=== PATIENT | female | born 1935 | race Caucasian/White ===

== ENCOUNTER → 2018-03-25 06:58 | Outpatient (CLI) | payer MEDICARE, OTHER, SELFPAY ==
[2018-03-25 08:33] LABS: Hemoglobin A1C% w Est Avg Glu 5.7 % (4.0-6.0)
[2018-03-25 08:47] LABS: Alanine Aminotransferase 20 IU/L (9-52); Albumin Globulin Ratio 0.9 (1.0-2.8); Alkaline Phosphatase 68 U/L (38-126); Aspartate Aminotransferase 20 IU/L (14-36); BUN Creatinine Ratio 16.7 (6-22); Bilirubin Total 0.4 mg/dL (0.2-1.3); Blood Urea Nitrogen 15 mg/dL (7-17); Calcium 9.6 mg/dL (8.4-10.2); Carbon Dioxide 30 mmol/L (22-32); Chloride 104 mmol/L (98-107); Cholesterol 169 mg/dL (140-199); Estimated Glomerular Filt Rate 59.8 mL/min (>60); Globulin 4.4 g/dL (1.7-4.1); Glucose 98 mg/dL (80-110); HDL Cholesterol 69 mg/dL (40-60); HEMOLYSIS < 15 (0-50); LDL Cholesterol Calculated 87 mg/dL (<100); Potassium 3.8 mmol/L (3.4-5.1); Sodium 142 mmol/L (137-145); Total Protein 8.4 g/dL (6.3-8.2); Triglycerides 64 mg/dL (35-150)
[2018-03-25 09:02] LABS: Free T3, Triiodothyronine Free 3.16 pg/mL (2.77-5.27); Free T4, Direct Thyroxine 1.22 ng/dL (0.78-2.19)
[2018-03-25 09:16] LABS: Thyroid Stimulating Hormone 3.93 uIU/mL (0.47-4.68)
[2018-03-25 09:23] LABS: Ferritin 70.7 ng/mL (11.1-264)
== END ==
PROVIDERS: PCP Physician Assistant; Visit Provider Physician Assistant
DX: E03.9 Hypothyroidism, unspecified (principal); R79.89 Other specified abnormal findings of blood chemistry; D64.9 Anemia, unspecified
CPT/HCPCS: 36415; 80053; 80061; 82728; 83036; 84439; 84443; 84481

== ENCOUNTER → 2018-04-17 07:14 | Outpatient (CLI) | payer MEDICARE, OTHER, SELFPAY ==
[2018-04-17 08:02] LABS: Add Manual Diff / Slide Review NO; Basophils Percent Auto 0.7 % (0-2); Eosinophils Percent Auto 1.2 % (2-4); Hematocrit 36.2 % (36-46); Hemoglobin 12.2 g/dL (12.0-16.0); Mean Corpuscular HGB Conc 33.6 % (30-36); Mean Corpuscular Hemoglobin 32.8 PG (26-34); Mean Corpuscular Volume 97.6 fL (80-100); Monocytes Percent Auto 8.9 % (3-14); Neutrophils Absolute Auto 3000 /uL (3000-5900); Neutrophils Percent Auto 64.2 % (50-75); Platelet Count 257 X10^3/uL (150-400); Red Blood Cell Count 3.71 X10^6/uL (4.0-5.2); Red Cell Distribution Width 12.9 % (11.6-14.8); White Blood Cell Count 4.7 X10^3/uL (4.5-11.0)
[2018-04-17 08:43] LABS: Ferritin 69.3 ng/mL (11.1-264)
[2018-04-17 08:57] LABS: Vitamin B12 870 pg/mL (239-931)
[2018-04-17 09:20] LABS: HEMOLYSIS < 15 (0-50); Iron 66 ug/dL (37-170)
[2018-04-17 09:30] LABS: Percent Iron Saturation 25 % (15-50); Total Iron Binding Capacity 262 ug/dL (265-497); Transferrin 212 mg/dL (206-381)
== END ==
PROVIDERS: PCP Physician Assistant; Visit Provider Physician Assistant
DX: D64.9 Anemia, unspecified (principal)
CPT/HCPCS: 36415; 82607; 82728; 83540; 83550; 85025

== ENCOUNTER → 2018-05-20 12:34 | Outpatient (CLI) | payer MEDICARE, OTHER, SELFPAY | PROVIDERS: PCP Physician Assistant; Visit Provider Physician Assistant | DX: R19.7 Diarrhea, unspecified (principal) | CPT/HCPCS: 87015; 87045; 87427 ==

== ENCOUNTER → 2018-05-21 10:06 | Outpatient (CLI) | payer MEDICARE, OTHER, SELFPAY ==
[2018-05-21 11:10] LABS: Clostridium Difficile Tox PCR Negative for C. diff
== END ==
PROVIDERS: PCP Physician Assistant; Visit Provider Physician Assistant
DX: R19.7 Diarrhea, unspecified (principal)
CPT/HCPCS: 87493

== ENCOUNTER → 2018-06-18 13:16 | Outpatient (CLI) | payer MEDICARE, OTHER, SELFPAY ==
[2018-06-18 15:08] LABS: Thyroid Stimulating Hormone 1.88 uIU/mL (0.47-4.68)
== END ==
PROVIDERS: PCP Physician Assistant; Visit Provider Physician Assistant
DX: E03.9 Hypothyroidism, unspecified (principal); R63.4 Abnormal weight loss
CPT/HCPCS: 36415; 84443

== ENCOUNTER 2018-07-04 12:30 | Emergency (ER) | payer MEDICARE, OTHER, SELFPAY ==
[2018-07-04 12:36] VITALS: BP 138/63; PULSE 80; RESP 16; TEMP 36.9; O2SAT 99; BMI 16.7
--- NOTE | 2018-07-04 12:48 | ED.GIBLEED ---
HPI - GI Bleed General Chief complaint: GI Bleed Stated complaint: BLACK STOOL, LIQUID Time Seen by Provider: 07/04/18 12:46 Source: patient Mode of arrival: ambulatory Limitations: no limitations History of Present Illness HPI Narrative: 82-year-old female here for evaluation of 2 episodes of black stools. Patient states she has had diarrhea for the past 4 months. 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 She states that she has diarrhea every time she goes the bathroom. She states that can be 1 time a day are multiple times a day. She states that last evening she had 1 episode of abdominal pain and then afterwards had black colored stools. She had 1 episode of black up the stools this morning. She states that over the past month about half the time she has dark-colored stools. Denies use of blood thinners or anti-inflammatories. Has never had a blood transfusion in the past. Has not seen a GI provider. Related Data Home Medications Medication Instructions Recorded Confirmed Melatonin See Label Instructions .ROUTE 05/22/18 06/11/18 .COMPLEX thyroid (pork) [Nature-Throid] 07/04/18 Previous Rx's Medication Instructions Recorded pneumococcal 13-conrado conj 0.5 ml IM ONCE #0.5 ml 05/22/18 vaccine-dip crm (PF) 0.5 mL IM syringe varicella-zoster glycoE [id number] 0.5 ml IM ONCE #1 each 05/22/18 adj(PF) 50 mcg/0.5 mL IM susp, kit levothyroxine 50 mcg tablet 50 mcg PO DAILY #45 tab 06/18/18 Allergies Allergy/AdvReac Type Severity Reaction Status Date / Time Penicillins [PENICILLINS] Allergy Intermediate Rash all Verified 06/11/18 12:30 over body wheat Allergy Intermediate Red Verified 06/11/18 12:30 Blotchy spots, mainly on face diary Allergy Intermediate red Uncoded 06/11/18 12:30 blotchy skin, mainly on face Nuts Allergy Intermediate Red Uncoded 06/11/18 12:30 blotchy spots, mainly on face Review of Systems Constitutional Denies fever(s) Cardiovascular Denies chest pain and Denies dyspnea Respiratory Denies dyspnea Gastrointestinal Gastrointestinal: Reports abdominal pain, Denies change in stool character, Denies coffee ground emesis, Denies constipation, Reports diarrhea, Denies nausea and Denies vomiting Comments: Black-colored stools Genitourinary Denies dysuria and Denies vaginal discharge Musculoskeletal Denies myalgias and Denies arthralgias Integumentary/Breasts Denies lesions and Denies rash Hematologic/Lymphatic Denies easy bleeding and Denies easy bruising [facility] Medical History H/O: hysterectomy (Acute) Hypothyroidism (Chronic Unknown) Osteopenia (Chronic Unknown) Social History Smoking Status: Never smoker second hand exposure: Yes (My used to smoke for 10 years, but then he quit in 1963) alcohol intake: current (Glass of wine at night, occasionally) substance use type: does not use Exam Initial Vital Signs Initial Vital Signs: Vital Signs Temperature 98.4 F 07/04/18 12:36 Pulse Rate 80 07/04/18 12:36 Respiratory Rate 16 07/04/18 12:36 Blood Pressure 138/63 07/04/18 12:36 Pulse Oximetry 99 07/04/18 12:36 Const General: cooperative, comfortable, well groomed and No acute distress Orientation: alert, awake and oriented x3 Resp Effort & Inspection: normal respiratory effort Auscultation: clear to auscultation bilaterally Cardio Rate: regular rate Rhythm: regular rhythm GI Inspection: non-distended Palpation: soft, No firm and No tender Rectal Exam: heme negative stool and No hemorrhoids Skin Lesions: no lesions Rashes: no rashes Neuro General: alert, awake and oriented x3 Cognition: normal cognition Speech: speech normal Extrem General: normal to inspection and capillary refill normal Psych Appearance: grossly normal and well kempt Course Orders Ordered: ED Orders 07/04/18 13:25 Basic Metabolic Panel Stat Complete Blood Count AUTO DIFF Stat Partial Thromboplastin Time Stat Prothrombin Time INR Stat Type and Screen Stat Vital Signs - 8 hr 07/04/18 12:36 07/04/18 14:03 Temperature 98.4 F Pulse Rate 80 70 Respiratory Rate 16 15 Blood Pressure 138/63 Blood Pressure [Right Arm] 133/64 Pulse Oximetry 99 98 MDM - GI Bleed Lab Data Attestation: I reviewed the patient's lab results. Result diagrams: 07/04/18 13:25 07/04/18 13:25 Lab Results 07/04/18 07/04/18 07/04/18 Range/Units 13:25 13:25 13:25 WBC 5.2 (4.5-11.0) X10^3/uL RBC 3.46 L (4.0-5.2) X10^6/uL Hgb 10.9 L (12.0-16.0) g/dL Hct 32.9 L (36-46) % MCV 95.1 (80-100) fL MCH 31.4 (26-34) PG MCHC 33.0 (30-36) % RDW 12.7 (11.6-14.8) % Plt Count 238 (150-400) X10^3/uL Neut % (Auto) 70.7 (50-75) % Lymph % (Auto) 21.1 L (25-40) % [place] % (Auto) 7.2 (3-14) % Eos % (Auto) 0.3 L (2-4) % Baso % (Auto) 0.7 (0-2) % Neut # (Auto) 3600 (4642-8281) /uL PT 11.9 (10.1-12.7) SECONDS INR 1.1 (0.9-1.3) APTT 31 (26.4-36.2) SECONDS Sodium 141 (137-145) mmol/L Potassium 3.8 (3.4-5.1) mmol/L Chloride 104 (98-107) mmol/L Carbon Dioxide 25 (22-32) mmol/L BUN 19 H (7-17) mg/dL Creatinine 1.00 (0.52-1.04) mg/dL Estimated GFR 53.0 L (>60) mL/min BUN/Creatinine Ratio 19.0 (6-22) Glucose 138 H (80-110) mg/dL Calcium 9.4 (8.4-10.2) mg/dL [facility] Narrative Medical decision making narrative: Patient was Hemoccult negative here in the emergency department however her story is somewhat concerning for an upper GI bleed. She is not tachycardic. Not hypotensive. Does not anemic. Has had diarrhea for the past 4 months. I did discuss all this with her. I informed her that she needed to talk with her primary doctor regarding a referral to see GI. She has had a colonoscopy in the past but she does not know what time this was. No indication for emergent admission here to the hospital. She was given return precautions. She expressed understanding and agreement with plan. Discharge Plan Departure Patient Disposition: Home Clinical Impression: Diarrhea Instructions: Diarrhea (Alternative Therapy), Diarrhea Activity Restrictions/Additional Instructions: Highly recommend you contact your primary care doctor to discuss referral to see Gastroenterology. Continue to increase your fluid intake. Return to the emergency department for any new or worsening symptoms Prescriptions: No Action Melatonin See Patient Comments .ROUTE .COMPLEX RF: 0 pneumoc 13-conrado conj-dip cr(PF) [Prevnar 13 (PF)] 0.5 mL syringe 0.5 ml IM ONCE Qty: 0.5 RF: 0 varicella-zoster [id number]-AS01B (PF) [Shingrix (PF)] 50 mcg/0.5 mL suspension for reconstitution 0.5 ml IM ONCE Qty: 1 RF: 1 levothyroxine 50 mcg tablet 50 mcg PO DAILY Qty: 45 RF: 1 thyroid (pork) [Nature-Throid] 32.5 mg tablet RF: 0
[2018-07-04 13:39] LABS: Add Manual Diff / Slide Review NO; Basophils Percent Auto 0.7 % (0-2); Eosinophils Percent Auto 0.3 % (2-4); Hematocrit 32.9 % (36-46); Hemoglobin 10.9 g/dL (12.0-16.0); Lymphocytes Percent Auto 21.1 % (25-40); Mean Corpuscular Hemoglobin 31.4 PG (26-34); Mean Corpuscular Volume 95.1 fL (80-100); Monocytes Percent Auto 7.2 % (3-14); Neutrophils Absolute Auto 3600 /uL (3000-5900); Neutrophils Percent Auto 70.7 % (50-75); Platelet Count 238 X10^3/uL (150-400); Red Blood Cell Count 3.46 X10^6/uL (4.0-5.2); Red Cell Distribution Width 12.7 % (11.6-14.8); White Blood Cell Count 5.2 X10^3/uL (4.5-11.0)
[2018-07-04 13:45] LABS: INR 1.1 (0.9-1.3); Prothrombin Time 11.9 SECONDS (10.1-12.7)
[2018-07-04 13:48] LABS: PTT Partial Thromboplastin Tim 31 SECONDS (26.4-36.2)
[2018-07-04 13:50] LABS: Blood Urea Nitrogen 19 mg/dL (7-17); Calcium 9.4 mg/dL (8.4-10.2); Carbon Dioxide 25 mmol/L (22-32); Chloride 104 mmol/L (98-107); Glucose 138 mg/dL (80-110); HEMOLYSIS < 15 (0-50); Potassium 3.8 mmol/L (3.4-5.1); Sodium 141 mmol/L (137-145)
[2018-07-04 14:03] VITALS: BP 133/64; PULSE 70; RESP 15; O2SAT 98
[2018-07-04 14:19] VITALS: BP 133/64; PULSE 67; RESP 16; O2SAT 99
== END 2018-07-04 14:22 | disposition home or self-care (01) ==
PROVIDERS: Emergency Provider Emergency Medicine; PCP Physician Assistant
DX: R19.7 Diarrhea, unspecified (principal)
CPT/HCPCS: 36591; 80048; 85025; 85610; 85730; 86850; 86900; 86901; 99283

== ENCOUNTER → 2018-07-10 10:56 | Outpatient (CLI) | payer MEDICARE, OTHER, SELFPAY ==
[2018-07-10 12:49] LABS: HEMOLYSIS < 15 (0-50); Iron 56 ug/dL (37-170)
[2018-07-10 13:01] LABS: Percent Iron Saturation 21 % (15-50); Total Iron Binding Capacity 267 ug/dL (265-497); Transferrin 222 mg/dL (206-381)
[2018-07-10 13:21] LABS: Thyroid Stimulating Hormone 1.45 uIU/mL (0.47-4.68)
[2018-07-10 13:26] LABS: Ferritin 62.7 ng/mL (11.1-264)
== END ==
PROVIDERS: PCP Physician Assistant; Visit Provider Physician Assistant
DX: M81.0 Age-related osteoporosis without current pathological fracture (principal); Z78.0 Asymptomatic menopausal state; E03.9 Hypothyroidism, unspecified; Z51.81 Encounter for therapeutic drug level monitoring; K92.1 Melena; E28.39 Other primary ovarian failure
CPT/HCPCS: 36415; 77080; 82728; 83540; 83550; 84443; 87493

== ENCOUNTER 2018-09-22 14:25 | Emergency (ER) | payer MEDICARE, OTHER, SELFPAY ==
[2018-09-22 14:30] VITALS: BP 180/81; PULSE 70; RESP 14; TEMP 36.9; O2SAT 99
[2018-09-22 15:16] VITALS: BP 160/58; PULSE 62; RESP 15; O2SAT 98
--- NOTE | 2018-09-22 15:44 | ED_ITS ---
HPI - Weakness General Chief complaint: Weakness Stated complaint: Diarrhea, weakness Time Seen by Provider: 09/22/18 15:28 Source: patient Mode of arrival: ambulatory Limitations: no limitations History of Present Illness HPI Narrative: Patient is a 83-year-old female who presents with generalized weakness. She apparently fell diarrhea ongoing for the last 6 months. Says that it stopped last month when she began taking Pepto-Bismol. She has no vomiting. She occasionally gets shortness of breath according to nursing reports but denies any shortness of breath or chest pain to me. She has no abdominal pain. She does feel extremely weak with mild activity. Related Data Home Medications Medication Instructions Recorded Confirmed Pill To Relax 1 tab PO BID 09/22/18 09/22/18 Calcium 1 dose PO DAILY 09/22/18 09/22/18 Probiotic 1 cap PO DAILY 09/22/18 09/22/18 Vitamin D3 1 cap PO DAILY 09/22/18 09/22/18 multivitamin 1 tab PO DAILY 09/22/18 09/22/18 Previous Rx's Medication Instructions Recorded pneumococcal 13-conrado conj 0.5 ml IM ONCE #0.5 ml 05/22/18 vaccine-dip crm (PF) 0.5 mL IM syringe varicella-zoster glycoE [id number]-AS01B 0.5 ml IM ONCE #1 each 05/22/18 adj(PF) 50 mcg/0.5 mL IM susp, kit levothyroxine 50 mcg tablet 50 mcg PO DAILY #45 tab 09/07/18 donepezil 5 mg tablet 2.5 mg PO DAILY #15 tab 09/10/18 Allergies Allergy/AdvReac Type Severity Reaction Status Date / Time Penicillins [PENICILLINS] Allergy Intermediate Rash all Verified 09/22/18 14:34 over body wheat Allergy Intermediate Red Verified 09/22/18 14:34 Blotchy spots, mainly on face diary Allergy Intermediate red Uncoded 09/04/18 08:52 blotchy skin, mainly on face Nuts Allergy Intermediate Red Uncoded 09/04/18 08:52 blotchy spots, mainly on face Review of Systems Review of Systems All systems reviewed & are unremarkable except as noted in HPI and below Constitutional Denies chills, Denies fever(s), Denies frequent falls and Reports weakness Cardiovascular Denies chest pain, Denies irregular heart rhythm, Denies lightheadedness, Denies palpitations, Denies dyspnea, Denies dyspnea on exertion and Denies orthopnea Respiratory Denies cough, Denies dyspnea, Denies dyspnea on exertion and Denies wheezing Gastrointestinal Gastrointestinal: Denies abdominal pain, Denies change in bowel habits, Denies diarrhea, Denies nausea and Denies vomiting Genitourinary Denies hematuria, Denies flank pain, Denies urinary incontinence and Denies urinary urgency Musculoskeletal Denies back pain, Denies muscle weakness, Denies numbness and Denies tingling Integumentary/Breasts Denies pruritus, Denies erythema, Denies rash and Denies wounds Neurologic Denies frequent falls, Denies numbness, Denies tingling and Reports weakness Endocrine Denies palpitations Allergic/Immunologic Denies wheezing [facility] Medical History H/O: hysterectomy (Acute) Hypothyroidism (Chronic Unknown) Osteopenia (Chronic Unknown) Social History Smoking Status: Never smoker second hand exposure: Yes (My used to smoke for 10 years, but then he quit in 1963) alcohol intake: current (Glass of wine at night, occasionally) substance use type: does not use Exam Initial Vital Signs Initial Vital Signs: Vital Signs Temperature 98.5 F 09/22/18 14:30 Pulse Rate 70 09/22/18 14:30 Respiratory Rate 14 09/22/18 14:30 Blood Pressure 180/81 H 09/22/18 14:30 Pulse Oximetry 99 09/22/18 14:30 GENERAL: Alert frail elderly female no acute distress HEENT: Head atraumatic,EOMI, pupils reactive CARDIOVASCULAR: Regular rate and rhythm without murmurs, rubs or gallops. RESPIRATORY: Breath sounds equal bilaterally, no wheezes rales or rhonchi. ABDOMEN: Soft, nontender. Normoactive bowel sounds all 4 quadrants. No guarding or rebound. EXTREMITIES: Normal range of motion, no clubbing or edema. Neurovascularly intact NEUROLOGICAL: Alert and oriented x4.Normal gait and speech. Cranial nerves II through XII grossly intact. SKIN: Warm, dry, no laceration, no petechiae, no rashes or lesions. Course Orders Ordered: ED Orders 09/22/18 14:36 EKG-12 Lead Stat 09/22/18 15:35 Complete Blood Count AUTO DIFF Stat Comprehensive Metabolic Panel Stat Lipase Stat Partial Thromboplastin Time Stat Prothrombin Time INR Stat Troponin & CK Cardiac Panel Stat Discontinued Medications Sodium Chloride (Normal Saline 0.9%) 500 mls @ 1,000 mls/hr IV BOLUS PRN PRN Reason: Fluid replacement Last Infusion: 09/22/18 17:15 Dose: 0 mls/hr Admin: 09/22/18 16:45 Dose: 1,000 mls/hr Vital Signs - 8 hr 09/22/18 14:30 09/22/18 15:16 09/22/18 16:00 Temperature 98.5 F Pulse Rate 70 62 71 Respiratory Rate 14 15 13 Blood Pressure 180/81 H Blood Pressure [Right Arm] 160/58 H 172/60 H Pulse Oximetry 99 98 100 09/22/18 16:30 09/22/18 17:05 09/22/18 17:39 Temperature 97.4 F L Pulse Rate 68 70 80 Respiratory Rate 15 13 16 Blood Pressure 172/74 H Blood Pressure [Right Arm] 171/60 H 183/66 H Pulse Oximetry 100 100 100 MDM - Weakness Lab Data Attestation: I reviewed the patient's lab results. Result diagrams: 09/22/18 15:35 09/22/18 15:35 Lab Results 09/22/18 09/22/18 09/22/18 Range/Units 15:35 15:35 15:35 WBC 4.9 (4.5-11.0) X10^3/uL RBC 3.47 L (4.0-5.2) X10^6/uL Hgb 11.1 L (12.0-16.0) g/dL Hct 33.1 L (36-46) % MCV 95.4 (80-100) fL MCH 32.1 (26-34) PG MCHC 33.6 (30-36) % RDW 13.0 (11.6-14.8) % Plt Count 234 (150-400) X10^3/uL Neut % (Auto) 65.3 (50-75) % Lymph % (Auto) 25.7 (25-40) % [place] % (Auto) 7.9 (3-14) % Eos % (Auto) 0.3 L (2-4) % Baso % (Auto) 0.8 (0-2) % Neut # (Auto) 3200 (3672-8053) /uL PT 11.3 (10.1-12.7) SECONDS INR 1.0 (0.9-1.3) APTT 32 (26.4-36.2) SECONDS Sodium 138 (137-145) mmol/L Potassium 4.3 (3.4-5.1) mmol/L Chloride 101 (98-107) mmol/L Carbon Dioxide 28 (22-32) mmol/L BUN 17 (7-17) mg/dL Creatinine 1.00 (0.52-1.04) mg/dL Estimated GFR 52.8 L (>60) mL/min BUN/Creatinine Ratio 17.0 (6-22) Glucose 91 (80-110) mg/dL Calcium 9.4 (8.4-10.2) mg/dL Total Bilirubin 0.2 (0.2-1.3) mg/dL AST 21 (14-36) IU/L ALT 25 (9-52) IU/L Alkaline Phosphatase 62 (38-126) U/L Total Creatine Kinase 38 (30-135) U/L CK-MB (CK-2) TNP CK-MB (CK-2) Rel Index TNP Troponin I < 0.012 (0.01-0.034) ng/mL Total Protein 8.1 (6.3-8.2) g/dL Albumin 4.0 (3.5-5.0) g/dL Globulin 4.1 (1.7-4.1) g/dL Albumin/Globulin Ratio 1.0 (1.0-2.8) Lipase 54 (23-300) U/L Urine Dip Bedside Urine Glucose Negative Bedside Urine Bilirubin - Negative Bedside Urine Ketone - Negative Urine Specific [place] 1.015 Bedside Urine Occult Blood - Negative Bedside Urine pH 6.0 Bedside Urine Protein - Negative Bedside Urine Urobilinogen - Negative Bedside Urine Nitrite - Negative Bedside Urine Leukocytes - Negative Esterase ECG Data Attestation: I personally reviewed and interpreted this ECG as follows: Prior ECG tracings: not available for review Interpretation: Normal sinus rhythm rate [address] changes, IA interval 145 no priors to compare MDM Narrative Medical decision making narrative: Patient is nontoxic she is ambulatory to the restroom multiple times. No source of weakness at this time she is not anemic electrolytes within normal limits. She is given a small amount of fluid. Recommend follow up with her primary care provider. I discussed all findings with the patient and sister, Education has been performed regarding treatment plan, diagnosis, warning signs and symptoms and all concerns have been addressed. Verbally agree with and understood all of the above. Discharge Plan Departure Patient Disposition: Home Clinical Impression: Diarrhea Discharge Date/Time: 09/22/18 17:39 Interventions: ED Discharge Assessment Last Done: 09/22/18 17:39 Instructions: Diarrhea Activity Restrictions/Additional Instructions: *You have been diagnosed with chronic diarrhea, generalized weakness *What to do: At this time blood work is reassuring no sign of anemia or electrolyte abnormality or dehydration. May require further testing with her primary care provider *Continue to take medications as directed *Follow up with your primary care provider in 2-3 days *Return to ER if you should have increasing weakness, blood in stool, passing out or any new, worsening or concerning symptoms Prescriptions: No Action pneumoc 13-conrado conj-dip cr(PF) [Prevnar 13 (PF)] 0.5 mL syringe 0.5 ml IM ONCE Qty: 0.5 RF: 0 varicella-zoster [id number] (PF) [Shingrix (PF)] 50 mcg/0.5 mL suspension for reconstitution 0.5 ml IM ONCE Qty: 1 RF: 1 levothyroxine 50 mcg tablet 50 mcg PO DAILY Qty: 45 RF: 1 donepezil 5 mg tablet 2.5 mg PO DAILY Qty: 15 RF: 1 Pill To Relax 1 tab PO BID RF: 0 multivitamin Tablet 1 tab PO DAILY RF: 0 Calcium 1 dose PO DAILY RF: 0 Probiotic 1 cap PO DAILY RF: 0 Vitamin D3 1 cap PO DAILY RF: 0 Referrals: Sasha Mesa PA-C [Primary Care Provider] -
[2018-09-22 15:49] LABS: Add Manual Diff / Slide Review NO; Basophils Percent Auto 0.8 % (0-2); Eosinophils Percent Auto 0.3 % (2-4); Hematocrit 33.1 % (36-46); Hemoglobin 11.1 g/dL (12.0-16.0); Lymphocytes Percent Auto 25.7 % (25-40); Mean Corpuscular HGB Conc 33.6 % (30-36); Mean Corpuscular Hemoglobin 32.1 PG (26-34); Mean Corpuscular Volume 95.4 fL (80-100); Monocytes Percent Auto 7.9 % (3-14); Neutrophils Absolute Auto 3200 /uL (1500-7000); Neutrophils Percent Auto 65.3 % (50-75); Platelet Count 234 X10^3/uL (150-400); Red Blood Cell Count 3.47 X10^6/uL (4.0-5.2); White Blood Cell Count 4.9 X10^3/uL (4.5-11.0)
[2018-09-22 15:56] LABS: Prothrombin Time 11.3 SECONDS (10.1-12.7)
[2018-09-22 15:58] LABS: PTT Partial Thromboplastin Tim 32 SECONDS (26.4-36.2)
[2018-09-22 16:00] VITALS: BP 172/60; PULSE 71; RESP 13; O2SAT 100
[2018-09-22 16:00] LABS: Alanine Aminotransferase 25 IU/L (9-52); Alkaline Phosphatase 62 U/L (38-126); Aspartate Aminotransferase 21 IU/L (14-36); Bilirubin Total 0.2 mg/dL (0.2-1.3); Blood Urea Nitrogen 17 mg/dL (7-17); Calcium 9.4 mg/dL (8.4-10.2); Carbon Dioxide 28 mmol/L (22-32); Chloride 101 mmol/L (98-107); Creatine Kinase 38 U/L (30-135); Estimated Glomerular Filt Rate 52.8 mL/min (>60); Globulin 4.1 g/dL (1.7-4.1); Glucose 91 mg/dL (80-110); HEMOLYSIS < 15 (0-50); Lipase 54 U/L (23-300); Potassium 4.3 mmol/L (3.4-5.1); Sodium 138 mmol/L (137-145); Total Protein 8.1 g/dL (6.3-8.2)
[2018-09-22 16:12] LABS: Troponin I < 0.012 ng/mL (0.01-0.034)
[2018-09-22 16:30] VITALS: BP 171/60; PULSE 68; RESP 15; O2SAT 100
[2018-09-22] MEDS: SODIUM CHLORIDE 0.9% 500 ML 1000 ML IV (16:45)
[2018-09-22 17:05] VITALS: BP 183/66; PULSE 70; RESP 13; O2SAT 100
[2018-09-22 17:39] VITALS: BP 172/74; PULSE 80; RESP 16; TEMP 36.3; O2SAT 100
== END 2018-09-22 17:39 | disposition home or self-care (01) ==
PROVIDERS: Emergency Provider Emergency Medicine; PCP Physician Assistant
DX: R19.7 Diarrhea, unspecified (principal)
CPT/HCPCS: 36415; 80053; 81003; 82550; 83690; 84484; 85025; 85610; 85730; 93005; 99284

== ENCOUNTER → 2018-09-23 15:06 | Outpatient (CLI) | payer MEDICARE, OTHER, SELFPAY ==
[2018-09-23 15:22] LABS: Hematocrit 35.7 % (36-46); Hemoglobin 11.8 g/dL (12.0-16.0)
[2018-09-23 15:40] LABS: Iron 52 ug/dL (37-170)
[2018-09-23 16:12] LABS: Thyroid Stimulating Hormone 1.76 uIU/mL (0.47-4.68)
== END ==
PROVIDERS: PCP Physician Assistant; Visit Provider Physician Assistant
DX: D50.9 Iron deficiency anemia, unspecified (principal); E03.9 Hypothyroidism, unspecified
CPT/HCPCS: 36415; 83540; 84443; 85014; 85018

== ENCOUNTER → 2018-10-21 10:19 | Outpatient (CLI) | payer MEDICARE, OTHER, SELFPAY ==
--- NOTE | 2018-10-21 10:22 | DI.RAD.S_ITS ---
PROCEDURE: XR WRIST RT MIN 3V INDICATIONS: pain and bruising wrist TECHNIQUE: 3 views of the wrist were acquired. COMPARISON: None. FINDINGS: Bones: No fractures or dislocations. No suspicious bony lesions. First CMC and triscaphe joint degeneration . Marginal lucency measuring 2 mm projecting at the third metacarpal head, nonspecific Soft tissues: No suspicious soft tissue calcifications. IMPRESSION: No fracture. Mild degenerative changes as above. Dictated by: Cas Morillo M.D. on 10/21/2018 at 10:56 Approved by: Cas Morillo M.D. on 10/21/2018 at 10:58
== END ==
PROVIDERS: PCP Physician Assistant; Visit Provider Physician Assistant
DX: M25.531 Pain in right wrist (principal); M18.11 Unilateral primary osteoarthritis of first carpometacarpal joint, right hand; M19.031 Primary osteoarthritis, right wrist
CPT/HCPCS: 73110

== ENCOUNTER → 2018-11-24 11:46 | Outpatient (CLI) | payer MEDICARE, OTHER, SELFPAY ==
[2018-11-24 12:04] LABS: Hematocrit 34.3 % (36-46); Hemoglobin 11.5 g/dL (12.0-16.0)
[2018-11-24 12:23] LABS: Blood Urea Nitrogen 22 mg/dL (7-17); Calcium 9.8 mg/dL (8.4-10.2); Carbon Dioxide 29 mmol/L (22-32); Chloride 101 mmol/L (98-107); Estimated Glomerular Filt Rate 52.8 mL/min (>60); Glucose 141 mg/dL (80-110); HEMOLYSIS < 15 (0-50); Potassium 4.4 mmol/L (3.4-5.1); Sodium 141 mmol/L (137-145)
[2018-11-24 13:12] LABS: Vitamin B12 759 pg/mL (239-931)
[2018-11-24 13:57] LABS: HEMOLYSIS < 15 (0-50); Iron 66 ug/dL (37-170)
[2018-11-24 14:08] LABS: Percent Iron Saturation 24 % (15-50); Total Iron Binding Capacity 280 ug/dL (265-497); Transferrin 218 mg/dL (206-381)
[2018-11-24 14:30] LABS: Thyroid Stimulating Hormone 1.43 uIU/mL (0.47-4.68)
[2018-11-24 16:05] LABS: Vitamin D 25 Hydroxy (D3) 56.6 ng/mL (30.0-100.0)
== END ==
PROVIDERS: PCP Physician Assistant; Visit Provider Physician Assistant
DX: E03.9 Hypothyroidism, unspecified (principal); M81.0 Age-related osteoporosis without current pathological fracture; R53.1 Weakness; R53.83 Other fatigue
CPT/HCPCS: 36415; 80048; 82306; 82607; 83540; 83550; 84443; 85014; 85018

== ENCOUNTER → 2018-12-11 12:39 | Outpatient (CLI) | payer MEDICARE, OTHER, SELFPAY ==
--- NOTE | 2018-12-11 12:41 | DI.ECHO.S_ITS ---
[facility]---------+ [facility] +---------+ : : [address] : [place] : : : : [id number] : : : : Phone: [phone]+ Echocardiogram Report + + :Name: DAILY DOLAN Study Date: 12/11/2018 Height: 60 in : [id number]: [facility] Weight: 91 lb : : Gender: Female BSA: 1.3 m2 : :: 1935 Age: 83 yrs BP: 118/60 mmHg: :Reason For Study: Heart Murmur : :Ordering Physician: SATINDER Baez : :Moshe Performed By: Claudia Maguire : :Referring: CAROL DIALLO : + + Interpretation Summary The left ventricle is normal in size, wall thickness, and systolic function without any focal wall motion abnormalities with the ejection fraction visually estimated to be 60-65%. Diastolic parameters suggest probable normal left ventricular diastolic function and normal filling pressures. The right ventricle is normal in size and function. Pulmonary artery pressures cannot be estimated because of the lack of a measurable TR jet velocity but the IVC suggests a CVP of around 3 mmHg. Both atria are normal in size. There is moderate to severe mitral annular calcification but no significant mitral valve stenosis with a mean gradient of 3.6 mmHg. There is mild to moderate mitral regurgitation. There is no other significant valvular heart disease. Procedure: A two-dimensional transthoracic echocardiogram with color flow and Doppler was performed. The study quality was technically adequate. There is no prior echocardiogram noted for this patient. The patient was in normal sinus rhythm during the exam. Left Ventricle: The left ventricle is normal in size, wall thickness, and systolic function without any focal wall motion abnormalities. The ejection fraction is estimated to be 60-65%. Diastolic parameters suggest probable normal left ventricular diastolic function and normal filling pressures. Right Ventricle: The right ventricle is normal in size and function. Atria: Both atria are normal in size. The interatrial septum is intact with no evidence for an atrial septal defect. Mitral Valve: There is moderate to severe mitral annular calcification. No significant mitral valve stenosis. The mitral valve mean gradient is 3.6 mmHg. There is mild to moderate mitral regurgitation. Aortic Valve: The aortic valve is not well visualized. The aortic valve is mildly calcified. The aortic valve opens well. There is no hemodynamically significant valvular aortic stenosis. No aortic regurgitation is present. Tricuspid Valve: The tricuspid valve is normal in structure and function. There is a trace or physiologic amount of tricuspid regurgitation. Pulmonary artery pressures cannot be estimated because of the lack of a measurable TR jet velocity but the IVC suggests a CVP of around 3 mmHg. Pulmonic Valve: The pulmonic valve is not well visualized. There is no other significant valvular heart disease. Great Vessels: The aortic root is normal size. The ascending aorta is normal in size. The IVC is of normal diameter and collapses greater than 50% with a sniff. This suggests a low right atrial pressure of 3 mm Hg. Pericardium/ Pleura There is no pericardial effusion. There is no pleural effusion. MMode/2D Measurements & Calculations LVIDd: 4.6 cm LVOT diam: 1.9 cm LVIDs: 3.0 cm Ao root diam: 2.2 cm FS: 33.8 % asc Aorta Diam: 2.7 cm IVSd: 0.69 cm LVPWd: 0.77 cm LV rainey. diameter/BSA (cm/m^2): 3.4 LV sys. diameter/BSA (cm/m^2): 2.3 LA A2 area: 9.4 cm2 RA long axis: 4.0 cm LA A4 area: 15.3 cm2 RA area: 11.8 cm2 LA length (vol): 3.6 cm RA vol: 29.6 ml LA vol: 33.9 ml RA : 22.2 ml/m2 LA vol index: 25.4 ml/m2 IVC diam: 1.8 cm TAPSE: 2.2 cm Doppler Measurements & Calculations Ao V2 max: 164.1 cm/sec LVOT Max [place]: 90.2 cm/sec Ao V2 mean: 102.7 cm/sec LV V1 max P.3 mmHg Ao max P.8 mmHg LV V1 VTI: 15.3 cm Ao mean P.8 mmHg HILARIA(I,D): 1.4 cm2 Ao V2 VTI: 29.6 cm HILARIA(V,D): 1.5 cm2 sev ratio: 0.52 HILARIA indexed to BSA (cm^2/m^2): 1.0 MV E max [place]: 125.6 cm/sec PA V2 max: 68.3 cm/sec MV A max [place]: 135.5 cm/sec PA V2 mean: 45.1 cm/sec MV E/A: 0.93 PA mean P.91 mmHg Med Peak E' [place]: 3.7 cm/sec PA pr(Accel): 37.4 mmHg E/E' med: 34.1 Lat Peak E' [place]: 6.6 cm/sec E/E' lat: 18.9 E/e' average: 26.5 MV dec time: 0.28 sec MVA(VTI): 1.0 cm2 MV V2 mean: 89.4 cm/sec SV(LVOT): 41.4 ml MV mean P.6 mmHg MV V2 VTI: 41.3 cm Reading Physician:CRISTIANA
== END ==
PROVIDERS: PCP Physician Assistant; Visit Provider Physician Assistant
DX: R01.1 Cardiac murmur, unspecified (principal); I34.0 Nonrheumatic mitral (valve) insufficiency; R53.83 Other fatigue; R53.1 Weakness
CPT/HCPCS: 93306

== ENCOUNTER 2018-12-18 11:15 | Outpatient (RCR) | payer MEDICARE, OTHER, SELFPAY ==
--- NOTE | 2018-10-13 15:00 | PT.OPPOC ---
Current Diagnoses Other symptoms and signs involving cognitive functions and awareness (10/13/18) Other malaise (10/13/18) Provider Visit Care Team Role Provider Type Sasha Mesa PA-C Attending Provider Advanced Director Voice Primary Care Provider Specialty: Medical Address: [address] [place] [address], [id number] Email: [email or web address] Plan Of Care PT-OP-T Assessment and Plan Start: 10/10/18 16:34 Freq: Status: Active Protocol: Document 10/13/18 09:05 LRN (Rec: 10/13/18 16:22 LRN [id number]) Physical Therapy Assessment Rehab Potential Rehabilitation Potential Excellent Evaluation Complexity Number of Personal Factors/Comorbidities 3 or More Number of Body Systems Impaired 3 Clinical Presentation at Evaluation Stable Impairments Impairments Activity Tolerance Balance Strength Other Concerns Age Related Concerns Possible cognitive decline. 83 yrs old. Barriers to Rehabilitation Pt reportedly lives with handicapped daughter Goals Endurance Impairment Decreased endurance Snf Goal (LTG) Pt will be able to return to participating in the [facility] exercise class 3x/week. 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 LTG Duration 11/13/18 Self care program Impairment Lacks self care program Snf Goal (LTG) Pt will be independent in self care general strengthening program. LTG Duration 12/12/18 Assessment Summary Assessment Pt presents with general weakness, and was able to ambulate 918 ft in 6 minutes and was fatigued at end of gait. She moves cautiously and slowly due to fear of unsteadiness and possible loss of balance. The pt will benefit from skilled physical therapy to improve her general strength and confidence with mobility, and progress her towards participating in a group exercise program at the [facility] and to improve her endurance for improved function at home with daily laundry chores. Physical Therapy Plan Frequency and Duration Frequency of Treatment 2x/Week Duration of Treatment 6-8 weeks Plan of Care Start Date 10/13/18 Plan of Care End Date 12/12/18 Therapeutic Interventions Therapeutic Interventions Balance Training Home Exercise Program Neuromuscular Re-education Patient/Caregiver Education Self-Care/Home Management Therapeutic Activities Therapeutic Exercises Modalities Cold Pack/Ice Massage Hot Packs Next Visit Focus/Plan Next Note Type Treatment Note Next Visit Plan Check LE strength, start aerobic conditioning with bike , seated stepper, UBE, general LE/UE strengthening with T- Band and progress education in HEP. Check tandem standing balance and TUG, 30 sec sit to stand, and complete ABC Questionnaire. Plan of Care Dates Plan of Care Start Date 10/13/18 Plan of Care End Date 12/12/18 Please Sign and Return: I have reviewed this Plan of Care and certify that the skilled therapy services above are required to meet the patient?s needs. Physician Signature Date Printed Name and Credentials Clinical Instructor Signature Printed Name and Credentials
--- NOTE | 2018-10-13 15:00 | PT.OIE ---
Current Diagnoses Other symptoms and signs involving cognitive functions and awareness (10/13/18) Other malaise (10/13/18) Past Medical History (Last Reviewed 09/29/18 @ 11:08 by Nelli Miranda DO) H/O: hysterectomy (Acute) Hypothyroidism (Chronic Unknown) Osteopenia (Chronic Unknown) Provider Visit Care Team Role Provider Type Sasha Mesa PA-C Attending Provider Advanced Beer Maker Primary Care Provider Specialty: Medical Address: [address] [place] [address], [facility] Email: [email or web address] Physical Therapy Initial Evaluation PT-OP-A Visit Information Start: 10/10/18 16:34 Freq: Status: Active Protocol: Document 10/13/18 09:05 LRN (Rec: 10/13/18 10:02 LRN [id number]) Out-Patient Physical Therapy Visit Information Visit Information Visit Type Initial Evaluation Visit Start Time 09:05 Visit Stop Time 09:53 Total Visit Minutes 48 Visit Number 1 Number of GAS SINGER Visits 0 Evaluation Information Evaluation Date 10/13/18 PT-OP-B Current Condition Start: 10/10/18 16:34 Freq: Status: Active Protocol: Document 10/13/18 09:05 LRN (Rec: 10/13/18 10:02 LRN [id number]) Current Condition History of Current Condition Onset Date 03/2018 Current Complaints Weakness. History of Current Condition Had a terrible bout of diarrhea and became very weak and deconditioned, and now can 't get her energy back. She is stressed and is having difficulty sleeping. Legs feel weak with walking and after standing a few minutes. Lives with daughter. PMH: Pt reports L leg short. 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 L Low back hurts if sits wrong and stands too. Per intake sheet pt has hx of heart attack, joint replacement, thyroid disorder, memory loss. Records review indicates: Osteoporosis, anxiety, cognitive decline. Future Testing and Treatments Planned Testing for possible Alzheimers in [place]. Waiting for appointment. 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 Center exercise class 3x/ week. Prior Functional Status Baseline Function- ADL's Independent Baseline Function- Mobility Independent Baseline Function- Recreation/Hobbies [facility]. Center ex class 3x/week. 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 Functional Limitations- Recreation/ Unable to participate in [employer] Center ex class. After participating for 4 weeks she was still not able to finish the full class because she became very weak after a few minutes. Functional Limitations- Other Drives cautiously. Personal Factors Other Personal Factors That May Effect Lives with handicapped Therapy/Recovery daughter who tires easily. PT-OP-D Balance Start: 10/10/18 16:34 Freq: Status: Active Protocol: Document 10/13/18 09:05 LRN (Rec: 10/13/18 16:22 LRN [id number]) Chou Balance Assessment Evaluation Sitting to Standing Ability Independent w/out Hands Unsupported Stance Safely- 2 minutes Sitting Unsupported, Feet on Floor Safely- 2 minutes Standing to Sitting Ability Safely, Minimal Hand Use Transfer Ability Safely, Minimal Hand Use Unsupported Stance- Eyes Closed Safely, 10 seconds Unsupported Stance- Eyes Open Independent, 1 minute Reaching Forward Standing Safely, 5 inches Pick- Up Object From Floor Independent/Safe Look Behind Shoulder - Standing Shifts Weight Well Turning 360 Degrees Turns Bilateral, < 4 secs Unsupported Stance, Alternating Feet on (I)- 8 Steps in 20 secs Stair Unilateral Leg Stance Lifts Leg/Holds 5-10 secs Total Score Chou Total Score (out of 56 points) 50 PT-OP-E Functional Tests Start: 10/10/18 16:34 Freq: Status: Active Protocol: Document 10/13/18 09:05 LRN (Rec: 10/13/18 10:02 LRN [id number]) Functional Tests 6 Minute Walk Test Distance 918 ft Device Used none Comments Independent, no asst device Five Times Sit to Stand Test Score 11 Comments Webbed chair, no use of hands. PT-OP-M Strength Start: 10/10/18 16:34 Freq: Status: Active Protocol: Document 10/13/18 09:05 LRN (Rec: 10/13/18 16:22 LRN [id number]) Shoulder Strength Shoulder Manual Muscle Testing Right Comments Generally 3+/5, except IR 3/5 Left Comments Generally 3+/5, except IR 3/5 Elbow/Forearm Strength Elbow and Forearm Manual Muscle Testing Right Comments Generally 3+/5. Left Comments Generally 3+/5. Hip Strength Hip Manual Muscle Testing Right Flexion (L2) 4- Good- External Rotation 4- Good- Internal Rotation 4- Good- Left Flexion (L2) 4- Good- External Rotation 4- Good- Internal Rotation 4- Good- Knee Strength Knee Manual Muscle Testing Right Flexion (S2) 4+ Good+ Extension (L3) 5 Normal Left Flexion (S2) 4+ Good+ Extension (L3) 5 Normal Ankle/Foot Strength Ankle and Foot Manual Muscle Testing Right Dorsiflexion (L4) 5 Normal Plantarflexion (S1) 5 Normal Left Dorsiflexion (L4) 5 Normal Plantarflexion (S1) 5 Normal PT-OP-Q Treatments Start: 10/10/18 16:34 Freq: Status: Active Protocol: Document 10/13/18 09:05 LRN (Rec: 10/13/18 16:22 LRN [id number]) Therapeutic Exercises Sitting Exercises Sit to stand Reps/Minutes 10x Knee flex Side bilateral Resistance Lev 2 Reps/Minutes 15x1 Knee ext Side bilateral Resistance 2# Reps/Minutes 15x1 Standing Exercises Heel Raises Side bilateral Reps/Minutes 10x each Self-Care/Home Management Treatment Education Patient Education Home Exercise Program Activities Self-Care/Home Management Activities Issued and reviewed Written I/ S for HEP: Knee flex/ext, sit to stand, Bridging. PT-OP-T Assessment and Plan Start: 10/10/18 16:34 Freq: Status: Active Protocol: Document 10/13/18 09:05 LRN (Rec: 10/13/18 16:22 LRN [id number]) Physical Therapy Assessment Rehab Potential Rehabilitation Potential Excellent Evaluation Complexity Number of Personal Factors/Comorbidities 3 or More Number of Body Systems Impaired 3 Clinical Presentation at Evaluation Stable Impairments Impairments Activity Tolerance Balance Strength Other Concerns Age Related Concerns Possible cognitive decline. 83 yrs old. Barriers to Rehabilitation Pt reportedly lives with handicapped daughter Goals Endurance Impairment Decreased endurance Assisted Goal (LTG) Pt will be able to [facility] to [facility]. LTG Duration 12/12/18 Strength Impairment Generalized weakness Register In [place] Goal (LTG) Pt will be able to perform functional activities (laundry duties) without fatigue. LTG Duration 11/13/18 Self care program Impairment Lacks self care program Assisted Goal (LTG) Pt will be independent in self care general strengthening program. LTG Duration 12/12/18 Assessment Summary Assessment Pt presents with general weakness, and was able to ambulate 918 ft in 6 minutes and was fatigued at end of gait. She moves cautiously and slowly due to fear of unsteadiness and possible loss of balance. The pt will benefit from skilled physical therapy to improve her general strength and confidence with mobility, and progress her towards participating in a group exercise program [facility] [employer] and to improve her endurance for improved function at home with daily laundry chores. Physical Therapy Plan Frequency and Duration Frequency of Treatment 2x/Week Duration of Treatment 6-8 weeks Plan of Care Start Date 10/13/18 Plan of Care End Date 12/12/18 Therapeutic Interventions Therapeutic Interventions Balance Training Home Exercise Program Neuromuscular Re-education Patient/Caregiver Education Self-Care/Home Management Therapeutic Activities Therapeutic Exercises Modalities Cold Pack/Ice Massage Hot Packs Next Visit Focus/Plan Next Note Type Treatment Note Next Visit Plan Check LE strength, start aerobic conditioning with bike , seated stepper, UBE, general LE/UE strengthening with T- Band and progress education in HEP. Check tandem standing balance and TUG, 30 sec sit to stand, and complete ABC Questionnaire.
--- NOTE | 2018-10-16 10:30 | PT.OTN ---
Current Diagnoses Other symptoms and signs involving cognitive functions and awareness (10/16/18) Other malaise (10/16/18) Physical Therapy Treatment Note PT-OP-A Visit Information Start: 10/10/18 16:34 Freq: Status: Active Protocol: Document 10/16/18 08:54 LR (Rec: 10/16/18 10:30 [facility] [id number]) Out-Patient Physical Therapy Visit Information Visit Information Visit Type Treatment Note Visit Start Time 09:45 Visit Stop Time 10:25 Total Visit Minutes 40 Visit Number 2 Number of BOOTH OPERATOR Visits 0 PT-OP-B Current Condition Start: 10/10/18 16:34 Freq: Status: Active Protocol: Document 10/13/18 09:05 LRN (Rec: 10/13/18 10:02 LRN [id number]) Current Condition History of Current Condition Onset Date 03/2018 Current Complaints Weakness. History of Current Condition Had a terrible bout of diarrhea and became very weak and deconditioned, and now can 't get her energy back. She is stressed and is having difficulty sleeping. Legs feel weak with walking and after standing a few minutes. Lives with daughter. PMH: Pt reports L leg short. 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 L Low back hurts if sits wrong and stands too. Per intake sheet pt has hx of heart attack, joint replacement, thyroid disorder, memory loss. Records review indicates: Osteoporosis, anxiety, cognitive decline. Future Testing and Treatments Planned Testing for possible Alzheimers in [place] Waiting for appointment. 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 exercise class 3x/ week. Prior Functional Status Baseline Function- ADL's Independent Baseline Function- Mobility Independent Baseline Function- Recreation/Hobbies [facility] ex class 3x/week. 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 Functional Limitations- Recreation/ Unable to participate in [facility] ex class. After participating for 4 weeks she was still not able to finish the full class because she became very weak after a few minutes. Functional Limitations- Other Drives cautiously. Personal Factors Other Personal Factors That May Effect Lives with handicapped Therapy/Recovery daughter who tires easily. PT-OP-C Subjective Start: 10/10/18 16:34 Freq: Status: Active Protocol: Document 10/16/18 08:54 [facility] (Rec: 10/16/18 10:30 [facility] [id number]) OP-PT Subjective Patient Comments Patient Comments Reports compliance w/ exercises Patient Questionnaires ABC- Activity Specific Balance Confidence Scale ABC Score 73.13 PT-OP-D Balance Start: 10/10/18 16:34 Freq: Status: Active Protocol: Document 10/16/18 08:54 [facility] (Rec: 10/16/18 10:30 [facility] [id number]) Balance Tests Tandem Tandem Standing 17 sec w/L back; >40 sec w/R back PT-OP-E Functional Tests Start: 10/10/18 16:34 Freq: Status: Active Protocol: Document 10/16/18 08:54 [facility] (Rec: 10/16/18 10:30 [facility] [id number]) Functional Tests 30 Second Sit to Stand Test Score 15 Comments daniel chair Timed Up and Go (TUG) Score 12 sec PT-OP-M Strength Start: 10/10/18 16:34 Freq: Status: Active Protocol: Document 10/16/18 08:54 [facility] (Rec: 10/16/18 10:30 [facility] [id number]) Hip Strength Hip Manual Muscle Testing Right Flexion (L2) 4- Good- Extension (S1) 3- Fair- Abduction 4- Good- External Rotation 4- Good- Internal Rotation 4- Good- Left Flexion (L2) 4- Good- Extension (S1) 3- Fair- Abduction 4- Good- External Rotation 4- Good- Internal Rotation 4- Good- PT-OP-Q Treatments Start: 10/10/18 16:34 Freq: Status: Active Protocol: Document 10/16/18 08:54 [facility] (Rec: 10/16/18 10:30 [facility] [id number]) Cardio Equipment Recumbent Stepper (Sci-Fit) Duration (Minutes) 6 Resistance 1 Seat Position 5 Gym Equipment Shuttle Recovery Bilateral Squats Resistance 50 Shuttle Recovery Platform Stable Reps/Time 30 Therapeutic Exercises Supine Exercises hip abd Supine Exercise Name hip abd Side bilateral Equipment Used lvl 3 Reps/Minutes 10 bridge Supine Exercise Name bridge Reps/Minutes 10 SLR Supine Exercise Name SLR Side bilateral Reps/Minutes 10x2 Sitting Exercises Knee flex Side bilateral Resistance Lev 1 Reps/Minutes 15x1 Comments tied around legs-sent home w/ band Knee ext Side bilateral Resistance lvl 1 Reps/Minutes 10x1 Comments tband around legs Standing Exercises sidestep Standing Exercise Name sidestep Side bilateral Reps/Minutes 20ft Heel Raises Side bilateral Reps/Minutes 20 PT-OP-T Assessment and Plan Start: 10/10/18 16:34 Freq: Status: Active Protocol: Document 10/16/18 08:54 [facility] (Rec: 10/16/18 10:30 [facility] [id number]) Physical Therapy Assessment Goals Endurance Impairment Decreased endurance Batch Blender Goal (LTG) Pt will be able to return to participating in the [facility] exercise class 3x/week. LTG Duration 12/12/18 Strength Impairment Generalized weakness Fdc Goal (LTG) Pt will be able to perform functional activities (laundry duties) without fatigue. LTG Duration 11/13/18 Self care program Impairment Lacks self care program Fdc Goal (LTG) Pt will be independent in self care general strengthening program. LTG Duration 12/12/18 Assessment Summary Assessment Pt fatigues easily with exercises, especially standing . She dec speed with inc time with 30 sec sit to stand exercise. She tended to go fast through exercises with tband in order to use momentum of band to assist and required cueing for slowing down throughout exercises. Physical Therapy Plan Frequency and Duration Frequency of Treatment 2x/Week Duration of Treatment 6-8 weeks Plan of Care Start Date 10/13/18 Plan of Care End Date 12/12/18 Next Visit Focus/Plan Next Note Type Treatment Note Next Visit Plan cont to advance strength and activity tolerance exercises
--- NOTE | 2018-10-21 09:55 | PT.OTN ---
Current Diagnoses Other symptoms and signs involving cognitive functions and awareness (10/21/18) Other malaise (10/21/18) Physical Therapy Treatment Note PT-OP-A Visit Information Start: 10/10/18 16:34 Freq: Status: Active Protocol: Document 10/21/18 09:44 SA (Rec: 10/21/18 09:55 SA [id number]) Out-Patient Physical Therapy Visit Information Visit Information Visit Type Treatment Note Visit Note Treatment cut short d/t patient revealing that she fell last night and is having some pain at R wrist. Upon inspection revealed significant swelling and bruising. Advised pt to see MD . Called primary to make appointment but none available , pt left early to go to walk in clinic where her PCP practices at [facility]. Visit Start Time 09:00 Visit Stop Time 09:25 Total Visit Minutes 25 Visit Number 3 Number of RN NICU Visits 1 PT-OP-B Current Condition Start: 10/10/18 16:34 Freq: Status: Active Protocol: Document 10/13/18 09:05 LRN (Rec: 10/13/18 10:02 LRN [id number]) Current Condition History of Current Condition Onset Date 03/2018 Current Complaints Weakness. History of Current Condition Had a terrible bout of diarrhea and became very weak and deconditioned, and now can 't get her energy back. She is stressed and is having difficulty sleeping. Legs feel weak with walking and after standing a few minutes. Lives with daughter. PMH: Pt reports L leg short. 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 L Low back hurts if sits wrong and stands too. Per intake sheet pt has hx of heart attack, joint replacement, thyroid disorder, memory loss. Records review indicates: Osteoporosis, anxiety, cognitive decline. Future Testing and Treatments Planned Testing for possible Alzheimers in [place] Waiting for appointment. 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 Center exercise class 3x/ week. Prior Functional Status Baseline Function- ADL's Independent Baseline Function- Mobility Independent Baseline Function- Recreation/Hobbies [facility] ex class 3x/week. 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 Functional Limitations- Recreation/ Unable to participate in [facility] ex class. After participating for 4 weeks she was still not able to finish the full class because she became very weak after a few minutes. Functional Limitations- Other Drives cautiously. Personal Factors Other Personal Factors That May Effect Lives with handicapped Therapy/Recovery daughter who tires easily. PT-OP-C Subjective Start: 10/10/18 16:34 Freq: Status: Active Protocol: Document 10/21/18 09:44 SA (Rec: 10/21/18 09:55 SA [id number]) OP-PT Subjective Patient Comments Patient Comments Pt reports she has been doing Sit to stands, SLRs and bridging at home. Reports having a GLF last night and thinks her wrist may be sprained. PT-OP-D Balance Start: 10/10/18 16:34 Freq: Status: Active Protocol: Document 10/16/18 08:54 LR (Rec: 10/16/18 10:30 [facility] [id number]) Balance Tests Tandem Tandem Standing 17 sec w/L back; >40 sec w/R back PT-OP-E Functional Tests Start: 10/10/18 16:34 Freq: Status: Active Protocol: Document 10/16/18 08:54 [facility] (Rec: 10/16/18 10:30 [facility] [id number]) Functional Tests 30 Second Sit to Stand Test Score 15 Comments daniel chair Timed Up and Go (TUG) Score 12 sec PT-OP-M Strength Start: 10/10/18 16:34 Freq: Status: Active Protocol: Document 10/16/18 08:54 [facility] (Rec: 10/16/18 10:30 [facility] [id number]) Hip Strength Hip Manual Muscle Testing Right Flexion (L2) 4- Good- Extension (S1) 3- Fair- Abduction 4- Good- External Rotation 4- Good- Internal Rotation 4- Good- Left Flexion (L2) 4- Good- Extension (S1) 3- Fair- Abduction 4- Good- External Rotation 4- Good- Internal Rotation 4- Good- PT-OP-Q Treatments Start: 10/10/18 16:34 Freq: Status: Active Protocol: Document 10/21/18 09:44 SA (Rec: 10/21/18 09:55 SA [id number]) Cardio Equipment Recumbent Stepper (Sci-Fit) Duration (Minutes) 6 Resistance 1 Seat Position 5 Therapeutic Exercises Sitting Exercises Sit to stand Reps/Minutes 10x Knee flex Side bilateral Resistance Lev 1 Reps/Minutes 15x1 Comments tied around legs-sent home w/ band Knee ext Side bilateral Resistance lvl 1 Reps/Minutes 15 x 1 Comments tband around legs Standing Exercises Heel Raises Side bilateral Reps/Minutes 20 PT-OP-T Assessment and Plan Start: 10/10/18 16:34 Freq: Status: Active Protocol: Document 10/21/18 09:44 SA (Rec: 10/21/18 09:55 SA [id number]) Physical Therapy Assessment Assessment Summary Assessment Pt presents in clinic slightly confused but unsure if this is baseline for patient. Fatigues rapidly with Sci fit and does not use RUE. Reports possible wrist injury from fall last night. Pt left early to go to walk in clinic and have wrist looked at. Physical Therapy Plan Next Visit Focus/Plan Next Note Type Treatment Note Next Visit Plan cont to advance strength and activity tolerance exercises
--- NOTE | 2018-11-06 13:19 | PT.OTN ---
Current Diagnoses Other symptoms and signs involving cognitive functions and awareness (11/06/18) Other malaise (11/06/18) Physical Therapy Treatment Note PT-OP-A Visit Information Start: 10/10/18 16:34 Freq: Status: Active Protocol: Document 11/06/18 11:19 LRN (Rec: 11/06/18 12:02 LRN [id number]) Out-Patient Physical Therapy Visit Information Visit Information Visit Type Treatment Note Visit Note Treatment cut short d/t patient revealing that she fell last night and is having some pain at R wrist. Upon inspection revealed significant swelling and bruising. Advised pt to see MD . Called primary to make appointment but none available , pt left early to go to walk in clinic where her PCP practices at [facility]. Visit Start Time 11:19 Visit Stop Time 11:57 Total Visit Minutes 38 Visit Number 4 Number of STAFF PSYCHOLOGIST Visits 0 Evaluation Information Evaluation Date 10/13/18 PT-OP-B Current Condition Start: 10/10/18 16:34 Freq: Status: Active Protocol: Document 10/13/18 09:05 LRN (Rec: 10/13/18 10:02 LRN [id number]) Current Condition History of Current Condition Onset Date 03/2018 Current Complaints Weakness. History of Current Condition Had a terrible bout of diarrhea and became very weak and deconditioned, and now can 't get her energy back. She is stressed and is having difficulty sleeping. Legs feel weak with walking and after standing a few minutes. Lives with daughter. PMH: Pt reports L leg short. 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 L Low back hurts if sits wrong and stands too. Per intake sheet pt has hx of heart attack, joint replacement, thyroid disorder, memory loss. Records review indicates: Osteoporosis, anxiety, cognitive decline. Future Testing and Treatments Planned Testing for possible Alzheimers in [place] Waiting for appointment. 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 exercise class 3x/ week. Prior Functional Status Baseline Function- ADL's Independent Baseline Function- Mobility Independent Baseline Function- Recreation/Hobbies [facility] ex class 3x/week. 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 Functional Limitations- Recreation/ Unable to participate in [employer] ex class. After participating for 4 weeks she was still not able to finish the full class because she became very weak after a few minutes. Functional Limitations- Other Drives cautiously. Personal Factors Other Personal Factors That May Effect Lives with handicapped Therapy/Recovery daughter who tires easily. PT-OP-C Subjective Start: 10/10/18 16:34 Freq: Status: Active Protocol: Document 11/06/18 11:19 LRN (Rec: 11/06/18 12:02 LRN [id number]) OP-PT Subjective Patient Comments Patient Comments States her wrist is only sprained per X-rays, no fractures. PT-OP-D Balance Start: 10/10/18 16:34 Freq: Status: Active Protocol: Document 10/16/18 08:54 LR (Rec: 10/16/18 10:30 [facility] [id number]) Balance Tests Tandem Tandem Standing 17 sec w/L back; >40 sec w/R back PT-OP-E Functional Tests Start: 10/10/18 16:34 Freq: Status: Active Protocol: Document 10/16/18 08:54 LR (Rec: 10/16/18 10:30 [facility] [id number]) Functional Tests 30 Second Sit to Stand Test Score 15 Comments daniel chair Timed Up and Go (TUG) Score 12 sec PT-OP-M Strength Start: 10/10/18 16:34 Freq: Status: Active Protocol: Document 10/16/18 08:54 [facility] (Rec: 10/16/18 10:30 [facility] [id number]) Hip Strength Hip Manual Muscle Testing Right Flexion (L2) 4- Good- Extension (S1) 3- Fair- Abduction 4- Good- External Rotation 4- Good- Internal Rotation 4- Good- Left Flexion (L2) 4- Good- Extension (S1) 3- Fair- Abduction 4- Good- External Rotation 4- Good- Internal Rotation 4- Good- PT-OP-Q Treatments Start: 10/10/18 16:34 Freq: Status: Active Protocol: Document 11/06/18 11:19 LRN (Rec: 11/06/18 12:02 LR [id number]) Cardio Equipment Recumbent Elliptical ([employer]s) Duration (Minutes) 7 Resistance 2 Seat Position 4 Therapeutic Exercises Sitting Exercises Sit to stand Reps/Minutes 15x Knee flex Side bilateral Resistance Lev 1 Reps/Minutes 15x1 Comments tied around legs-sent home w/ band, Lev 1 Knee ext Side bilateral Resistance lvl 1 Reps/Minutes 15 x 1 Comments tband around legs Standing Exercises 30 sec sit to stand Standing Exercise Name Sit to Stand for time Comments 14x Neuro Re-Education Treatment Balance Activities TUG Details TUG Surface Level Reps/Duration x2 Comments 11 sec's Tandem standing Surface Level Comments R foot in back Self-Care/Home Management Treatment Education Patient Education Home Exercise Program Activities Self-Care/Home Management Activities Issued and reviewed written HEP: T-Band knee flex/ext strengthening with Blue T-Band issued. PT-OP-T Assessment and Plan Start: 10/10/18 16:34 Freq: Status: Active Protocol: Document 11/06/18 11:19 LRN (Rec: 11/06/18 12:02 LRN [id number]) Physical Therapy Assessment Goals Endurance Impairment Decreased endurance Braid Pattern Setter Goal (LTG) Pt will be able to [facility] to [facility]. LTG Duration 12/12/18 Strength Impairment Generalized weakness Usp Goal (LTG) Pt will be able to perform functional activities (laundry duties) without fatigue. LTG Duration 11/13/18 Self care program Impairment Lacks self care program Usp Goal (LTG) Pt will be independent in self care general strengthening program. LTG Duration 12/12/18 Progress Towards Goals Progress Comments Delayed progression due to recent fall and injury to R wrist. Assessment Summary Assessment Pt fatigued with LE ex needing sit rests or with Biodex needed use of hands to assist LE's after 4'. Training needed for LE T-Band ex's. 30 sec sit to stand test and TUG is normal for her age group. TUG overall at 11 sec's is 1<20% impaired. Fatigue is primary area of dysfunction. Physical Therapy Plan Frequency and Duration Frequency of Treatment 2x/Week Duration of Treatment 6-8 weeks Plan of Care Start Date 10/13/18 Plan of Care End Date 12/12/18 Next Visit Focus/Plan Next Note Type Treatment Note Next Visit Plan Advance strength and activity tolerance exercises. Try UBE and add general UE ex. Add balance ex (tandem, SLS).
--- NOTE | 2018-11-11 10:57 | PT.OTN ---
Current Diagnoses Other symptoms and signs involving cognitive functions and awareness (11/11/18) Other malaise (11/11/18) Physical Therapy Treatment Note PT-OP-A Visit Information Start: 10/10/18 16:34 Freq: Status: Active Protocol: Document 11/11/18 10:51 SA (Rec: 11/11/18 10:57 SA [email or web address]) Out-Patient Physical Therapy Visit Information Visit Information Visit Type Treatment Note Visit Start Time 08:15 Visit Stop Time 09:00 Total Visit Minutes 45 Visit Number 5 Number of SPECIAL EDUCATION PARAPROFESSIONAL Visits 1 PT-OP-B Current Condition Start: 10/10/18 16:34 Freq: Status: Active Protocol: Document 10/13/18 09:05 LRN (Rec: 10/13/18 10:02 LRN [id number]) Current Condition History of Current Condition Onset Date 03/2018 Current Complaints Weakness. History of Current Condition Had a terrible bout of diarrhea and became very weak and deconditioned, and now can 't get her energy back. She is stressed and is having difficulty sleeping. Legs feel weak with walking and after standing a few minutes. Lives with daughter. PMH: Pt reports L leg short. 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 L Low back hurts if sits wrong and stands too. Per intake sheet pt has hx of heart attack, joint replacement, thyroid disorder, memory loss. Records review indicates: Osteoporosis, anxiety, cognitive decline. Future Testing and Treatments Planned Testing for possible Alzheimers in [place] Waiting for appointment. 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 exercise class 3x/ week. Prior Functional Status Baseline Function- ADL's Independent Baseline Function- Mobility Independent Baseline Function- Recreation/Hobbies [facility] ex class 3x/week. 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 Functional Limitations- Recreation/ Unable to participate in [facility] ex class. After participating for 4 weeks she was still not able to finish the full class because she became very weak after a few minutes. Functional Limitations- Other Drives cautiously. Personal Factors Other Personal Factors That May Effect Lives with handicapped Therapy/Recovery daughter who tires easily. PT-OP-C Subjective Start: 10/10/18 16:34 Freq: Status: Active Protocol: Document 11/11/18 10:51 SA (Rec: 11/11/18 10:57 SA [id number]) OP-PT Subjective Patient Comments Patient Comments Pt states wrist is feeling better and she is ready to work out today. PT-OP-D Balance Start: 10/10/18 16:34 Freq: Status: Active Protocol: Document 10/16/18 08:54 [facility] (Rec: 10/16/18 10:30 [facility] [id number]) Balance Tests Tandem Tandem Standing 17 sec w/L back; >40 sec w/R back PT-OP-E Functional Tests Start: 10/10/18 16:34 Freq: Status: Active Protocol: Document 10/16/18 08:54 [facility] (Rec: 10/16/18 10:30 [facility] [id number]) Functional Tests 30 Second Sit to Stand Test Score 15 Comments daniel chair Timed Up and Go (TUG) Score 12 sec PT-OP-M Strength Start: 10/10/18 16:34 Freq: Status: Active Protocol: Document 10/16/18 08:54 [facility] (Rec: 10/16/18 10:30 [facility] [id number]) Hip Strength Hip Manual Muscle Testing Right Flexion (L2) 4- Good- Extension (S1) 3- Fair- Abduction 4- Good- External Rotation 4- Good- Internal Rotation 4- Good- Left Flexion (L2) 4- Good- Extension (S1) 3- Fair- Abduction 4- Good- External Rotation 4- Good- Internal Rotation 4- Good- PT-OP-Q Treatments Start: 10/10/18 16:34 Freq: Status: Active Protocol: Document 11/11/18 10:51 SA (Rec: 11/11/18 10:57 SA [email or web address]) Cardio Equipment Recumbent Stepper (Sci-Fit) Duration (Minutes) 6 Resistance 2 Seat Position 5 Other one rest break Therapeutic Exercises Supine Exercises hip abd Supine Exercise Name hip abd Side bilateral Equipment Used lvl 3 Reps/Minutes 15 bridge Supine Exercise Name bridge Reps/Minutes 15 SLR Side bilateral Reps/Minutes 10 x 2 Sitting Exercises Sit to stand Reps/Minutes 15x Knee flex Side bilateral Resistance Lev 1 Reps/Minutes 15x1 Comments tied around legs-sent home w/ band, Lev 1 Knee ext Side bilateral Resistance lvl 1 Reps/Minutes 15 x 1 Comments tband around legs Standing Exercises sidestep Standing Exercise Name sidestep Side bilateral Reps/Minutes 4 lengths of bar Comments yellow TB Neuro Re-Education Treatment Balance Activities Tilt board Surface even Equipment tilt board Reps/Duration 2 min each Comments lateral and ant/post Slow march Surface level Reps/Duration focus on SLS Comments controlled movement Tandem standing Surface Level Comments R foot in back PT-OP-T Assessment and Plan Start: 10/10/18 16:34 Freq: Status: Active Protocol: Document 11/11/18 10:51 SA (Rec: 11/11/18 10:57 SA [email or web address]) Physical Therapy Assessment Assessment Summary Assessment Improved tolerance of exercise and balance activities today. Pt to continue with HEP, still fatigues rapidly. Physical Therapy Plan Next Visit Focus/Plan Next Note Type Treatment Note Next Visit Plan Advance strength and activity tolerance exercises. Try UBE and add general UE ex. Add balance ex (tandem, SLS).
--- NOTE | 2018-11-14 12:14 | PT.OTN ---
Current Diagnoses Other symptoms and signs involving cognitive functions and awareness (11/14/18) Other malaise (11/14/18) Physical Therapy Treatment Note PT-OP-A Visit Information Start: 10/10/18 16:34 Freq: Status: Active Protocol: Document 11/14/18 11:15 LRN (Rec: 11/14/18 12:08 LRN [id number]) Out-Patient Physical Therapy Visit Information Visit Information Visit Type Treatment Note Visit Start Time 11:15 Visit Stop Time 11:59 Total Visit Minutes 44 Visit Number 6 Number of LOGISTICS PLANNER Visits 0 Evaluation Information Evaluation Date 10/13/18 PT-OP-B Current Condition Start: 10/10/18 16:34 Freq: Status: Active Protocol: Document 10/13/18 09:05 LRN (Rec: 10/13/18 10:02 LRN [id number]) Current Condition History of Current Condition Onset Date 03/2018 Current Complaints Weakness. History of Current Condition Had a terrible bout of diarrhea and became very weak and deconditioned, and now can 't get her energy back. She is stressed and is having difficulty sleeping. Legs feel weak with walking and after standing a few minutes. Lives with daughter. PMH: Pt reports L leg short. 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 L Low back hurts if sits wrong and stands too. Per intake sheet pt has hx of heart attack, joint replacement, thyroid disorder, memory loss. Records review indicates: Osteoporosis, anxiety, cognitive decline. Future Testing and Treatments Planned Testing for possible Alzheimers in [place] Waiting for appointment. 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 exercise class 3x/ week. Prior Functional Status Baseline Function- ADL's Independent Baseline Function- Mobility Independent Baseline Function- Recreation/Hobbies [facility] ex class 3x/week. 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 Functional Limitations- Recreation/ Unable to participate in [facility] ex class. After participating for 4 weeks she was still not able to finish the full class because she became very weak after a few minutes. Functional Limitations- Other Drives cautiously. Personal Factors Other Personal Factors That May Effect Lives with handicapped Therapy/Recovery daughter who tires easily. PT-OP-C Subjective Start: 10/10/18 16:34 Freq: Status: Active Protocol: Document 11/14/18 11:15 LRN (Rec: 11/14/18 12:08 LRN [id number]) OP-PT Subjective Patient Comments Patient Comments Didn't sleep well last night; therefore weaker. PT-OP-D Balance Start: 10/10/18 16:34 Freq: Status: Active Protocol: Document 10/16/18 08:54 [facility] (Rec: 10/16/18 10:30 [facility] [id number]) Balance Tests Tandem Tandem Standing 17 sec w/L back; >40 sec w/R back PT-OP-E Functional Tests Start: 10/10/18 16:34 Freq: Status: Active Protocol: Document 10/16/18 08:54 [facility] (Rec: 10/16/18 10:30 [facility] [id number]) Functional Tests 30 Second Sit to Stand Test Score 15 Comments daniel chair Timed Up and Go (TUG) Score 12 sec PT-OP-M Strength Start: 10/10/18 16:34 Freq: Status: Active Protocol: Document 10/16/18 08:54 LR (Rec: 10/16/18 10:30 [facility] [id number]) Hip Strength Hip Manual Muscle Testing Right Flexion (L2) 4- Good- Extension (S1) 3- Fair- Abduction 4- Good- External Rotation 4- Good- Internal Rotation 4- Good- Left Flexion (L2) 4- Good- Extension (S1) 3- Fair- Abduction 4- Good- External Rotation 4- Good- Internal Rotation 4- Good- PT-OP-Q Treatments Start: 10/10/18 16:34 Freq: Status: Active Protocol: Document 11/14/18 11:15 LRN (Rec: 11/14/18 12:08 LRN [id number]) Cardio Equipment Upper Body Ergometer (UBE) Duration (Minutes) 4 RPM 80 Seat Position 10 Height 2.5 Recumbent Elliptical (Biodex) Duration (Minutes) 7 Resistance 2 Seat Position 0 Other No rest but slowed speed after 5' Therapeutic Exercises Supine Exercises bridge Supine Exercise Name bridge Reps/Minutes 15 SLR Side bilateral Reps/Minutes 30x Sitting Exercises Knee flex Side bilateral Resistance Lev 1 Reps/Minutes 20x Comments tied around legs-sent home w/ band, Lev 1 Knee ext Side bilateral Resistance lvl 1 Reps/Minutes 20 x 1 Comments tband around legs Standing Exercises Hip Flex Standing Exercise Name Balance: November lifts and holds Side bilateral Comments Hold 5 & 10 sec Hip AB Standing Exercise Name Balance: Lifts and holds Side bilateral Comments Hold 5 sec, not able to hold 10. SLS L>R 30 sec sit to stand Standing Exercise Name Sit to Stand Comments 15x sidestep Standing Exercise Name sidestep Side bilateral Reps/Minutes 4 lengths of bar Comments yellow TB Neuro Re-Education Treatment Balance Activities Slow march Surface level Reps/Duration focus on SLS Comments controlled movement PT-OP-T Assessment and Plan Start: 10/10/18 16:34 Freq: Status: Active Protocol: Document 11/14/18 11:15 LRN (Rec: 11/14/18 12:08 LRN [id number]) Physical Therapy Assessment Goals Endurance Impairment Decreased endurance Alf Goal (LTG) Pt will be able to [facility] to [facility]. LTG Duration 12/12/18 Strength Impairment Generalized weakness Director Of Cath Lab Goal (LTG) Pt will be able to perform functional activities (laundry duties) without fatigue. LTG Duration 11/13/18 Self care program Impairment Lacks self care program Alf Goal (LTG) Pt will be independent in self care general strengthening program. LTG Duration 12/12/18 Progress Towards Goals Progress Comments Endurance Goal: Progressing. Strength Goal: Progressed UE with UBE ex. Self Care Goal: HEP not progressed today. Assessment Summary Assessment Pt lacks motivation and needs encouragement. Endurance and balance tolerance progressing. Pt's balance worsens with fatigue. Fair tolerance to UE ex due to complaints of fatigue. Physical Therapy Plan Frequency and Duration Frequency of Treatment 2x/Week Duration of Treatment 6-8 weeks Plan of Care Start Date 10/13/18 Plan of Care End Date 12/12/18 Next Visit Focus/Plan Next Note Type Treatment Note Next Visit Plan Advance strength and activity tolerance exercises. Add general UE strengthening. Progress balance as tolerated.
--- NOTE | 2018-11-18 11:59 | PT.OTN ---
Current Diagnoses Other symptoms and signs involving cognitive functions and awareness (11/18/18) Other malaise (11/18/18) Physical Therapy Treatment Note PT-OP-A Visit Information Start: 10/10/18 16:34 Freq: Status: Active Protocol: Document 11/18/18 11:46 SA (Rec: 11/18/18 11:59 SA [email or web address]) Out-Patient Physical Therapy Visit Information Visit Information Visit Type Treatment Note Visit Start Time 10:30 Visit Stop Time 11:15 Total Visit Minutes 45 Visit Number 7 Number of FORESTER SILVICULTURE Visits 1 PT-OP-B Current Condition Start: 10/10/18 16:34 Freq: Status: Active Protocol: Document 10/13/18 09:05 LRN (Rec: 10/13/18 10:02 LRN [id number]) Current Condition History of Current Condition Onset Date 03/2018 Current Complaints Weakness. History of Current Condition Had a terrible bout of diarrhea and became very weak and deconditioned, and now can 't get her energy back. She is stressed and is having difficulty sleeping. Legs feel weak with walking and after standing a few minutes. Lives with daughter. PMH: Pt reports L leg short. 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 L Low back hurts if sits wrong and stands too. Per intake sheet pt has hx of heart attack, joint replacement, thyroid disorder, memory loss. Records review indicates: Osteoporosis, anxiety, cognitive decline. Future Testing and Treatments Planned Testing for possible Alzheimers in [place] Waiting for appointment. 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 exercise class 3x/ week. Prior Functional Status Baseline Function- ADL's Independent Baseline Function- Mobility Independent Baseline Function- Recreation/Hobbies [facility] ex class 3x/week. 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 Functional Limitations- Recreation/ Unable to participate in [facility] ex class. After participating for 4 weeks she was still not able to finish the full class because she became very weak after a few minutes. Functional Limitations- Other Drives cautiously. Personal Factors Other Personal Factors That May Effect Lives with handicapped Therapy/Recovery daughter who tires easily. PT-OP-C Subjective Start: 10/10/18 16:34 Freq: Status: Active Protocol: Document 11/18/18 11:46 SA (Rec: 11/18/18 11:59 SA [email or web address]) OP-PT Subjective Patient Comments Patient Comments Pt reports feeling weak today but did sleep well. Feels a little stronger overall and notes feeling fatigued on PT days from exercise. PT-OP-D Balance Start: 10/10/18 16:34 Freq: Status: Active Protocol: Document 10/16/18 08:54 LR (Rec: 10/16/18 10:30 [facility] [id number]) Balance Tests Tandem Tandem Standing 17 sec w/L back; >40 sec w/R back PT-OP-E Functional Tests Start: 10/10/18 16:34 Freq: Status: Active Protocol: Document 10/16/18 08:54 [facility] (Rec: 10/16/18 10:30 [facility] [id number]) Functional Tests 30 Second Sit to Stand Test Score 15 Comments daniel chair Timed Up and Go (TUG) Score 12 sec PT-OP-M Strength Start: 10/10/18 16:34 Freq: Status: Active Protocol: Document 10/16/18 08:54 [facility] (Rec: 10/16/18 10:30 [facility] [id number]) Hip Strength Hip Manual Muscle Testing Right Flexion (L2) 4- Good- Extension (S1) 3- Fair- Abduction 4- Good- External Rotation 4- Good- Internal Rotation 4- Good- Left Flexion (L2) 4- Good- Extension (S1) 3- Fair- Abduction 4- Good- External Rotation 4- Good- Internal Rotation 4- Good- PT-OP-Q Treatments Start: 10/10/18 16:34 Freq: Status: Active Protocol: Document 11/18/18 11:46 SA (Rec: 11/18/18 11:59 SA [email or web address]) Cardio Equipment Upper Body Ergometer (UBE) Duration (Minutes) 5 RPM 70 Seat Position 10 Height 2.5 Other no rest break Recumbent Elliptical (Biodex) Duration (Minutes) 6 Resistance 2 Seat Position 0 Other No rest break Therapeutic Exercises Sitting Exercises Knee flex Side bilateral Resistance Lev 1 Reps/Minutes 20x Comments tied around legs-sent home w/ band, Lev 1 Knee ext Side bilateral Resistance lvl 1 Reps/Minutes 20 x 1 Comments tband around legs Standing Exercises Standing hip EXTs Side bilateral Resistance Yellow TB Reps/Minutes 12x each Comments at bar, cues for posture Hip Flex Standing Exercise Name Balance: March lifts and holds Side bilateral Comments Hold 5 & 10 sec Hip AB Standing Exercise Name Balance: Lifts and holds Side bilateral Equipment Used YEllow TB Comments 5 hold 30 sec sit to stand Standing Exercise Name Sit to Stand Comments 15x sidestep Standing Exercise Name sidestep Side bilateral Reps/Minutes 4 lengths of bar Comments yellow TB Neuro Re-Education Treatment Balance Activities Jami step overs Reps/Duration 4 lengths of bar Comments Cues for increasing step elevation. Tilt board Surface even Equipment tilt board Reps/Duration 2 min each Comments lateral and ant/post Slow march Surface level Reps/Duration focus on SLS Comments controlled movement Tandem standing Surface Level Reps/Duration 20 alternating PT-OP-T Assessment and Plan Start: 10/10/18 16:34 Freq: Status: Active Protocol: Document 11/18/18 11:46 SA (Rec: 11/18/18 11:59 SA [email or web address]) Physical Therapy Assessment Assessment Summary Assessment Pt tolerating gradual progression of strengthening and balance activities, somewhat inconsistent with HEP . Making gradual strength and balance gains. Physical Therapy Plan Next Visit Focus/Plan Next Note Type Treatment Note Next Visit Plan Continue to progress strengthening and balance program, encourage consistency with HEP and participation in exercise classes.
--- NOTE | 2018-11-21 15:05 | PT.OTN ---
Current Diagnoses Other symptoms and signs involving cognitive functions and awareness (11/21/18) Other malaise (11/21/18) Physical Therapy Treatment Note PT-OP-A Visit Information Start: 10/10/18 16:34 Freq: Status: Active Protocol: Document 11/21/18 12:47 LRN (Rec: 11/21/18 13:37 LRN [id number]) Out-Patient Physical Therapy Visit Information Visit Information Visit Type Treatment Note Visit Start Time 12:47 Visit Stop Time 13:36 Total Visit Minutes 49 Visit Number 8 Number of FLUE GAS ANALYST Visits 0 Evaluation Information Evaluation Date 10/13/18 PT-OP-B Current Condition Start: 10/10/18 16:34 Freq: Status: Active Protocol: Document 10/13/18 09:05 LRN (Rec: 10/13/18 10:02 LRN [id number]) Current Condition History of Current Condition Onset Date 03/2018 Current Complaints Weakness. History of Current Condition Had a terrible bout of diarrhea and became very weak and deconditioned, and now can 't get her energy back. She is stressed and is having difficulty sleeping. Legs feel weak with walking and after standing a few minutes. Lives with daughter. PMH: Pt reports L leg short. 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 L Low back hurts if sits wrong and stands too. Per intake sheet pt has hx of heart attack, joint replacement, thyroid disorder, memory loss. Records review indicates: Osteoporosis, anxiety, cognitive decline. Future Testing and Treatments Planned Testing for possible Alzheimers in [place] Waiting for appointment. 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 exercise class 3x/ week. Prior Functional Status Baseline Function- ADL's Independent Baseline Function- Mobility Independent Baseline Function- Recreation/Hobbies [facility] ex class 3x/week. 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 Functional Limitations- Recreation/ Unable to participate in [facility] ex class. After participating for 4 weeks she was still not able to finish the full class because she became very weak after a few minutes. Functional Limitations- Other Drives cautiously. Personal Factors Other Personal Factors That May Effect Lives with handicapped Therapy/Recovery daughter who tires easily. PT-OP-C Subjective Start: 10/10/18 16:34 Freq: Status: Active Protocol: Document 11/21/18 12:47 LRN (Rec: 11/21/18 13:37 LR [id number]) OP-PT Subjective Patient Comments Patient Comments Planning on going back to ex class when done with PT, but willing to try returning to the ex class now. States she will go Mon (3 days). Patient Questionnaires Dizziness Handicap Inventory DHI Functional Impairment 80 to 99% Impaired (Score 80- 99) PT-OP-D Balance Start: 10/10/18 16:34 Freq: Status: Active Protocol: Document 11/21/18 12:47 LRN (Rec: 11/21/18 15:05 LRN [id number]) Balance Tests Chou Balance Test Chou Balance Test Score 50 Chou Impairment Rating 1 to 19% Impaired (Score 45-55 ) Chou Balance Assessment Evaluation Sitting to Standing Ability Independent w/out Hands Unsupported Stance Safely- 2 minutes Sitting Unsupported, Feet on Floor Safely- 2 minutes Standing to Sitting Ability Safely, Minimal Hand Use Transfer Ability Safely, Minimal Hand Use Unsupported Stance- Eyes Closed Safely, 10 seconds Unsupported Stance- Eyes Open Independent, 1 minute Reaching Forward Standing Safely, 5 inches Pick- Up Object From Floor Independent/Safe Look Behind Shoulder - Standing Shifts Weight Well Turning 360 Degrees Turns Bilateral, < 4 secs Unsupported Stance, Alternating Feet on (I)- 8 Steps in 20 secs Stair Unsupported Tandem Stance Balance Lost- Step/Stand Unilateral Leg Stance Lifts Leg/Holds 5-10 secs Total Score Chou Total Score (out of 56 points) 50 Chou Impairment Rating 1 to 19% Impaired (Score 45-55 ) PT-OP-E Functional Tests Start: 10/10/18 16:34 Freq: Status: Active Protocol: Document 10/16/18 08:54 [facility] (Rec: 10/16/18 10:30 [facility] [id number]) Functional Tests 30 Second Sit to Stand Test Score 15 Comments daniel chair Timed Up and Go (TUG) Score 12 sec PT-OP-M Strength Start: 10/10/18 16:34 Freq: Status: Active Protocol: Document 10/16/18 08:54 [facility] (Rec: 10/16/18 10:30 [facility] [id number]) Hip Strength Hip Manual Muscle Testing Right Flexion (L2) 4- Good- Extension (S1) 3- Fair- Abduction 4- Good- External Rotation 4- Good- Internal Rotation 4- Good- Left Flexion (L2) 4- Good- Extension (S1) 3- Fair- Abduction 4- Good- External Rotation 4- Good- Internal Rotation 4- Good- PT-OP-Q Treatments Start: 10/10/18 16:34 Freq: Status: Active Protocol: Document 11/21/18 12:47 LRN (Rec: 11/21/18 13:37 LR [id number]) Cardio Equipment Upper Body Ergometer (UBE) Duration (Minutes) 6 RPM 80 Seat Position 9 Height 2.5 Other fwd/bkwd Recumbent Elliptical (Biodex) Duration (Minutes) 7 Resistance 2 Seat Position 0 Other No rest break Therapeutic Exercises Sitting Exercises Sit to stand Reps/Minutes 13x, 15x Comments 13x in 30 sec's Standing Exercises Hip Flex Standing Exercise Name Balance: March lifts and holds Side bilateral Resistance L 1 T-Band above the knees Comments Hold 5 & 10 sec Hip AB Standing Exercise Name Balance: Lifts and holds Side bilateral Comments 5 & 10 holds sidestep Standing Exercise Name sidestep Side bilateral Reps/Minutes 4 lengths of bar Comments yellow TB Neuro Re-Education Treatment Balance Activities Slow march Surface level Reps/Duration focus on SLS Comments controlled movement Tandem standing Details Holding at least 1 minute Surface Level Comments Pt needed assist when left leg was behind. PT-OP-T Assessment and Plan Start: 10/10/18 16:34 Freq: Status: Active Protocol: Document 11/21/18 12:47 LRN (Rec: 11/21/18 13:37 [facility] [id number]) Physical Therapy Assessment Goals Endurance Impairment Decreased endurance Certified Surgical Technologist Goal (LTG) Pt will be able to return to participating [facility] the [facility]week. LTG Duration 12/12/18 Strength Impairment Generalized weakness Certified Surgical Technologist Goal (LTG) Pt will be able to perform functional activities (laundry duties) without fatigue. LTG Duration 11/13/18 Self care program Impairment Lacks self care program [facility] Goal (LTG) Pt will be independent in self care general strengthening program. LTG Duration 12/12/18 Progress Towards Goals Progress Comments Endurance Goal: Slowly Progressing. Pt ready to try the ex class in 3 days. Strength Goal: Progressed UE with UBE ex. Self Care Goal: HEP not progressed today. Assessment Summary Assessment Pt has fair tolerance to ex. She often asks how much longer with exercise. Pt is somewhat inconsistent with HEP . Pt appears confident that she will be able to return to her goal of participating in the [facility] ex program program. Pt appears weak and somewhat frail. Physical Therapy Plan Frequency and Duration Frequency of Treatment 2x/Week Duration of Treatment 6-8 weeks Plan of Care Start Date 10/13/18 Plan of Care End Date 12/12/18 Next Visit Focus/Plan Next Note Type Treatment Note Next Visit Plan Check pt's tolerance to return to ex program at [facility] Center and tolerance to functional activities (laundry). Add UE strengthening ex's to her HEP. Continue to progress strengthening and balance program as tolerated, encourage consistency with HEP . Progress note in 1-2 visits.
--- NOTE | 2018-11-28 14:58 | PT.OTN ---
Current Diagnoses Other symptoms and signs involving cognitive functions and awareness (11/28/18) Other malaise (11/28/18) Physical Therapy Treatment Note PT-OP-A Visit Information Start: 10/10/18 16:34 Freq: Status: Active Protocol: Document 11/28/18 14:50 SA (Rec: 11/28/18 14:58 SA [id number]) Out-Patient Physical Therapy Visit Information Visit Information Visit Type Treatment Note Visit Start Time 12:15 Visit Stop Time 13:01 Total Visit Minutes 46 Visit Number 89 Number of TEST BORING CREW CHIEF Visits 1 PT-OP-B Current Condition Start: 10/10/18 16:34 Freq: Status: Active Protocol: Document 10/13/18 09:05 LRN (Rec: 10/13/18 10:02 LRN [id number]) Current Condition History of Current Condition Onset Date 03/2018 Current Complaints Weakness. History of Current Condition Had a terrible bout of diarrhea and became very weak and deconditioned, and now can 't get her energy back. She is stressed and is having difficulty sleeping. Legs feel weak with walking and after standing a few minutes. Lives with daughter. PMH: Pt reports L leg short. 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 L Low back hurts if sits wrong and stands too. Per intake sheet pt has hx of heart attack, joint replacement, thyroid disorder, memory loss. Records review indicates: Osteoporosis, anxiety, cognitive decline. Future Testing and Treatments Planned Testing for possible Alzheimers in [place] Waiting for appointment. 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 exercise class 3x/ week. Prior Functional Status Baseline Function- ADL's Independent Baseline Function- Mobility Independent Baseline Function- Recreation/Hobbies [facility] ex class 3x/week. 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 Functional Limitations- Recreation/ Unable to participate in [facility] ex class. After participating for 4 weeks she was still not able to finish the full class because she became very weak after a few minutes. Functional Limitations- Other Drives cautiously. Personal Factors Other Personal Factors That May Effect Lives with handicapped Therapy/Recovery daughter who tires easily. PT-OP-C Subjective Start: 10/10/18 16:34 Freq: Status: Active Protocol: Document 11/28/18 14:50 SA (Rec: 11/28/18 14:58 SA [id number]) OP-PT Subjective Patient Comments Patient Comments PT did not try exercise class stating she had a busy week. Will try next week, doing exercises at home but inconsistently. PT-OP-D Balance Start: 10/10/18 16:34 Freq: Status: Active Protocol: Document 11/21/18 12:47 LRN (Rec: 11/21/18 15:05 LRN [id number]) Balance Tests Chou Balance Test Chou Balance Test Score 50 Chou Impairment Rating 1 to 19% Impaired (Score 45-55 ) Chou Balance Assessment Evaluation Sitting to Standing Ability Independent w/out Hands Unsupported Stance Safely- 2 minutes Sitting Unsupported, Feet on Floor Safely- 2 minutes Standing to Sitting Ability Safely, Minimal Hand Use Transfer Ability Safely, Minimal Hand Use Unsupported Stance- Eyes Closed Safely, 10 seconds Unsupported Stance- Eyes Open Independent, 1 minute Reaching Forward Standing Safely, 5 inches Pick- Up Object From Floor Independent/Safe Look Behind Shoulder - Standing Shifts Weight Well Turning 360 Degrees Turns Bilateral, < 4 secs Unsupported Stance, Alternating Feet on (I)- 8 Steps in 20 secs Stair Unsupported Tandem Stance Balance Lost- Step/Stand Unilateral Leg Stance Lifts Leg/Holds 5-10 secs Total Score Chou Total Score (out of 56 points) 50 Chou Impairment Rating 1 to 19% Impaired (Score 45-55 ) PT-OP-E Functional Tests Start: 10/10/18 16:34 Freq: Status: Active Protocol: Document 10/16/18 08:54 [facility] (Rec: 10/16/18 10:30 [facility] [id number]) Functional Tests 30 Second Sit to Stand Test Score 15 Comments daniel chair Timed Up and Go (TUG) Score 12 sec PT-OP-M Strength Start: 10/10/18 16:34 Freq: Status: Active Protocol: Document 10/16/18 08:54 [facility] (Rec: 10/16/18 10:30 [facility] [id number]) Hip Strength Hip Manual Muscle Testing Right Flexion (L2) 4- Good- Extension (S1) 3- Fair- Abduction 4- Good- External Rotation 4- Good- Internal Rotation 4- Good- Left Flexion (L2) 4- Good- Extension (S1) 3- Fair- Abduction 4- Good- External Rotation 4- Good- Internal Rotation 4- Good- PT-OP-Q Treatments Start: 10/10/18 16:34 Freq: Status: Active Protocol: Document 11/28/18 14:50 SA (Rec: 11/28/18 14:58 SA [email or web address]) Cardio Equipment Upper Body Ergometer (UBE) Duration (Minutes) 5 RPM 70 Seat Position 9 Height 2.5 Other fwd/bkwd Recumbent Elliptical (Biodex) Duration (Minutes) 7 Resistance 3 Seat Position 0 Other No rest break Gym Equipment Shuttle Balance Static/dynamic balance training Reps/Duration 4 min Comments NBOS, tandem stance, head turns Therapeutic Exercises Standing Exercises Squats Side bilateral Reps/Minutes 10x Comments at bar Standing hip EXTs Side bilateral Reps/Minutes 15x Comments at bar, cues for posture Hip Flex Standing Exercise Name Balance: March lifts and holds Side bilateral Resistance L 1 T-Band above the knees Comments Hold 5 & 10 sec Hip AB Standing Exercise Name Balance: Lifts and holds Side bilateral Comments 5 & 10 holds sidestep Standing Exercise Name sidestep Side bilateral Reps/Minutes 4 lengths of bar Comments yellow TB Heel Raises Side bilateral Reps/Minutes 20x Neuro Re-Education Treatment Balance Activities Jami step overs Reps/Duration 4 lengths of bar Comments Cues for increasing step elevation. Slow march Surface level Reps/Duration focus on SLS Comments controlled movement Tandem standing Details Holding at least 1 minute Surface Level PT-OP-T Assessment and Plan Start: 10/10/18 16:34 Freq: Status: Active Protocol: Document 11/28/18 14:50 SA (Rec: 11/28/18 14:58 SA [email or web address]) Physical Therapy Assessment Assessment Summary Assessment Pt with continued LE weakness but gradual improvements with activity tolerance and balance challenges. Encouraged to participate in senior exercise class this coming week. Physical Therapy Plan Next Visit Focus/Plan Next Note Type Treatment Note Next Visit Plan Check pt's tolerance to return to ex program at [facility] Center and tolerance to functional activities (laundry). Add UE strengthening ex's to her HEP. Continue to progress strengthening and balance program as tolerated, encourage consistency with HEP . Progress note in 1-2 visits.
--- NOTE | 2018-12-02 11:43 | PT.OTN ---
Current Diagnoses Other symptoms and signs involving cognitive functions and awareness (12/02/18) Other malaise (12/02/18) Physical Therapy Treatment Note PT-OP-A Visit Information Start: 10/10/18 16:34 Freq: Status: Active Protocol: Document 12/02/18 08:18 LRN (Rec: 12/02/18 09:06 LRN [id number]) Out-Patient Physical Therapy Visit Information Visit Information Visit Type Treatment Note Visit Start Time 08:18 Visit Stop Time 09:01 Total Visit Minutes 43 Visit Number 10 Number of SPIRAL RUNNER Visits 1 Evaluation Information Evaluation Date 10/13/18 PT-OP-B Current Condition Start: 10/10/18 16:34 Freq: Status: Active Protocol: Document 10/13/18 09:05 LRN (Rec: 10/13/18 10:02 LRN [id number]) Current Condition History of Current Condition Onset Date 03/2018 Current Complaints Weakness. History of Current Condition Had a terrible bout of diarrhea and became very weak and deconditioned, and now can 't get her energy back. She is stressed and is having difficulty sleeping. Legs feel weak with walking and after standing a few minutes. Lives with daughter. PMH: Pt reports L leg short. 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 L Low back hurts if sits wrong and stands too. Per intake sheet pt has hx of heart attack, joint replacement, thyroid disorder, memory loss. Records review indicates: Osteoporosis, anxiety, cognitive decline. Future Testing and Treatments Planned Testing for possible Alzheimers in [place] Waiting for appointment. 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 exercise class 3x/ week. Prior Functional Status Baseline Function- ADL's Independent Baseline Function- Mobility Independent Baseline Function- Recreation/Hobbies [facility] ex class 3x/week. 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 Functional Limitations- Recreation/ Unable to participate in [facility] ex class. After participating for 4 weeks she was still not able to finish the full class because she became very weak after a few minutes. Functional Limitations- Other Drives cautiously. Personal Factors Other Personal Factors That May Effect Lives with handicapped Therapy/Recovery daughter who tires easily. PT-OP-C Subjective Start: 10/10/18 16:34 Freq: Status: Active Protocol: Document 12/02/18 08:18 LRN (Rec: 12/02/18 09:06 LRN [id number]) OP-PT Subjective Patient Comments Patient Comments States she did the ex class ix , and was able to complete 1/2 the portion of the class. Chose to leave on the sitting part of the class. PT-OP-D Balance Start: 10/10/18 16:34 Freq: Status: Active Protocol: Document 11/21/18 12:47 LRN (Rec: 11/21/18 15:05 LR [id number]) Balance Tests Chou Balance Test Chou Balance Test Score 50 Chou Impairment Rating 1 to 19% Impaired (Score 45-55 ) Chou Balance Assessment Evaluation Sitting to Standing Ability Independent w/out Hands Unsupported Stance Safely- 2 minutes Sitting Unsupported, Feet on Floor Safely- 2 minutes Standing to Sitting Ability Safely, Minimal Hand Use Transfer Ability Safely, Minimal Hand Use Unsupported Stance- Eyes Closed Safely, 10 seconds Unsupported Stance- Eyes Open Independent, 1 minute Reaching Forward Standing Safely, 5 inches Pick- Up Object From Floor Independent/Safe Look Behind Shoulder - Standing Shifts Weight Well Turning 360 Degrees Turns Bilateral, < 4 secs Unsupported Stance, Alternating Feet on (I)- 8 Steps in 20 secs Stair Unsupported Tandem Stance Balance Lost- Step/Stand Unilateral Leg Stance Lifts Leg/Holds 5-10 secs Total Score Chou Total Score (out of 56 points) 50 Chou Impairment Rating 1 to 19% Impaired (Score 45-55 ) PT-OP-E Functional Tests Start: 10/10/18 16:34 Freq: Status: Active Protocol: Document 10/16/18 08:54 [facility] (Rec: 10/16/18 10:30 [facility] [id number]) Functional Tests 30 Second Sit to Stand Test Score 15 Comments daniel chair Timed Up and Go (TUG) Score 12 sec PT-OP-M Strength Start: 10/10/18 16:34 Freq: Status: Active Protocol: Document 10/16/18 08:54 [facility] (Rec: 10/16/18 10:30 [facility] [id number]) Hip Strength Hip Manual Muscle Testing Right Flexion (L2) 4- Good- Extension (S1) 3- Fair- Abduction 4- Good- External Rotation 4- Good- Internal Rotation 4- Good- Left Flexion (L2) 4- Good- Extension (S1) 3- Fair- Abduction 4- Good- External Rotation 4- Good- Internal Rotation 4- Good- PT-OP-Q Treatments Start: 10/10/18 16:34 Freq: Status: Active Protocol: Document 12/02/18 08:18 LRN (Rec: 12/02/18 09:06 LRN [id number]) Cardio Equipment Upper Body Ergometer (UBE) Duration (Minutes) 7 RPM 70 Seat Position 9 Height 2.5 Other fwd/bkwd Recumbent Elliptical (Biodex) Duration (Minutes) 8 Resistance 3 Seat Position 0 Other No rest break Therapeutic Exercises Sidelying Exercises Shoulder IR Side bilateral Reps/Minutes 10x2 Shoulder ER Side bilateral Reps/Minutes 10x2 Standing Exercises Shoulder strengthening Standing Exercise Name ABD, row, alt arm lifts, horz AB/AD, Up Press Reps/Minutes 10x each Self-Care/Home Management Treatment Education Patient Education Home Exercise Program Activities Self-Care/Home Management Activities Issued & reviewed HEP: Shoulder strengthening ex's with weights (AB, row, arm swings, horz AB/AD, shoulder press, chest press, sidelie ER /IR. PT-OP-T Assessment and Plan Start: 10/10/18 16:34 Freq: Status: Active Protocol: Document 12/02/18 08:18 LRN (Rec: 12/02/18 09:06 LRN [id number]) Physical Therapy Assessment Goals Endurance Impairment Decreased endurance Felled Seam Operator Chainstitch Goal (LTG) Pt will be able to return to participating in the [facility] exercise class 3x/week. LTG Duration 12/12/18 Strength Impairment Generalized weakness Felled Seam Operator Chainstitch Goal (LTG) Pt will be able to perform functional activities (laundry duties) without fatigue. LTG Duration 11/13/18 (12/02/18: GOAL MET for laundry duties) Self care program Impairment Lacks self care program Felled Seam Operator Chainstitch Goal (LTG) Pt will be independent in self care general strengthening program. LTG Duration 12/12/18 Progress Towards Goals Progress Comments Endurance Goal: Progressing. Pt returned to ex class in 1 day this week. Strength Goal: GOAL MET for laundry duties. Self Care Goal: HEP issued for UE ex's. Assessment Summary Assessment Pt able to return to ex program 1x this week, showing endurance improved. She had fair tolerance to UE ex; complained of fatigue. Pt agreeable to possible DC by next week if she is able to tolerate return to ex at [facility]. Physical Therapy Plan Frequency and Duration Frequency of Treatment 2x/Week Duration of Treatment 6-8 weeks Plan of Care Start Date 10/13/18 Plan of Care End Date 12/12/18 Next Visit Focus/Plan Next Note Type Treatment Note Next Visit Plan Check tolerance to functional activities other than laundry . Assess pt's return to [facility] exer program with a goal of 3x/week. Review LE ex 's for HEP and progress balance program as tolerated, encourage consistency with HEP . Progress note in 2 visits if needed. Possible DC to HEP and [facility] program next week.
--- NOTE | 2018-12-05 13:34 | PT.OTN ---
Current Diagnoses Other symptoms and signs involving cognitive functions and awareness (12/05/18) Other malaise (12/05/18) Physical Therapy Treatment Note PT-OP-A Visit Information Start: 10/10/18 16:34 Freq: Status: Active Protocol: Document 12/05/18 10:30 LRN (Rec: 12/05/18 11:18 LRN [id number]) Out-Patient Physical Therapy Visit Information Visit Information Visit Type Progress Note Visit Start Time 10:30 Visit Stop Time 11:19 Total Visit Minutes 49 Visit Number 11 Number of WASH OIL PUMP OPERATOR HELPER Visits 0 Evaluation Information Evaluation Date 10/13/18 PT-OP-B Current Condition Start: 10/10/18 16:34 Freq: Status: Active Protocol: Document 10/13/18 09:05 LRN (Rec: 10/13/18 10:02 LRN [id number]) Current Condition History of Current Condition Onset Date 03/2018 Current Complaints Weakness. History of Current Condition Had a terrible bout of diarrhea and became very weak and deconditioned, and now can 't get her energy back. She is stressed and is having difficulty sleeping. Legs feel weak with walking and after standing a few minutes. Lives with daughter. PMH: Pt reports L leg short. 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 L Low back hurts if sits wrong and stands too. Per intake sheet pt has hx of heart attack, joint replacement, thyroid disorder, memory loss. Records review indicates: Osteoporosis, anxiety, cognitive decline. Future Testing and Treatments Planned Testing for possible Alzheimers in [place] Waiting for appointment. 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 class 3x/ week. Prior Functional Status Baseline Function- ADL's Independent Baseline Function- Mobility Independent Baseline Function- Recreation/Hobbies [facility] ex class 3x/week. 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 Functional Limitations- Recreation/ Unable to participate in [facility] ex class. After participating for 4 weeks she was still not able to finish the full class because she became very weak after a few minutes. Functional Limitations- Other Drives cautiously. Personal Factors Other Personal Factors That May Effect Lives with handicapped Therapy/Recovery daughter who tires easily. PT-OP-C Subjective Start: 10/10/18 16:34 Freq: Status: Active Protocol: Document 12/05/18 10:30 LRN (Rec: 12/05/18 11:18 LR [id number]) OP-PT Subjective Patient Comments Patient Comments Did part of the ex class on Wed. Able to do all functional activities at home. PT-OP-D Balance Start: 10/10/18 16:34 Freq: Status: Active Protocol: Document 11/21/18 12:47 LRN (Rec: 11/21/18 15:05 LR [id number]) Balance Tests Chou Balance Test Chou Balance Test Score 50 Chou Impairment Rating 1 to 19% Impaired (Score 45-55 ) Chou Balance Assessment Evaluation Sitting to Standing Ability Independent w/out Hands Unsupported Stance Safely- 2 minutes Sitting Unsupported, Feet on Floor Safely- 2 minutes Standing to Sitting Ability Safely, Minimal Hand Use Transfer Ability Safely, Minimal Hand Use Unsupported Stance- Eyes Closed Safely, 10 seconds Unsupported Stance- Eyes Open Independent, 1 minute Reaching Forward Standing Safely, 5 inches Pick- Up Object From Floor Independent/Safe Look Behind Shoulder - Standing Shifts Weight Well Turning 360 Degrees Turns Bilateral, < 4 secs Unsupported Stance, Alternating Feet on (I)- 8 Steps in 20 secs Stair Unsupported Tandem Stance Balance Lost- Step/Stand Unilateral Leg Stance Lifts Leg/Holds 5-10 secs Total Score Chou Total Score (out of 56 points) 50 Chou Impairment Rating 1 to 19% Impaired (Score 45-55 ) PT-OP-E Functional Tests Start: 10/10/18 16:34 Freq: Status: Active Protocol: Document 10/16/18 08:54 [facility] (Rec: 10/16/18 10:30 [facility] [id number]) Functional Tests 30 Second Sit to Stand Test Score 15 Comments daniel chair Timed Up and Go (TUG) Score 12 sec PT-OP-M Strength Start: 10/10/18 16:34 Freq: Status: Active Protocol: Document 10/16/18 08:54 [facility] (Rec: 10/16/18 10:30 [facility] [id number]) Hip Strength Hip Manual Muscle Testing Right Flexion (L2) 4- Good- Extension (S1) 3- Fair- Abduction 4- Good- External Rotation 4- Good- Internal Rotation 4- Good- Left Flexion (L2) 4- Good- Extension (S1) 3- Fair- Abduction 4- Good- External Rotation 4- Good- Internal Rotation 4- Good- PT-OP-Q Treatments Start: 10/10/18 16:34 Freq: Status: Active Protocol: Document 12/05/18 10:30 LRN (Rec: 12/05/18 11:18 LRN [id number]) Cardio Equipment Upper Body Ergometer (UBE) Duration (Minutes) 7 RPM 70 Seat Position 9 Height 2.5 Other fwd/bkwd Recumbent Elliptical (Biodex) Duration (Minutes) 9 Resistance 3 Seat Position 0 Other 1 rest break Gym Equipment Shuttle Balance Static/dynamic balance training Details See standing ex's (march, hip AB, side stepping) Reps/Duration 8' Therapeutic Exercises Standing Exercises Ankle DF Standing Exercise Name Active ankle DF strengthening Side bilateral Reps/Minutes 15x Shoulder strengthening Standing Exercise Name Shoulder press, ABD, row, alt arm lifts, horz AB/AD Reps/Minutes 15x2 Squats Side bilateral Reps/Minutes 15x Comments at bar Hip Flex Standing Exercise Name Balance: March lifts and holds Side bilateral Resistance L 1 T-Band above the knees Comments Hold 5 & 10 sec Hip AB Standing Exercise Name Balance: Lifts and holds Side bilateral Comments 5 & 10 holds sidestep Standing Exercise Name sidestep Side bilateral Reps/Minutes 4 lengths of bar Comments yellow TB Neuro Re-Education Treatment Balance Activities Slow march Surface level Reps/Duration focus on SLS Comments controlled movement PT-OP-T Assessment and Plan Start: 10/10/18 16:34 Freq: Status: Active Protocol: Document 12/05/18 10:30 LRN (Rec: 12/05/18 11:18 LRN [id number]) Physical Therapy Assessment Goals Endurance Impairment Decreased endurance Counter Server Goal (LTG) Pt will be able to [facility] to [facility]. LTG Duration 12/12/18 (12/05/18: Goal Partially Met. Returned 2x/ week) Strength Impairment Generalized weakness [facility] Goal (LTG) Pt will be able to perform functional activities (laundry duties) without fatigue. LTG Duration 11/13/18 (12/05/18: GOAL MET) Self care program Impairment Lacks self care program Counter Server Goal (LTG) Pt will be independent in self care general strengthening program. LTG Duration 12/12/18 Assessment Summary Assessment Pt able to return to ex program 2x this week, showing endurance improved. She had fair tolerance to ex and required one rest during use of recumbent elliptical. Pt agreeable to possible DC by next week if she is able to tolerate return to ex 3x/week at [facility]. Physical Therapy Plan Frequency and Duration Frequency of Treatment 2x/Week Duration of Treatment 2-4 weeks Plan of Care Start Date 12/05/18 Plan of Care End Date 01/12/19 Therapeutic Interventions Therapeutic Interventions Balance Training Home Exercise Program Neuromuscular Re-education Patient/Caregiver Education Self-Care/Home Management Therapeutic Activities Therapeutic Exercises Modalities Cold Pack/Ice Massage Hot Packs Next Visit Focus/Plan Next Note Type Treatment Note Next Visit Plan Progress pt to tolerance of exer at the [facility] exer program 3x/week (in 1-4 weeks ). Review LE ex's for HEP and progress balance program as tolerated, encourage consistency with HEP.
--- NOTE | 2018-12-05 13:34 | PT.OPPOC ---
Current Diagnoses Other symptoms and signs involving cognitive functions and awareness (12/05/18) Other malaise (12/05/18) Provider Visit Care Team Role Provider Type Sasha Mesa PA-C Attending Provider Advanced Iron Caster Primary Care Provider Specialty: Medical Address: [address] [place] [address], [id number] Email: [email or web address] Plan Of Care PT-OP-T Assessment and Plan Start: 10/10/18 16:34 Freq: Status: Active Protocol: Document 12/05/18 10:30 LRN (Rec: 12/05/18 11:18 LRN [id number]) Physical Therapy Assessment Goals Endurance Impairment Decreased endurance Half-Way Goal (LTG) Pt will be able to return to participating in the [facility] exercise class 3x/week. LTG Duration 12/12/18 (12/05/18: Goal Partially Met. Returned 2x/ week) Strength Impairment Generalized weakness Half-Way Goal (LTG) Pt will be able to perform functional activities (laundry duties) without fatigue. LTG Duration 11/13/18 (12/05/18: GOAL MET) Self care program Impairment Lacks self care program Half-Way Goal (LTG) Pt will be independent in self care general strengthening program. LTG Duration 12/12/18 Assessment Summary Assessment Pt able to return to ex program 2x this week, showing endurance improved. She had fair tolerance to ex and required one rest during use of recumbent elliptical. Pt agreeable to possible DC by next week if she is able to tolerate return to ex 3x/week at [facility]. Physical Therapy Plan Frequency and Duration Frequency of Treatment 2x/Week Duration of Treatment 2-4 weeks Plan of Care Start Date 12/05/18 Plan of Care End Date 01/12/19 Therapeutic Interventions Therapeutic Interventions Balance Training Home Exercise Program Neuromuscular Re-education Patient/Caregiver Education Self-Care/Home Management Therapeutic Activities Therapeutic Exercises Modalities Cold Pack/Ice Massage Hot Packs Next Visit Focus/Plan Next Note Type Treatment Note Next Visit Plan Progress pt to tolerance of exer at the [facility] exer program 3x/week (in 1-4 weeks ). Review LE ex's for HEP and progress balance program as tolerated, encourage consistency with HEP. Plan of Care Dates Plan of Care Start Date 12/05/18 Plan of Care End Date 01/12/19 Please Sign and Return: I have reviewed this Plan of Care and certify that the skilled therapy services above are required to meet the patient?s needs. Physician Signature Date Printed Name and Credentials Clinical Instructor Signature Printed Name and Credentials
--- NOTE | 2018-12-09 14:58 | PT.OTN ---
Current Diagnoses Other symptoms and signs involving cognitive functions and awareness (12/09/18) Other malaise (12/09/18) Physical Therapy Treatment Note PT-OP-A Visit Information Start: 10/10/18 16:34 Freq: Status: Active Protocol: Document 12/09/18 12:48 LRN (Rec: 12/09/18 13:40 LRN [id number]) Out-Patient Physical Therapy Visit Information Visit Information Visit Type Treatment Note Visit Start Time 12:48 Visit Stop Time 13:39 Total Visit Minutes 51 Visit Number 12 Number of COMMERCIAL SALES DIRECTOR Visits 0 Evaluation Information Evaluation Date 10/13/18 PT-OP-B Current Condition Start: 10/10/18 16:34 Freq: Status: Active Protocol: Document 10/13/18 09:05 LRN (Rec: 10/13/18 10:02 LRN [id number]) Current Condition History of Current Condition Onset Date 03/2018 Current Complaints Weakness. History of Current Condition Had a terrible bout of diarrhea and became very weak and deconditioned, and now can 't get her energy back. She is stressed and is having difficulty sleeping. Legs feel weak with walking and after standing a few minutes. Lives with daughter. PMH: Pt reports L leg short. 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 L Low back hurts if sits wrong and stands too. Per intake sheet pt has hx of heart attack, joint replacement, thyroid disorder, memory loss. Records review indicates: Osteoporosis, anxiety, cognitive decline. Future Testing and Treatments Planned Testing for possible Alzheimers in [place] Waiting for appointment. 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 exercise class 3x/ week. Prior Functional Status Baseline Function- ADL's Independent Baseline Function- Mobility Independent Baseline Function- Recreation/Hobbies [facility] ex class 3x/week. 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 Functional Limitations- Recreation/ Unable to participate in [facility] ex class. After participating for 4 weeks she was still not able to finish the full class because she became very weak after a few minutes. Functional Limitations- Other Drives cautiously. Personal Factors Other Personal Factors That May Effect Lives with handicapped Therapy/Recovery daughter who tires easily. PT-OP-C Subjective Start: 10/10/18 16:34 Freq: Status: Active Protocol: Document 12/09/18 12:48 LRN (Rec: 12/09/18 13:40 LRN [id number]) OP-PT Subjective Patient Comments Patient Comments Went to the ex class last Sat and yesterday (Mon) and didn't have to sit for the class. PT-OP-D Balance Start: 10/10/18 16:34 Freq: Status: Active Protocol: Document 11/21/18 12:47 LRN (Rec: 11/21/18 15:05 LRN [id number]) Balance Tests Chou Balance Test Chou Balance Test Score 50 Chou Impairment Rating 1 to 19% Impaired (Score 45-55 ) Chou Balance Assessment Evaluation Sitting to Standing Ability Independent w/out Hands Unsupported Stance Safely- 2 minutes Sitting Unsupported, Feet on Floor Safely- 2 minutes Standing to Sitting Ability Safely, Minimal Hand Use Transfer Ability Safely, Minimal Hand Use Unsupported Stance- Eyes Closed Safely, 10 seconds Unsupported Stance- Eyes Open Independent, 1 minute Reaching Forward Standing Safely, 5 inches Pick- Up Object From Floor Independent/Safe Look Behind Shoulder - Standing Shifts Weight Well Turning 360 Degrees Turns Bilateral, < 4 secs Unsupported Stance, Alternating Feet on (I)- 8 Steps in 20 secs Stair Unsupported Tandem Stance Balance Lost- Step/Stand Unilateral Leg Stance Lifts Leg/Holds 5-10 secs Total Score Chou Total Score (out of 56 points) 50 Chou Impairment Rating 1 to 19% Impaired (Score 45-55 ) PT-OP-E Functional Tests Start: 10/10/18 16:34 Freq: Status: Active Protocol: Document 10/16/18 08:54 [facility] (Rec: 10/16/18 10:30 [facility] [id number]) Functional Tests 30 Second Sit to Stand Test Score 15 Comments daniel chair Timed Up and Go (TUG) Score 12 sec PT-OP-M Strength Start: 10/10/18 16:34 Freq: Status: Active Protocol: Document 10/16/18 08:54 [facility] (Rec: 10/16/18 10:30 [facility] [id number]) Hip Strength Hip Manual Muscle Testing Right Flexion (L2) 4- Good- Extension (S1) 3- Fair- Abduction 4- Good- External Rotation 4- Good- Internal Rotation 4- Good- Left Flexion (L2) 4- Good- Extension (S1) 3- Fair- Abduction 4- Good- External Rotation 4- Good- Internal Rotation 4- Good- PT-OP-Q Treatments Start: 10/10/18 16:34 Freq: Status: Active Protocol: Document 12/09/18 12:48 LRN (Rec: 12/09/18 13:40 LRN [id number]) Cardio Equipment Upper Body Ergometer (UBE) Duration (Minutes) 8 RPM 70 Seat Position 9 Height 2.5 Other fwd/bkwd Recumbent Elliptical (Biodex) Duration (Minutes) 10 Resistance 3 Seat Position 0 Other 1 rest break Gym Equipment Shuttle Recovery Bilateral Squats Resistance 50 Shuttle Recovery Platform Stable Reps/Time 30 Shuttle Balance Static/dynamic balance training Details See standing ex's (hip AB, ext ) Reps/Duration 8' Therapeutic Exercises Standing Exercises Ankle DF Standing Exercise Name Active ankle DF strengthening Side bilateral Reps/Minutes 15x Squats Side bilateral Reps/Minutes 15x 2 Comments at parallel bars Standing hip EXTs Standing Exercise Name Balance & strengthening hip ext Side bilateral Reps/Minutes 15x Comments at bar Hip AB Standing Exercise Name Balance: Lifts and holds Side bilateral Comments 5 & 10 holds Self-Care/Home Management Treatment Education Patient Education Home Exercise Program Activities Self-Care/Home Management Activities Issued & reviewewd HEP: Gastrocneumius stretch followed by active ankle DF & squats: shallow and sit back squat. PT-OP-T Assessment and Plan Start: 10/10/18 16:34 Freq: Status: Active Protocol: Document 12/09/18 12:48 LRN (Rec: 12/09/18 13:40 LRN [id number]) Physical Therapy Assessment Progress Towards Goals Progress Comments Endurance Goal: Progressing. Pt returned to ex class without needing rest. Strength Goal: GOAL MET for laundry duties. Self Care Goal: HEP issued for ankle & LE strengthening. Assessment Summary Assessment Pt has returned to ex program 2x and will go tomorrow and Fri for 3x/week program. She had fair tolerance to ex. Possible DC by next week if she is able to tolerate return to ex 3x/week at [facility]. Physical Therapy Plan Frequency and Duration Frequency of Treatment 2x/Week Duration of Treatment 2-4 weeks Plan of Care Start Date 12/05/18 Plan of Care End Date 01/12/19 Next Visit Focus/Plan Next Note Type Treatment Note Next Visit Plan Progress pt to tolerance of exer at the [facility] exer program 3x/week (in 1-4 weeks ). Review HEP issued and progress balance program as tolerated.
--- NOTE | 2018-12-16 15:29 | PT.OTN ---
Current Diagnoses Other symptoms and signs involving cognitive functions and awareness (12/16/18) Other malaise (12/16/18) Physical Therapy Treatment Note PT-OP-A Visit Information Start: 10/10/18 16:34 Freq: Status: Active Protocol: Document 12/16/18 15:14 SA (Rec: 12/16/18 15:29 SA [email or web address]) Out-Patient Physical Therapy Visit Information Visit Information Visit Type Treatment Note Visit Start Time 14:30 Visit Stop Time 15:15 Total Visit Minutes 45 Visit Number 13 Number of CORPORATE DRIVER Visits 1 PT-OP-B Current Condition Start: 10/10/18 16:34 Freq: Status: Active Protocol: Document 10/13/18 09:05 LRN (Rec: 10/13/18 10:02 LRN [id number]) Current Condition History of Current Condition Onset Date 03/2018 Current Complaints Weakness. History of Current Condition Had a terrible bout of diarrhea and became very weak and deconditioned, and now can 't get her energy back. She is stressed and is having difficulty sleeping. Legs feel weak with walking and after standing a few minutes. Lives with daughter. PMH: Pt reports L leg short. 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 L Low back hurts if sits wrong and stands too. Per intake sheet pt has hx of heart attack, joint replacement, thyroid disorder, memory loss. Records review indicates: Osteoporosis, anxiety, cognitive decline. Future Testing and Treatments Planned Testing for possible Alzheimers in [place]. Waiting for appointment. 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 class 3x/ week. Prior Functional Status Baseline Function- ADL's Independent Baseline Function- Mobility Independent Baseline Function- Recreation/Hobbies [facility] ex class 3x/week. 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 Functional Limitations- Recreation/ Unable to participate in [facility] ex class. After participating for 4 weeks she was still not able to finish the full class because she became very weak after a few minutes. Functional Limitations- Other Drives cautiously. Personal Factors Other Personal Factors That May Effect Lives with handicapped Therapy/Recovery daughter who tires easily. PT-OP-C Subjective Start: 10/10/18 16:34 Freq: Status: Active Protocol: Document 12/16/18 15:14 SA (Rec: 12/16/18 15:29 SA [id number]) OP-PT Subjective Patient Comments Patient Comments Pt went to [facility] class 3x last week and had PT on off days. Feels very tired this week but is glad she is back to exercise classes, went yesterday and will go again tomorrow. PT-OP-D Balance Start: 10/10/18 16:34 Freq: Status: Active Protocol: Document 11/21/18 12:47 LRN (Rec: 11/21/18 15:05 LRN [id number]) Balance Tests Chou Balance Test Chou Balance Test Score 50 Chou Impairment Rating 1 to 19% Impaired (Score 45-55 ) Chou Balance Assessment Evaluation Sitting to Standing Ability Independent w/out Hands Unsupported Stance Safely- 2 minutes Sitting Unsupported, Feet on Floor Safely- 2 minutes Standing to Sitting Ability Safely, Minimal Hand Use Transfer Ability Safely, Minimal Hand Use Unsupported Stance- Eyes Closed Safely, 10 seconds Unsupported Stance- Eyes Open Independent, 1 minute Reaching Forward Standing Safely, 5 inches Pick- Up Object From Floor Independent/Safe Look Behind Shoulder - Standing Shifts Weight Well Turning 360 Degrees Turns Bilateral, < 4 secs Unsupported Stance, Alternating Feet on (I)- 8 Steps in 20 secs Stair Unsupported Tandem Stance Balance Lost- Step/Stand Unilateral Leg Stance Lifts Leg/Holds 5-10 secs Total Score Chou Total Score (out of 56 points) 50 Chou Impairment Rating 1 to 19% Impaired (Score 45-55 ) PT-OP-E Functional Tests Start: 10/10/18 16:34 Freq: Status: Active Protocol: Document 10/16/18 08:54 [facility] (Rec: 10/16/18 10:30 [facility] [id number]) Functional Tests 30 Second Sit to Stand Test Score 15 Comments daniel chair Timed Up and Go (TUG) Score 12 sec PT-OP-M Strength Start: 10/10/18 16:34 Freq: Status: Active Protocol: Document 10/16/18 08:54 [facility] (Rec: 10/16/18 10:30 [facility] [id number]) Hip Strength Hip Manual Muscle Testing Right Flexion (L2) 4- Good- Extension (S1) 3- Fair- Abduction 4- Good- External Rotation 4- Good- Internal Rotation 4- Good- Left Flexion (L2) 4- Good- Extension (S1) 3- Fair- Abduction 4- Good- External Rotation 4- Good- Internal Rotation 4- Good- PT-OP-Q Treatments Start: 10/10/18 16:34 Freq: Status: Active Protocol: Document 12/16/18 15:14 SA (Rec: 12/16/18 15:29 [email or web address]) Cardio Equipment Recumbent Elliptical (Biodex) Duration (Minutes) 10 Resistance 3 Seat Position 0 Other 1 rest break Gym Equipment Shuttle Recovery Bilateral Squats Resistance 50 Shuttle Recovery Platform Stable Reps/Time 30 Shuttle Balance Static/dynamic balance training Details Blue Reps/Duration 5 min Comments heel/toe rasies, mini squats, head turns, UE raises. Therapeutic Exercises Sidelying Exercises Shoulder IR Side bilateral Reps/Minutes 10x2 Shoulder ER Side bilateral Reps/Minutes 10x2 Sitting Exercises Sit to stand Reps/Minutes 10x Comments No UE use Standing Exercises Ankle DF Standing Exercise Name Active ankle DF strengthening Side bilateral Reps/Minutes 15x Standing hip EXTs Standing Exercise Name Balance & strengthening hip ext Side bilateral Reps/Minutes 15x Comments at bar sidestep Standing Exercise Name sidestep Side bilateral Reps/Minutes 4 lengths of bar Comments yellow TB Neuro Re-Education Treatment Balance Activities Slow march Surface level Reps/Duration focus on SLS Comments controlled movement Tandem standing Details tandem walking Surface level Reps/Duration 4 lengths PT-OP-T Assessment and Plan Start: 10/10/18 16:34 Freq: Status: Active Protocol: Document 12/16/18 15:14 SA (Rec: 12/16/18 15:29 [email or web address]) Physical Therapy Assessment Progress Towards Goals Progress Towards Goals Progressing Toward Goals Progress Comments Pt tolerated exercise class 3x /week last week and PT sessions on off days. Assessment Summary Assessment Pt with increased fatigue today d/t increased activity outside of clinic. Tolerated ther ex and balance work well though with increased rest breaks. Physical Therapy Plan Next Visit Focus/Plan Next Note Type Discharge Summary Next Visit Plan Probable d/c next visit as pt is reaching goals, review HEP.
--- NOTE | 2018-12-18 12:32 | PT.OTN ---
Current Diagnoses Other symptoms and signs involving cognitive functions and awareness (12/18/18) Other malaise (12/18/18) Physical Therapy Treatment Note PT-OP-A Visit Information Start: 10/10/18 16:34 Freq: Status: Active Protocol: Document 12/18/18 11:16 LRN (Rec: 12/18/18 12:31 LRN [id number]) Out-Patient Physical Therapy Visit Information Visit Information Visit Type Discharge Summary Visit Note Treatment cut short d/t patient revealing that she fell last night and is having some pain at R wrist. Upon inspection revealed significant swelling and bruising. Advised pt to see MD . Called primary to make appointment but none available , pt left early to go to walk in clinic where her PCP practices at [facility]. Visit Start Time 11:16 Visit Stop Time 12:05 Total Visit Minutes 49 Visit Number 14 Number of DITCHER OPERATOR Visits 0 Evaluation Information Evaluation Date 10/13/18 PT-OP-B Current Condition Start: 10/10/18 16:34 Freq: Status: Active Protocol: Document 10/13/18 09:05 LRN (Rec: 10/13/18 10:02 LRN [id number]) Current Condition History of Current Condition Onset Date 03/2018 Current Complaints Weakness. History of Current Condition Had a terrible bout of diarrhea and became very weak and deconditioned, and now can 't get her energy back. She is stressed and is having difficulty sleeping. Legs feel weak with walking and after standing a few minutes. Lives with daughter. PMH: Pt reports L leg short. 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 L Low back hurts if sits wrong and stands too. Per intake sheet pt has hx of heart attack, joint replacement, thyroid disorder, memory loss. Records review indicates: Osteoporosis, anxiety, cognitive decline. Future Testing and Treatments Planned Testing for possible Alzheimers in [place] Waiting for appointment. 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 exercise class 3x/ week. Prior Functional Status Baseline Function- ADL's Independent Baseline Function- Mobility Independent Baseline Function- Recreation/Hobbies [facility] ex class 3x/week. 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 Functional Limitations- Recreation/ Unable to participate in [employer] ex class. After participating for 4 weeks she was still not able to finish the full class because she became very weak after a few minutes. Functional Limitations- Other Drives cautiously. Personal Factors Other Personal Factors That May Effect Lives with handicapped Therapy/Recovery daughter who tires easily. PT-OP-C Subjective Start: 10/10/18 16:34 Freq: Status: Active Protocol: Document 12/18/18 11:16 LRN (Rec: 12/18/18 12:31 LR [id number]) OP-PT Subjective Patient Comments Patient Comments States she has been attending [facility] [facility] ex class 3x/week and feels tired, but is attending . Patient Questionnaires ABC- Activity Specific Balance Confidence Scale ABC Score 73.75 ABC Functional Impairment 20 to <40% Impaired (Score 61- 80) PT-OP-D Balance Start: 10/10/18 16:34 Freq: Status: Active Protocol: Document 12/18/18 11:16 LRN (Rec: 12/18/18 12:31 [facility] [id number]) Balance Tests Single Limb Standing Single Limb- Right 15 Single Limb- Left 4 Smith Balance Assessment Evaluation Sitting to Standing Ability Independent w/out Hands Unsupported Stance Safely- 2 minutes Sitting Unsupported, Feet on Floor Safely- 2 minutes Standing to Sitting Ability Safely, Minimal Hand Use Transfer Ability Safely, Minimal Hand Use Unsupported Stance- Eyes Closed Safely, 10 seconds Unsupported Stance- Eyes Open Independent, 1 minute Reaching Forward Standing Safely, 5 inches Pick- Up Object From Floor Independent/Safe Look Behind Shoulder - Standing Shifts Weight Well Turning 360 Degrees Turns Bilateral, < 4 secs Unsupported Stance, Alternating Feet on (I)- 8 Steps in 20 secs Stair Unsupported Tandem Stance Assist to Step-15 seconds Unilateral Leg Stance Lifts Leg/Holds > 3 secs Total Score Smith Total Score (out of 56 points) 50 Smith Impairment Rating 1 to 19% Impaired (Score 45-55 ) PT-OP-E Functional Tests Start: 10/10/18 16:34 Freq: Status: Active Protocol: Document 10/16/18 08:54 LR (Rec: 10/16/18 10:30 [facility] [id number]) Functional Tests 30 Second Sit to Stand Test Score 15 Comments daniel chair Timed Up and Go (TUG) Score 12 sec PT-OP-M Strength Start: 10/10/18 16:34 Freq: Status: Active Protocol: Document 10/16/18 08:54 LR (Rec: 10/16/18 10:30 [facility] [id number]) Hip Strength Hip Manual Muscle Testing Right Flexion (L2) 4- Good- Extension (S1) 3- Fair- Abduction 4- Good- External Rotation 4- Good- Internal Rotation 4- Good- Left Flexion (L2) 4- Good- Extension (S1) 3- Fair- Abduction 4- Good- External Rotation 4- Good- Internal Rotation 4- Good- PT-OP-Q Treatments Start: 10/10/18 16:34 Freq: Status: Active Protocol: Document 12/18/18 11:16 LRN (Rec: 12/18/18 12:31 [facility] [id number]) Cardio Equipment Upper Body Ergometer (UBE) Duration (Minutes) 5 RPM 70 Height 2 Recumbent Elliptical (Biodex) Duration (Minutes) 10 Resistance 3 Seat Position 0 Other 1 rest break Therapeutic Exercises Sitting Exercises Sit to stand Reps/Minutes 10x Comments No UE use Standing Exercises Ankle DF Side bilateral Reps/Minutes 30x Squats Standing Exercise Name Alternating touching ground Side bilateral Reps/Minutes 4 x Standing hip EXTs Standing Exercise Name Balance & strengthening hip ext Side bilateral Reps/Minutes 30x Comments at bar Hip AB Standing Exercise Name Balance: Lifts Side bilateral Comments 30x Heel Raises Side bilateral Reps/Minutes 30x Neuro Re-Education Treatment Balance Activities Standing Details Feet together, EO/EC Reps/Duration 3' Functional movements Details Turning, looking over shoulder , reaching, toe tap on step Reps/Duration 15' SLS Details SLS in corner and in open area Reps/Duration 10' Tandem standing Details tandem stance Surface level Self-Care/Home Management Treatment Education Patient Education Home Exercise Program Activities Self-Care/Home Management Activities Issued and reviewed HEP: Corner standing balance ex. PT-OP-T Assessment and Plan Start: 10/10/18 16:34 Freq: Status: Active Protocol: Document 12/18/18 11:16 LRN (Rec: 12/18/18 12:31 LR [id number]) Physical Therapy Assessment Goals Endurance Impairment Decreased endurance Extruding Press Adjuster Goal (LTG) Pt will be able to return to participating in the [facility] exercise class 3x/week. LTG Duration 12/12/18 (12/18/18: GOAL MET) Strength Impairment Generalized weakness Custodial Goal (LTG) Pt will be able to perform functional activities (laundry duties) without fatigue. LTG Duration 11/13/18 (12/05/18: GOAL MET) Self care program Impairment Lacks self care program Custodial Goal (LTG) Pt will be independent in self care general strengthening program. LTG Duration 12/12/18 (12/18/18: GOAL MET) Assessment Summary Assessment Per SMITH balance score is unchange, but pt has improved in her tandem stance ability. She has slight improvement in her balance confidence per ABC Scale. The pt has returned to exercising at the Center and is consistent with her HEP. Goals were met. Physical Therapy Plan Discharge Physical Therapy Discharge Reasons Goals Met Discharge Comments Pt is ready to be discharged to her independent home and community exercise program. Thank you for your referral.
== END 2018-12-18 12:15 ==
LOC: PHYS 11:15
PROVIDERS: PCP Physician Assistant; Visit Provider Physician Assistant
DX: R53.81 Other malaise (principal); R41.89 Other symptoms and signs involving cognitive functions and awareness
CPT/HCPCS: 97110; 97112; 97162; 97535

== ENCOUNTER → 2019-01-29 10:42 | Outpatient (CLI) | payer MEDICARE, OTHER, SELFPAY ==
[2019-01-29 13:52] LABS: RBC Urine None Seen (0-5/HPF)
[2019-01-29 14:11] LABS: Appearance Urine UA CLOUDY; Bilirubin Urine UA NEGATIVE (NEGATIVE); Color Urine UA YELLOW; Glucose Urine UA NEGATIVE (Negative); Ketones Urine UA NEGATIVE (NEGATIVE); Leukocyte Esterase Urine UA 1+ (NEGATIVE); Nitrite Urine UA NEGATIVE (Negative); Occult Blood Urine UA NEGATIVE (Negative); Protein Urine UA 1+ (Negative); Specific Gravity Urine UA >=1.030 (1.000-1.035); Urobilinogen Urine UA 0.2 E.U./dL (0.2)
[2019-01-29 14:33] LABS: Amorphous Sediment Urine 4+; Bacteria Urine Few (2-10); Culture Indicated Urine Specimen Cultured; Mucus Urine 1+ (Negative); Squamous Epithelial Cell Urine 1-5 /HPF (0-5/HPF); WBC Urine 1-5/HPF (0-5/HPF)
== END ==
PROVIDERS: PCP Physician Assistant; Visit Provider Registered Nurse
DX: R35.0 Frequency of micturition (principal)
CPT/HCPCS: 81001; 87086

== ENCOUNTER → 2019-02-19 15:17 | Outpatient (CLI) | payer MEDICARE, OTHER, SELFPAY ==
[2019-02-19 16:30] LABS: Add Manual Diff / Slide Review NO; Basophils Absolute Auto 0 /uL (0-100); Basophils Percent Auto 0.7 % (0-2); Eosinophils Absolute Auto 0 /uL (0-450); Eosinophils Percent Auto 0.3 % (2-4); Hematocrit 33.9 % (36-46); Hemoglobin 11.5 g/dL (12.0-16.0); Lymphocytes Absolute Auto 1200 /uL (1100-4500); Lymphocytes Percent Auto 24.8 % (25-40); Mean Corpuscular HGB Conc 33.8 % (30-36); Mean Corpuscular Hemoglobin 32.2 PG (26-34); Mean Corpuscular Volume 95.1 fL (80-100); Monocytes Absolute Auto 300 /uL (0-900); Monocytes Percent Auto 7.4 % (3-14); Neutrophils Absolute Auto 3100 /uL (1500-7000); Neutrophils Percent Auto 66.8 % (50-75); Platelet Count 232 X10^3/uL (150-400); Red Blood Cell Count 3.57 X10^6/uL (4.0-5.2); Red Cell Distribution Width 13.3 % (11.6-14.8); White Blood Cell Count 4.7 X10^3/uL (4.5-11.0)
[2019-02-19 16:42] LABS: BUN Creatinine Ratio 20.8 (6-22); Blood Urea Nitrogen 25 mg/dL (7-17); Calcium 9.7 mg/dL (8.4-10.2); Carbon Dioxide 32 mmol/L (22-32); Chloride 101 mmol/L (98-107); Estimated Glomerular Filt Rate 42.8 mL/min (>60); Glucose 140 mg/dL (80-110); HEMOLYSIS < 15 (0-50); Potassium 4.3 mmol/L (3.4-5.1); Sodium 141 mmol/L (137-145)
[2019-02-19 16:46] LABS: Iron 55 ug/dL (37-170)
== END ==
PROVIDERS: PCP Physician Assistant; Visit Provider Physician Assistant
DX: D50.8 Other iron deficiency anemias (principal); R53.83 Other fatigue
CPT/HCPCS: 36415; 80048; 83540; 85025

== ENCOUNTER → 2019-03-23 09:34 | Outpatient (CLI) | payer MEDICARE, OTHER, SELFPAY ==
[2019-03-23 11:08] LABS: BUN Creatinine Ratio 15.5 (6-22); Blood Urea Nitrogen 17 mg/dL (7-17); Calcium 9.8 mg/dL (8.4-10.2); Carbon Dioxide 31 mmol/L (22-32); Chloride 103 mmol/L (98-107); Estimated Glomerular Filt Rate 47.3 mL/min (>60); Glucose 115 mg/dL (80-110); HEMOLYSIS < 15 (0-50); Potassium 4.5 mmol/L (3.4-5.1); Sodium 143 mmol/L (137-145)
== END ==
PROVIDERS: PCP Physician Assistant; Visit Provider Physician Assistant
DX: R79.89 Other specified abnormal findings of blood chemistry (principal)
CPT/HCPCS: 36415; 80048

== ENCOUNTER → 2019-04-01 08:22 | Outpatient (CLI) | payer MEDICARE, OTHER, SELFPAY ==
[2019-04-01 09:46] LABS: Free T3, Triiodothyronine Free 2.89 pg/mL (2.77-5.27); Free T4, Direct Thyroxine 0.97 ng/dL (0.78-2.19)
[2019-04-01 09:59] LABS: Thyroid Stimulating Hormone 3.72 uIU/mL (0.47-4.68)
== END ==
PROVIDERS: PCP Physician Assistant; Visit Provider Physician Assistant
DX: E03.9 Hypothyroidism, unspecified (principal)
CPT/HCPCS: 36415; 84439; 84443; 84481

== ENCOUNTER 2019-06-10 17:28 | Emergency (ER) | payer MEDICARE, OTHER, SELFPAY ==
--- NOTE | 2019-06-10 17:33 | DI.CT.S_ITS ---
PROCEDURE: CT HEAD/BRAIN WO CON INDICATIONS: fall TECHNIQUE: Noncontrast 4.5 mm thick angled axial sections acquired from the foramen magnum to the vertex, with coronal and sagittal reformats. For radiation dose reduction, the following was used: automated exposure control, adjustment of mA and/or kV according to patient size. COMPARISON: None. FINDINGS: Image quality: Excellent. CSF spaces: Basal cisterns are patent. No extra-axial fluid collections. The ventricles are symmetric in size and shape. Brain: No intracranial bleeds or masses. There is cerebral volume loss for age, with resultant ventricular and sulcal prominence. There are periventricular and deep white matter chronic small vessel ischemic changes. There is intracranial internal carotid artery atherosclerosis. Skull and face: Calvarium and visualized facial bones appear intact, without suspicious lesions. Very small right parietal soft tissue hematoma. Sinuses: The chronic appearing osteitis, particularly along the anterior and lateral aspects of the right maxillary sinus with complete opacification of the sinus. Left maxillary sinus, sphenoid sinus, and mastoid air cells are clear. Frontal sinuses are underdeveloped. The ethmoid air cells are clear.. IMPRESSION: 1. No CT evidence of acute intracranial trauma. 2. Age-appropriate exam. 3. 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 Dictated by: Shayy Carbajal M.D. on 06/10/2019 at 18:22 Approved by: Shayy Carbajal M.D. on 06/10/2019 at 18:26
[2019-06-10 17:34] VITALS: BP 201/83; PULSE 68; RESP 14; TEMP 36.3; O2SAT 98
[2019-06-10 18:02] LABS: Add Manual Diff / Slide Review NO; Basophils Absolute Auto 0 /uL (0-100); Basophils Percent Auto 0.9 % (0-2); Eosinophils Absolute Auto 0 /uL (0-450); Eosinophils Percent Auto 0.9 % (2-4); Hematocrit 32.1 % (36-46); Hemoglobin 10.9 g/dL (12.0-16.0); Lymphocytes Absolute Auto 1200 /uL (1100-4500); Lymphocytes Percent Auto 31.3 % (25-40); Mean Corpuscular HGB Conc 33.9 % (30-36); Mean Corpuscular Hemoglobin 32.6 PG (26-34); Mean Corpuscular Volume 96.1 fL (80-100); Monocytes Absolute Auto 300 /uL (0-900); Monocytes Percent Auto 8.6 % (3-14); Neutrophils Absolute Auto 2300 /uL (1500-7000); Neutrophils Percent Auto 58.3 % (50-75); Platelet Count 204 X10^3/uL (150-400); Red Blood Cell Count 3.34 X10^6/uL (4.0-5.2); White Blood Cell Count 3.9 X10^3/uL (4.5-11.0)
[2019-06-10 18:12] LABS: BUN Creatinine Ratio 18.3 (6-22); Blood Urea Nitrogen 22 mg/dL (7-17); Calcium 9.3 mg/dL (8.4-10.2); Carbon Dioxide 24 mmol/L (22-32); Chloride 105 mmol/L (98-107); Estimated Glomerular Filt Rate 42.8 mL/min (>60); Glucose 110 mg/dL (80-110); HEMOLYSIS < 15 (0-50); Potassium 3.7 mmol/L (3.4-5.1); Sodium 138 mmol/L (137-145)
--- NOTE | 2019-06-10 19:00 | ED.FALL ---
HPI - Fall <TESHA Dean - Last Filed: 06/10/19 19:18> General Chief Complaint: Fall Stated Complaint: GLF Time Seen by Provider: 06/10/19 17:33 Source: patient and EMS Mode of arrival: EMS Limitations: no limitations History of Present Illness HPI Narrative: The patient is an 83-year-old female by EMS for chief complaint of a ground level fall at [facility]. She reportedly had a trip or slip and fall. No loss of consciousness. Denies any lightheadedness or chest pain and falling. No use of blood thinners patient denies any head pain, neck pain back pain. She denies any pain. Denies any hip pain. Has been able to ambulate after fall. Was noted by EMS to get up and had trouble walking. Related Data Home Medications Medication Instructions Recorded Confirmed Probiotic 1 cap PO DAILY 09/22/18 06/10/19 cholecalciferol (vitamin D3) 1,000 unit PO DAILY 09/22/18 06/10/19 [Vitamin D3] multivitamin 1 tab PO DAILY 09/22/18 06/10/19 carbidopa 25 mg-levodopa 100 mg 0.5 tab PO DAILY tab 05/05/19 06/10/19 tablet Anxiety Balance 1 cap PO TID 06/10/19 06/10/19 Iron Capsule 1 cap PO DAILY 06/10/19 06/10/19 bismuth subsalicylate 524 mg PO PRN PRN MDD 16 tabs 06/10/19 06/10/19 [Pepto-Bismol] carbidopa-levodopa 1 tab PO BID 06/10/19 06/10/19 Allergies Allergy/AdvReac Type Severity Reaction Status Date / Time Penicillins [PENICILLINS] Allergy Intermediate Rash all Verified 06/10/19 17:34 over body wheat Allergy Intermediate Red Verified 06/10/19 17:34 Blotchy spots, mainly on face dairy Allergy Intermediate Red Uncoded 02/23/19 08:36 blotchy skin mainly on face Nuts Allergy Intermediate Red Uncoded 02/23/19 08:36 blotchy spots, mainly on face Review of Systems <TESHA Dean - Last Filed: 06/10/19 19:18> Review of Systems Narrative: GENERAL: Denies chills, fatigue, malaise, fever, sweats. HEENT: Denies sinus pain, ear pain, sore throat, difficulty swallowing, dizziness. RESPIRATORY: Denies dyspnea, cough, wheezing, hemoptysis, sputum. CARDIOVASCULAR: Denies chest pain, palpitations, orthopnea, edema, GASTROINTESTINAL: Denies nausea, vomiting, abdominal pain, diarrhea, constipation, melena. : Denies dysuria, frequency, incontinence, hematuria, urinary retention. MUSCULOSKELETAL: denies weakness, joint pain, or bony pain SKIN: Denies rash, skin lesions, or other NEUROLOGIC: See HPI PSYCHIATRIC: No concerning psychosocial issues. 12 point review of systems is negative except for those stated above Exam <Estella Gutierrez, RUNNING SPECIALIST-BC - Last Filed: 06/10/19 19:18> Narrative Exam Narrative: GENERAL: Thin elderly female no acute distress HEAD: Slight contusion noted left forehead. No temporal or scalp tenderness. EYES: Pupils equal round and reactive. Extraocular motions intact. No scleral icterus. No injection or drainage. ENT: Nose without bleeding, purulent drainage or septal hematoma. Throat without erythema, tonsillar hypertrophy or exudate. Uvula midline. Airway patent. NECK: Trachea midline. No JVD or lymphadenopathy. Supple, nontender, no meningeal signs. CARDIOVASCULAR: Regular rate and rhythm without murmurs, gallops, or rubs. RESPIRATORY: Clear to auscultation. Breath sounds equal bilaterally. No wheezes, rales, or rhonchi. No cough. No increased respiratory effort. No accessory muscle use. GASTROINTESTINAL: Abdomen soft, non-tender, nondistended. No hepato-splenomegaly, or palpable masses. No guarding. Active bowel sounds all 4 quadrants. EXTREMITIES: No clubbing, cyanosis, or edema. No joint tenderness, effusion, or edema noted. BACK: Nontender without deformity or crepitance. No flank tenderness. No pain to palpation of CT or L-spine. NEURO: AOx3. Speech clear speech. No gross cranial nerve deficit. SKIN: No rash or erythema on visible skin. Contusion as noted on head exam. No [place]ado signs. No periorbital ecchymosis. Initial Vital Signs Initial Vital Signs: Vital Signs Temperature 97.4 F L 06/10/19 17:34 Pulse Rate 68 06/10/19 17:34 Respiratory Rate 14 06/10/19 17:34 Blood Pressure 201/83 H 06/10/19 17:34 Pulse Oximetry 98 06/10/19 17:34 <Camilo Atkinson MD - Last Filed: 06/11/19 02:09> Initial Vital Signs Initial Vital Signs: Vital Signs Temperature 97.4 F L 06/10/19 17:34 Pulse Rate 68 06/10/19 17:34 Respiratory Rate 14 06/10/19 17:34 Blood Pressure 201/83 H 06/10/19 17:34 Pulse Oximetry 98 06/10/19 17:34 PFSH <TESHA Dean - Last Filed: 06/10/19 19:18> Medical History H/O: hysterectomy (Acute) Hypothyroidism (Chronic Unknown) Osteopenia (Chronic Unknown) Social History Smoking Status: Never smoker second hand exposure: Yes (My used to smoke for 10 years, but then he quit in 1963) alcohol intake: current substance use type: does not use Social History Smoking Status: Never smoker second hand exposure: Yes (My used to smoke for 10 years, but then he quit in 1963) alcohol intake: current substance use type: does not use Scores <TESHA Dean - Last Filed: 06/10/19 19:18> GCS [place] coma scale eye opening: Spontaneous [place] coma scale verbal response: Orientated [place] coma scale motor response: Obey commands [place] coma scale total score: 15 Nexus Score for C-Spine Focal Neurologic deficit present: No Midline spinal tenderness present: No Altered level of conciousness present: No Intoxication present: No Distracting Injury Present: No Nexus Criteria for C-spine: 0 Course <TESHA Dean - Last Filed: 06/10/19 19:18> Orders Ordered: ED Orders 06/10/19 17:33 CT head/brain wo con Stat 06/10/19 17:51 Basic Metabolic Panel Stat Complete Blood Count AUTO DIFF Stat Vital Signs Vital signs: Vital Signs - 8 hr 06/10/19 19:11 Pulse Rate 60 Respiratory Rate 16 Blood Pressure [Left Arm] 192/77 H Pulse Oximetry 97 <Camilo Atkinson MD - Last Filed: 06/11/19 02:09> Orders Ordered: ED Orders 06/10/19 17:33 CT head/brain wo con Stat 06/10/19 17:51 Basic Metabolic Panel Stat Complete Blood Count AUTO DIFF Stat Vital Signs Vital signs: Vital Signs - 8 hr 06/10/19 19:11 Pulse Rate 60 Respiratory Rate 16 Blood Pressure [Left Arm] 192/77 H Pulse Oximetry 97 MDM - Fall <ANKITA Dean- - Last Filed: 06/10/19 19:18> Lab Data Result diagrams: 06/10/19 17:51 06/10/19 17:51 Labs: Lab Results 06/10/19 06/10/19 Range/Units 17:51 17:51 WBC 3.9 L (4.5-11.0) X10^3/uL RBC 3.34 L (4.0-5.2) X10^6/uL Hgb 10.9 L (12.0-16.0) g/dL Hct 32.1 L (36-46) % MCV 96.1 (80-100) fL MCH 32.6 (26-34) PG MCHC 33.9 (30-36) % RDW 13.0 (11.6-14.8) % Plt Count 204 (150-400) X10^3/uL Neut % (Auto) 58.3 (50-75) % Lymph % (Auto) 31.3 (25-40) % [place] % (Auto) 8.6 (3-14) % Eos % (Auto) 0.9 L (2-4) % Baso % (Auto) 0.9 (0-2) % Neut # (Auto) 2300 (1928-7300) /uL Lymph # (Auto) 1200 (7881-5132) /uL [place] # (Auto) 300 (0-900) /uL Eos # (Auto) 0 (0-450) /uL Baso # (Auto) 0 (0-100) /uL Sodium 138 (137-145) mmol/L Potassium 3.7 (3.4-5.1) mmol/L Chloride 105 (98-107) mmol/L Carbon Dioxide 24 (22-32) mmol/L BUN 22 H (7-17) mg/dL Creatinine 1.20 H (0.52-1.04) mg/dL Estimated GFR 42.8 L (>60) mL/min BUN/Creatinine Ratio 18.3 (6-22) Glucose 110 (80-110) mg/dL Calcium 9.3 (8.4-10.2) mg/dL Urine Dip Bedside Urine Glucose Negative Bedside Urine Bilirubin - Negative Bedside Urine Ketone - Negative Urine Specific [place] 1.010 Bedside Urine Occult Blood - Negative Bedside Urine pH 7.5 Bedside Urine Protein - Negative Bedside Urine Urobilinogen - Negative Bedside Urine Nitrite - Negative Bedside Urine Leukocytes - Negative Esterase Imaging Data CT scan - head: Radiologist's impression: [address] [address] [address] Scan Report Signed Patient: Dejan Angulo LMR#: [id number] : 4Acct:[id number] Age/Sex: 83 / FDate of Service: 06/10/19 Loc: ED Accession Number: [id number] Procedure: CT head/brain wo con Ordering Provider: Melanie Holcomb D.O. PROCEDURE: CT HEAD/BRAIN WO CON INDICATIONS: fall TECHNIQUE: Noncontrast 4.5 mm thick angled axial sections acquired from the foramen magnum to the vertex, with coronal and sagittal reformats. For radiation dose reduction, the following was used: automated exposure control, adjustment of mA and/or kV according to patient size. COMPARISON: None. FINDINGS: Image quality: Excellent. CSF spaces: Basal cisterns are patent. No extra-axial fluid collections. The ventricles are symmetric in size and shape. Brain: No intracranial bleeds or masses. There is cerebral volume loss for age, with resultant ventricular and sulcal prominence. There are periventricular and deep white matter chronic small vessel ischemic changes. There is intracranial internal carotid artery atherosclerosis. Skull and face: Calvarium and visualized facial bones appear intact, without suspicious lesions. Very small right parietal soft tissue hematoma. Sinuses: The chronic appearing osteitis, particularly along the anterior and lateral aspects of the right maxillary sinus with complete opacification of the sinus. Left maxillary sinus, sphenoid sinus, and mastoid air cells are clear. Frontal sinuses are underdeveloped. The ethmoid air cells are clear.. IMPRESSION: 1. No CT evidence of acute intracranial trauma. 2. Age-appropriate exam. 3. 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 Dictated by: Shayy Carbajal M.D. on 06/10/2019 at 18:22 Approved by: Shayy Carbajal M.D. on 06/10/2019 at 18:26 [facility] Narrative Medical decision making narrative: The patient is an 83-year-old female with a history of Parkinson's who presents with a chief complaint of a ground level fall. She has a negative head CT. She is not on blood thinners, which is reassuring. Her lab work is grossly normal for her. She was able to ambulate steadily around the emergency department with a walker. Thus we discharged her with a walker. GCS was 15 throughout her stay in the emergency department. Encourage PCP follow-up. She repeatedly declines any pain throughout her stay in the emergency department. Discussed come back to the ER for any acute concerns such as chest pain shortness of breath etc. No questions or concerns upon discharge. <Camilo Atkinson MD - Last Filed: 06/11/19 02:09> Lab Data Labs: Lab Results 06/10/19 06/10/19 Range/Units 17:51 17:51 WBC 3.9 L (4.5-11.0) X10^3/uL RBC 3.34 L (4.0-5.2) X10^6/uL Hgb 10.9 L (12.0-16.0) g/dL Hct 32.1 L (36-46) % MCV 96.1 (80-100) fL MCH 32.6 (26-34) PG MCHC 33.9 (30-36) % RDW 13.0 (11.6-14.8) % Plt Count 204 (150-400) X10^3/uL Neut % (Auto) 58.3 (50-75) % Lymph % (Auto) 31.3 (25-40) % [place] % (Auto) 8.6 (3-14) % Eos % (Auto) 0.9 L (2-4) % Baso % (Auto) 0.9 (0-2) % Neut # (Auto) 2300 (2948-5234) /uL Lymph # (Auto) 1200 (0437-8866) /uL [place] # (Auto) 300 (0-900) /uL Eos # (Auto) 0 (0-450) /uL Baso # (Auto) 0 (0-100) /uL Sodium 138 (137-145) mmol/L Potassium 3.7 (3.4-5.1) mmol/L Chloride 105 (98-107) mmol/L Carbon Dioxide 24 (22-32) mmol/L BUN 22 H (7-17) mg/dL Creatinine 1.20 H (0.52-1.04) mg/dL Estimated GFR 42.8 L (>60) mL/min BUN/Creatinine Ratio 18.3 (6-22) Glucose 110 (80-110) mg/dL Calcium 9.3 (8.4-10.2) mg/dL Urine Dip Bedside Urine Glucose Negative Bedside Urine Bilirubin - Negative Bedside Urine Ketone - Negative Urine Specific [place] 1.010 Bedside Urine Occult Blood - Negative Bedside Urine pH 7.5 Bedside Urine Protein - Negative Bedside Urine Urobilinogen - Negative Bedside Urine Nitrite - Negative Bedside Urine Leukocytes - Negative Esterase Discharge Plan Departure Patient Disposition: Home Clinical Impression: Fall from ground level Contusion of head Qualifiers: Encounter type: initial encounter Contusion of head detail: scalp Qualified Code(s): S00.03XA - Contusion of scalp, initial encounter Discharge Date/Time: 06/10/19 19:51 Instructions: How to Choose and Use a Walker, DI for Contusion, How to Prevent Falls Activity Restrictions/Additional Instructions: Please follow with your primary care provider soon as possible. Your head scan today showed no bleeding. Lab work correlates with her previous lab work. Please use the walker that we have provided. Please come back to the emergency department for any acute concerns such as chest pain, shortness of breath etc Prescriptions: No Action carbidopa-levodopa 25-100 mg tablet 0.5 tab PO DAILY RF: 0 multivitamin Tablet 1 tab PO DAILY RF: 0 cholecalciferol (vitamin D3) [Vitamin D3] 1,000 unit Capsule 1,000 unit PO DAILY RF: 0 Probiotic 1 cap PO DAILY RF: 0 Anxiety Balance 1 cap PO TID RF: 0 bismuth subsalicylate [Pepto-Bismol] 262 mg Tablet,Chewable 524 mg PO PRN MDD 16 tabs PRN (Reason: Diarrhea) RF: 0 carbidopa-levodopa 25-100 mg Tablet 1 tab PO BID RF: 0 Iron Capsule 28 mg 1 cap PO DAILY RF: 0 Referrals: Sasha Mesa PA-C [Primary Care Provider] -
[2019-06-10 19:11] VITALS: BP 192/77; PULSE 60; RESP 16; O2SAT 97
== END 2019-06-10 19:51 | disposition home or self-care (01) ==
PROVIDERS: Emergency Medicine; Emergency Provider Nurse Practitioner Family; PCP Physician Assistant
DX: S00.03XA Contusion of scalp, initial encounter (principal); W18.30XA Fall on same level, unspecified, initial encounter
CPT/HCPCS: 36415; 70450; 80048; 81003; 85025; 99282; 99284

== ENCOUNTER 2019-06-12 10:24 | Emergency (ER) | payer MEDICARE, OTHER, SELFPAY ==
--- NOTE | 2019-06-12 10:35 | ED.AMS ---
HPI - Altered Mental Status General Chief Complaint: Altered Mental Status Stated Complaint: Decreased Mental Status Time Seen by Provider: 06/12/19 10:33 Source: EMS Mode of arrival: EMS Limitations: no limitations History of Present Illness HPI narrative: Patient is an 83-year-old female. Has a history of Parkinson's disease. Was seen here in the emergency department a couple days ago for a fall. Had a head CT and relatively negative workup. She returns today for concerns of altered mental status. EMS reports that the nursing facility stated that this morning the patient seemed altered. EMS reports that they were told the patient refused to have her blood pressure checked. She did have a increase in her Parkinson's medication within the past several weeks and was concerned that maybe this medication was causing problems. EMS reports that the patient had been alert and oriented x3 and calm and cooperative in route here to the emergency department. Blood sugar was unremarkable. Upon arrival here in the ER patient denied any symptoms. Related Data Home Medications Medication Instructions Recorded Confirmed Probiotic 1 cap PO DAILY 09/22/18 06/12/19 cholecalciferol (vitamin D3) 1,000 unit PO DAILY 09/22/18 06/12/19 [Vitamin D3] multivitamin 1 tab PO DAILY 09/22/18 06/12/19 carbidopa 25 mg-levodopa 100 mg 0.5 tab PO DAILY tab 05/05/19 06/12/19 tablet Anxiety Balance 1 cap PO TID 06/10/19 06/12/19 Iron Capsule 1 cap PO DAILY 06/10/19 06/12/19 bismuth subsalicylate 524 mg PO PRN PRN MDD 16 tabs 06/10/19 06/12/19 [Pepto-Bismol] carbidopa-levodopa 1 tab PO BID 06/10/19 06/12/19 Previous Rx's Medication Instructions Recorded carbidopa-levodopa 0.5 tab PO QAC #30 tab 06/12/19 lorazepam [Ativan] 0.5 mg PO TID PRN #10 tab 06/12/19 Allergies Allergy/AdvReac Type Severity Reaction Status Date / Time Penicillins [PENICILLINS] Allergy Intermediate Rash all Verified 06/10/19 17:34 over body wheat Allergy Intermediate Red Verified 06/10/19 17:34 Blotchy spots, mainly on face dairy Allergy Intermediate Red Uncoded 02/23/19 08:36 blotchy skin mainly on face Nuts Allergy Intermediate Red Uncoded 02/23/19 08:36 blotchy spots, mainly on face Review of Systems Constitutional Constitutional: Denies fever(s) and Denies headache(s) Eyes Eyes: Denies change in vision ENT Ears, Nose, Mouth, and Throat: Denies headache(s) Cardiovascular Cardiovascular: Denies chest pain and Denies dyspnea Respiratory Respiratory: Denies dyspnea Gastrointestinal Gastrointestinal: Denies abdominal pain Musculoskeletal Musculoskeletal: Denies tingling Integumentary/Breasts Skin/Breast: Denies lesions and Denies rash Neurologic Neurologic: Denies behavioral changes, Denies confusion, Denies headache(s) and Denies tingling Psychiatric Psychiatric: Denies behavioral changes and Denies confusion Hematologic/Lymphatic Hematologic/Lymphatic: Denies easy bleeding and Denies easy bruising Exam Initial Vital Signs Initial Vital Signs: Vital Signs Pulse Rate 67 06/12/19 10:55 Respiratory Rate 18 06/12/19 10:55 Blood Pressure 133/60 06/12/19 10:55 Pulse Oximetry 100 06/12/19 10:55 Const General: cooperative, comfortable, well developed and well groomed Orientation: alert, awake, oriented x3 and oriented to time (Was able to say the year however took her a little while to remember it) HENMT Head: normal to inspection and normocephalic Resp Effort & Inspection: normal respiratory effort Auscultation: clear to auscultation bilaterally Cardio Rate: regular rate Rhythm: regular rhythm Skin Lesions: no lesions Rashes: no rashes Neuro General: alert, awake and oriented x3 Cognition: normal cognition Speech: speech normal Gait: normal gait Motor: muscle tone normal throughout Extrem General: normal to inspection and capillary refill normal Psych Appearance: grossly normal and well kempt Course Orders Ordered: ED Orders 06/12/19 10:41 CT head/brain wo con Stat 06/12/19 11:02 Ammonia (NH3) Stat Basic Metabolic Panel Stat Complete Blood Count AUTO DIFF Stat Ethanol (ETOH) Stat Discontinued Medications Lorazepam (Ativan) 0.5 mg PO NOW ONE Stop: 06/12/19 11:59 Last Admin: 06/12/19 13:02 Dose: Not Given Documented by: KATHERINE Vital Signs Vital signs: Vital Signs - 8 hr 06/12/19 10:55 09/27/19 13:03 Pulse Rate 67 69 Respiratory Rate 18 18 Blood Pressure [Right Arm] 133/60 185/70 H Pulse Oximetry 100 100 MDM - Altered Mental Status Lab Data Attestation: I reviewed the patient's lab results. Result diagrams: 06/12/19 11:02 06/12/19 11:02 Labs: Lab Results 06/12/19 06/12/19 06/12/19 Range/Units 11:02 11:02 11:02 WBC 4.0 L (4.5-11.0) X10^3/uL RBC 3.25 L (4.0-5.2) X10^6/uL Hgb 10.5 L (12.0-16.0) g/dL Hct 31.5 L (36-46) % MCV 96.8 (80-100) fL MCH 32.2 (26-34) PG MCHC 33.3 (30-36) % RDW 13.1 (11.6-14.8) % Plt Count 204 (150-400) X10^3/uL Neut % (Auto) 57.5 (50-75) % Lymph % (Auto) 28.0 (25-40) % [place] % (Auto) 13.5 (3-14) % Eos % (Auto) 0.4 L (2-4) % Baso % (Auto) 0.6 (0-2) % Neut # (Auto) 2300 (0655-0118) /uL Lymph # (Auto) 1100 (7587-1315) /uL [place] # (Auto) 500 (0-900) /uL Eos # (Auto) 0 (0-450) /uL Baso # (Auto) 0 (0-100) /uL Sodium 138 (137-145) mmol/L Potassium 4.4 (3.4-5.1) mmol/L Chloride 103 (98-107) mmol/L Carbon Dioxide 26 (22-32) mmol/L BUN 24 H (7-17) mg/dL Creatinine 1.00 (0.52-1.04) mg/dL Estimated GFR 52.8 L (>60) mL/min BUN/Creatinine Ratio 24.0 H (6-22) Glucose 93 (80-110) mg/dL Calcium 9.5 (8.4-10.2) mg/dL Ammonia < 9.0 L (9-30) umol/L Ethyl Alcohol < 10 ( - 10) mg/dL Point of Care Testing Glucose POC 142 Urine Dip Bedside Urine Glucose Negative Bedside Urine Bilirubin + 1 Bedside Urine Ketone - Negative Urine Specific [place] 1.010 Bedside Urine Occult Blood - Negative Bedside Urine pH 7.5 Bedside Urine Protein +/- 15 Bedside Urine Urobilinogen - Negative Bedside Urine Nitrite - Negative Bedside Urine Leukocytes - Negative Esterase Imaging Data CT scan - head: Radiologist's impression: [address] [address] [address] Scan Report Signed Patient: Dejan Angulo LMR#: [id number] : 4Acct:[id number] Age/Sex: 83 / FDate of Service: 06/12/19 Loc: ED Accession Number: [id number] Procedure: CT head/brain wo con Ordering Provider: Jd Coombs D.O. PROCEDURE: CT HEAD/BRAIN WO CON INDICATIONS: Altered mental status TECHNIQUE: Noncontrast 4.5 mm thick angled axial sections acquired from the foramen magnum to the vertex, with coronal and sagittal reformats. For radiation dose reduction, the following was used: automated exposure control, adjustment of mA and/or kV according to patient size. COMPARISON: [facility], CT, CT HEAD/BRAIN WO CON, 06/10/2019, 18:06. FINDINGS: Image quality: Excellent. CSF spaces: Basal cisterns are patent. No extra-axial fluid collections. The ventricles are symmetric in size and shape. Brain: No intracranial bleeds or masses. There is cerebral volume loss for age, with resultant ventricular and sulcal prominence. There are periventricular and deep white matter chronic small vessel ischemic changes. There is intracranial internal carotid artery atherosclerosis. Skull and face: Calvarium and visualized facial bones appear intact, without suspicious lesions. Sinuses: Wall thickening and sinus opacification of the right maxillary sinus, chronic. Other visualized sinuses and mastoids are clear. IMPRESSION: 1. No CT evidence of acute intracranial process. 2. Age-appropriate exam. 3. Chronic right maxillary sinus disease. Dictated by: Shayy Carbajal M.D. on 06/12/2019 at 11:08 Approved by: Shayy Carbajal M.D. on 06/12/2019 at 11:11 [facility] Narrative Medical decision making narrative: Patient's workup here in the emergency department was relatively unremarkable. She was alert and oriented however did hesitate somewhat on the year and why she was here. Repeat head CT was unremarkable. Her family did arrive at baseline. They are concerned that the increase in the Parkinson's medication could be causing a lot of her symptoms which did seem to start about the time that the increase the medicines. She currently is on carbidopa/levodopa 25/100 mg. She takes 1 full tablet with meals at breakfast and dinner and half a tablet at lunch. I did discuss the case with the on-call neurologist at [facility] and telling him who stated that we could decrease this to 1/2 tablet with meals. We believe that this was the dose that she was on before the increase to 2 weeks ago. No further workup necessary here in the ER. No indication for admission to the hospital. We discussed return precautions and follow-up instructions. Patient's family states that they feel that she is very anxious and was asking for anxiety medication. Will send home with a short course of this. They are given return precautions. They all expressed understanding and agreement with plan. Discharge Plan Departure Patient Disposition: Home Clinical Impression: Altered mental status, Parkinsons disease Instructions: How to Prevent Falls Activity Restrictions/Additional Instructions: I recommend that her Parkinson's medicine (carbidopa levodopa 25/100 mg tablets) be changed to 1/2 tablet by mouth 3 times a day with meals. She can also take the anxiety medication as needed for anxiety. Recommend that on Saturday her primary provider and also her neurologist or contacted. She can return to the emergency department any time for new or worsening symptoms Prescriptions: New carbidopa-levodopa 25-100 mg tablet 0.5 tab PO QAC Qty: 30 RF: 0 lorazepam [Ativan] 1 mg tablet 0.5 mg PO TID PRN (Reason: anxiety) Qty: 10 RF: 0 No Action carbidopa-levodopa 25-100 mg tablet 0.5 tab PO DAILY RF: 0 multivitamin Tablet 1 tab PO DAILY RF: 0 cholecalciferol (vitamin D3) [Vitamin D3] 1,000 unit Capsule 1,000 unit PO DAILY RF: 0 Probiotic 1 cap PO DAILY RF: 0 Anxiety Balance 1 cap PO TID RF: 0 bismuth subsalicylate [Pepto-Bismol] 262 mg Tablet,Chewable 524 mg PO PRN MDD 16 tabs PRN (Reason: Diarrhea) RF: 0 carbidopa-levodopa 25-100 mg Tablet 1 tab PO BID RF: 0 Iron Capsule 28 mg 1 cap PO DAILY RF: 0 Referrals: Sasha Mesa PA-C [Primary Care Provider] -
--- NOTE | 2019-06-12 10:41 | DI.CT.S_ITS ---
PROCEDURE: CT HEAD/BRAIN WO CON INDICATIONS: Altered mental status TECHNIQUE: Noncontrast 4.5 mm thick angled axial sections acquired from the foramen magnum to the vertex, with coronal and sagittal reformats. For radiation dose reduction, the following was used: automated exposure control, adjustment of mA and/or kV according to patient size. COMPARISON: [facility], CT, CT HEAD/BRAIN WO CON, 06/10/2019, 18:06. FINDINGS: Image quality: Excellent. CSF spaces: Basal cisterns are patent. No extra-axial fluid collections. The ventricles are symmetric in size and shape. Brain: No intracranial bleeds or masses. There is cerebral volume loss for age, with resultant ventricular and sulcal prominence. There are periventricular and deep white matter chronic small vessel ischemic changes. There is intracranial internal carotid artery atherosclerosis. Skull and face: Calvarium and visualized facial bones appear intact, without suspicious lesions. Sinuses: Wall thickening and sinus opacification of the right maxillary sinus, chronic. Other visualized sinuses and mastoids are clear. IMPRESSION: 1. No CT evidence of acute intracranial process. 2. Age-appropriate exam. 3. Chronic right maxillary sinus disease. Dictated by: Shayy Carbajal M.D. on 06/12/2019 at 11:08 Approved by: Shayy Carbajal M.D. on 06/12/2019 at 11:11
[2019-06-12 10:55] VITALS: BP 133/60; PULSE 67; RESP 18; O2SAT 100
[2019-06-12 11:20] LABS: Add Manual Diff / Slide Review NO; Basophils Absolute Auto 0 /uL (0-100); Basophils Percent Auto 0.6 % (0-2); Eosinophils Absolute Auto 0 /uL (0-450); Eosinophils Percent Auto 0.4 % (2-4); Hematocrit 31.5 % (36-46); Hemoglobin 10.5 g/dL (12.0-16.0); Lymphocytes Absolute Auto 1100 /uL (1100-4500); Mean Corpuscular HGB Conc 33.3 % (30-36); Mean Corpuscular Hemoglobin 32.2 PG (26-34); Mean Corpuscular Volume 96.8 fL (80-100); Monocytes Absolute Auto 500 /uL (0-900); Monocytes Percent Auto 13.5 % (3-14); Neutrophils Absolute Auto 2300 /uL (1500-7000); Neutrophils Percent Auto 57.5 % (50-75); Platelet Count 204 X10^3/uL (150-400); Red Blood Cell Count 3.25 X10^6/uL (4.0-5.2); Red Cell Distribution Width 13.1 % (11.6-14.8)
[2019-06-12 11:29] LABS: Ammonia (NH3) < 9.0 umol/L (9-30)
[2019-06-12 11:30] LABS: Blood Urea Nitrogen 24 mg/dL (7-17); Calcium 9.5 mg/dL (8.4-10.2); Carbon Dioxide 26 mmol/L (22-32); Chloride 103 mmol/L (98-107); Estimated Glomerular Filt Rate 52.8 mL/min (>60); Ethanol (ETOH) < 10 mg/dL; Glucose 93 mg/dL (80-110); HEMOLYSIS < 15 (0-50); Potassium 4.4 mmol/L (3.4-5.1); Sodium 138 mmol/L (137-145)
[2019-06-12 13:03] VITALS: BP 185/70; PULSE 69; RESP 18; O2SAT 100
[2019-06-12 14:33] VITALS: BP 173/80; PULSE 82; RESP 18; O2SAT 99
== END 2019-06-12 14:34 | disposition home or self-care (01) ==
PROVIDERS: Emergency Provider Emergency Medicine; PCP Physician Assistant
DX: R41.82 Altered mental status, unspecified (principal)
CPT/HCPCS: 36415; 70450; 80048; 80320; 81003; 82140; 85025; 99284

== ENCOUNTER 2019-06-14 17:13 | Inpatient (IN) | payer MEDICARE, OTHER, SELFPAY ==
--- NOTE | 2019-06-14 17:18 | DI.RAD.S_ITS ---
PROCEDURE: XR PELVIS 1-2V INDICATIONS: fall pain TECHNIQUE: 1 view of the lower pelvis acquired. COMPARISON: None. FINDINGS: Bones: Patient is status post right hip arthroplasty, with hardware components in expected positions. The hip joint appears congruent. The visualized bony structures appear intact. Soft tissues: Overlying postoperative changes are noted. No suspicious soft tissue densities. IMPRESSION: No acute fracture. No osseous lesion. If clinical suspicion and/or symptoms persist, further assessment with repeat plainfilms, or advanced imaging (e.g., CT, MRI, or bone scan) may be helpful for further assessment. Dictated by: Felipe Ace M.D. on 06/14/2019 at 18:14 Approved by: Felipe Ace M.D. on 06/14/2019 at 18:15
--- NOTE | 2019-06-14 17:18 | DI.RAD.S_ITS ---
PROCEDURE: XR SHOULDER LT MIN 2V INDICATIONS: fall pain TECHNIQUE: 2 views of the shoulder were acquired. COMPARISON: None. FINDINGS: Bones: No fractures or dislocations. No suspicious bony lesions. Visualized ribs appear intact. Soft tissues: No suspicious soft tissue calcifications. IMPRESSION: No acute fracture. No osseous lesion. If clinical suspicion and/or symptoms persist, further assessment with repeat plainfilms, or advanced imaging (e.g., CT, MRI, or bone scan) may be helpful for further assessment. Dictated by: Felipe Ace M.D. on 06/14/2019 at 18:13 Approved by: Felipe Ace M.D. on 06/14/2019 at 18:14
[2019-06-14 17:22] VITALS: BP 160/63; PULSE 65; RESP 18; TEMP 36.7; O2SAT 99
[2019-06-14 18:09] VITALS: BP 173/54; PULSE 65; O2SAT 100
--- NOTE | 2019-06-14 18:25 | ED.WEAKNESS ---
HPI - Weakness General Chief complaint: Weakness Stated complaint: GLF, weakness Time Seen by Provider: 06/14/19 17:17 Source: patient, family and EMS Mode of arrival: EMS Limitations: altered mental status History of Present Illness HPI Narrative: 83-year-old female nonsmoker with history of Parkinson's presents by EMS for evaluation of an unwitnessed fall. Daughter went to check on the patient and found her lying on the ground. She had no complaints and has no recall of the event. She has become increasingly confused and weak over the past 7-10 days. She has been losing control of her bladder which is new. This is her 3rd visit since Saturday. There was some alterations made in her Parkinson's meds and they were decreased to half a tablet each meal after consulting with patient's neurologist from [facility]. Additionally due to increasing anxiety the patient was started on Ativan on Saturday evening which does not seem to be helping with her anxiety. She complains only of left shoulder pain. MD Complaint: generalized weakness, lack of energy and difficulty walking Onset (ago): day(s) Duration: progressively worsening Location: generalized Severity: moderate Context: new medication, trauma/injury and history of similar Related Data Home Medications Medication Instructions Recorded Confirmed Probiotic 1 cap PO DAILY 09/22/18 06/14/19 cholecalciferol (vitamin D3) 1,000 unit PO DAILY 09/22/18 06/14/19 [Vitamin D3] multivitamin 1 tab PO DAILY 09/22/18 06/14/19 carbidopa 25 mg-levodopa 100 mg 0.5 tab PO DAILY tab 05/05/19 06/12/19 tablet Anxiety Balance 1 cap PO TIDWM 06/10/19 06/14/19 Iron Capsule 18 mg PO DAILY 06/10/19 06/12/19 bismuth subsalicylate 2 tab PO PRN PRN MDD 16 tabs 06/10/19 06/14/19 [Pepto-Bismol] carbidopa-levodopa 1 tab PO BID 06/10/19 06/12/19 carbidopa-levodopa 0.5 tab PO TIDWM 06/14/19 06/14/19 Previous Rx's Medication Instructions Recorded lorazepam [Ativan] 0.5 mg PO TID PRN #10 tab 06/12/19 Allergies Allergy/AdvReac Type Severity Reaction Status Date / Time Penicillins [PENICILLINS] Allergy Intermediate Rash all Verified 06/14/19 17:22 over body wheat Allergy Intermediate Red Verified 06/14/19 17:22 Blotchy spots, mainly on face dairy Allergy Intermediate Red Uncoded 06/14/19 17:22 blotchy skin mainly on face Nuts Allergy Intermediate Red Uncoded 06/14/19 17:22 blotchy spots, mainly on face Review of Systems Review of Systems Narrative: Patient has very little to say other than left shoulder pain, most of review comes from her daughter at the bedside ROS Unobtainable: Unobtainable due to mental status/LOC Constitutional Constitutional: Denies chills, Reports fatigue, Denies fever(s), Reports frequent falls, Denies lethargy and Reports weakness Eyes Eyes: Denies change in vision, Denies eye discharge, Denies irritation and Denies loss of vision ENT Ears, Nose, Mouth, and Throat: Denies change in voice, Denies dizziness, Denies neck pain, Denies sore throat and Denies throat swelling Cardiovascular Cardiovascular: Denies chest pain, Denies irregular heart rhythm, Denies lightheadedness, Denies palpitations, Denies dyspnea, Denies dyspnea on exertion and Denies orthopnea Respiratory Respiratory: Denies cough, Denies dyspnea, Denies dyspnea on exertion and Denies wheezing Gastrointestinal Gastrointestinal: Denies abdominal pain, Denies change in bowel habits, Denies diarrhea, Denies nausea and Denies vomiting Genitourinary Genitourinary: Denies hematuria, Denies flank pain, Denies urinary incontinence and Denies urinary urgency Musculoskeletal Musculoskeletal: Denies back pain, Reports limited range of motion, Denies muscle weakness, Denies neck pain, Denies numbness and Denies tingling Comments: Shoulder pain Integumentary/Breasts Skin/Breast: Denies pruritus, Denies erythema, Denies rash and Denies wounds Neurologic Neurologic: Reports behavioral changes, Reports confusion, Denies dizziness, Reports frequent falls, Denies loss of vision, Denies numbness, Denies tingling and Reports weakness Psychiatric Psychiatric: Denies anxiety, Reports behavioral changes, Reports confusion, Denies depression, Denies homicidal ideation and Denies suicidal ideation Endocrine Endocrine: Reports fatigue, Denies flushing and Denies palpitations Hematologic/Lymphatic Hematologic/Lymphatic: Denies easy bruising Allergic/Immunologic Allergic/Immunologic: Denies urticaria, Denies throat swelling and Denies wheezing COUNT INCLUDES THE [facility] Social History household members: none Smoking Status: Never smoker second hand exposure: Yes (My used to smoke for 10 years, but then he quit in 1963) alcohol intake: never substance use type: does not use Exam Narrative Exam Narrative: GENERAL: [83] year old patient appears stated age. Pleasantly confused. GCS 15 HEAD: Fading yellowish bruise on left forehead re-demonstrated EYES: Pupils equal round and reactive. Extraocular motions intact. No scleral icterus. No injection or drainage. ENT: Dry mucous membranes Nose without bleeding, purulent drainage. Throat without erythema, tonsillar hypertrophy or exudate. Airway patent. NECK: Trachea midline. Non tender CARDIOVASCULAR: Regular rate and rhythm without murmurs, gallops, or rubs. RESPIRATORY: Clear to auscultation. Breath sounds equal bilaterally. No wheezes, rales, or rhonchi. GASTROINTESTINAL: Abdomen soft, non-tender, nondistended. EXTREMITIES: No edema or joint tenderness. BACK: Nontender without deformity or crepitance. No flank tenderness. NEURO: Alert, knows her name and location but does not know the date. Furthermore she is unclear about why she came or how she got here SKIN: No rash or erythema of visible areas Initial Vital Signs Initial Vital Signs: Vital Signs Temperature 98.1 F 06/14/19 17:22 Pulse Rate 65 06/14/19 17:22 Respiratory Rate 18 06/14/19 17:22 Blood Pressure 160/63 H 06/14/19 17:22 Pulse Oximetry 99 06/14/19 17:22 Course Orders Ordered: ED Orders 06/14/19 17:18 XR pelvis 1-2V Stat XR shoulder LT min 2V Stat 06/14/19 18:36 CT head/brain wo con Stat 06/14/19 18:40 Basic Metabolic Panel Stat Complete Blood Count AUTO DIFF Stat Troponin & CK Cardiac Panel Stat 06/14/19 20:30 Urinalysis and Microscopic Stat Discontinued Medications Sodium Chloride (Normal Saline 0.9%) 500 mls @ 1,000 mls/hr IV BOLUS ONE Stop: 06/14/19 19:47 Last Infusion: 06/14/19 21:38 Dose: 1,000 mls/hr Documented by: Admin: 06/14/19 21:15 Dose: 1,000 mls/hr Documented by: JANELL Consultations Consultation #1: Hospitalist happy to accept Vital Signs Vital signs: Vital Signs - 8 hr 06/14/19 17:22 06/14/19 18:09 06/14/19 19:04 Temperature 98.1 F Pulse Rate 65 65 66 Respiratory Rate 18 18 Blood Pressure 160/63 H Blood Pressure [Left Arm] 173/54 H 166/52 H Pulse Oximetry 99 100 100 06/14/19 20:21 Temperature Pulse Rate 69 Respiratory Rate Blood Pressure Blood Pressure [Left Arm] 142/53 H Pulse Oximetry 100 MDM - Weakness Lab Data Result diagrams: 06/14/19 18:40 06/14/19 18:40 Labs: Lab Results 06/14/19 06/14/19 06/14/19 Range/Units 18:40 18:40 20:30 WBC 4.4 L (4.5-11.0) X10^3/uL RBC 3.47 L (4.0-5.2) X10^6/uL Hgb 11.3 L (12.0-16.0) g/dL Hct 33.2 L (36-46) % MCV 95.8 (80-100) fL MCH 32.4 (26-34) PG MCHC 33.9 (30-36) % RDW 13.2 (11.6-14.8) % Plt Count 206 (150-400) X10^3/uL Neut % (Auto) 65.4 (50-75) % Lymph % (Auto) 23.2 L (25-40) % [place] % (Auto) 10.2 (3-14) % Eos % (Auto) 0.3 L (2-4) % Baso % (Auto) 0.9 (0-2) % Neut # (Auto) 2900 (7293-4536) /uL Lymph # (Auto) 1000 L (5971-6685) /uL [place] # (Auto) 400 (0-900) /uL Eos # (Auto) 0 (0-450) /uL Baso # (Auto) 0 (0-100) /uL Sodium 137 (137-145) mmol/L Potassium 4.0 (3.4-5.1) mmol/L Chloride 105 (98-107) mmol/L Carbon Dioxide 25 (22-32) mmol/L BUN 21 H (7-17) mg/dL Creatinine 1.00 (0.52-1.04) mg/dL Estimated GFR 52.8 L (>60) mL/min BUN/Creatinine Ratio 21.0 (6-22) Glucose 96 (80-110) mg/dL Calcium 9.8 (8.4-10.2) mg/dL Total Creatine Kinase 94 (30-135) U/L CK-MB (CK-2) TNP CK-MB (CK-2) Rel Index TNP Troponin I < 0.012 (0.01-0.034) ng/mL Urine Color Yellow Urine Appearance Clear Urine pH 6.0 (4.5-8.0) Ur Specific [place] 1.020 (1.000-1.035) Urine Protein Negative (Negative) Urine Glucose (UA) Negative (Negative) g/dL Urine Ketones Trace H (NEGATIVE) Urine Occult Blood Negative (Negative) Urine Nitrate Negative (Negative) Urine Bilirubin Negative (NEGATIVE) Urine Urobilinogen 0.2 (0.2) E.U./dL Ur Leukocyte Esterase Negative (NEGATIVE) Urine RBC 0-1/hpf (0-5/HPF) Urine WBC 0-1/hpf (0-5/HPF) Ur Squamous Epith Cells 0-1 /hpf (0-5/HPF) Urine Bacteria Occasional (0-1) (None) Urine Mucus 2+ H (Negative) Ur Culture Indicated? Cult not indicated Imaging Data CT scan - head: Radiologist's impression: [place] [address] CT Scan Report Signed Patient: Dejan Angulo LMR#: [id number] : 4Acct:[id number] Age/Sex: 83 / FDate of Service: 06/14/19 Loc: ED Accession Number: [id number] Procedure: CT head/brain wo con Ordering Provider: Samuel Coates D.O. PROCEDURE: CT HEAD/BRAIN WO CON INDICATIONS: mutliple falls, head injury, confusion TECHNIQUE: Noncontrast 4.5 mm thick angled axial sections acquired from the foramen magnum to the vertex, with coronal and sagittal reformats. For radiation dose reduction, the following was used: automated exposure control, adjustment of mA and/or kV according to patient size. COMPARISON: [facility], CT, CT HEAD/BRAIN WO CON, 06/12/2019, 10:46. FINDINGS: Image quality: Excellent. CSF spaces: Basal cisterns are patent. No extra-axial fluid collections. The ventricles are symmetric in size and shape. Brain: No intracranial bleeds or masses. There is cerebral volume loss for age, with resultant ventricular and sulcal prominence. There are periventricular and deep white matter chronic small vessel ischemic changes. There is intracranial internal carotid artery atherosclerosis. Skull and face: Calvarium and visualized facial bones appear intact, without suspicious lesions. Sinuses: There is near-complete opacification of the right maxillary sinus which demonstrates high density material within it, as before. Visualized sinuses and mastoids are otherwise clear. IMPRESSION: 1. No acute intracranial abnormality. 2. Hemorrhagic versus fungal right maxillary sinus disease. Dictated by: Felipe Ace M.D. on 06/14/2019 at 19:[address] [address] XRay Report Signed Patient: Sang Angulolibby JIMENEZ#: [id number] : 4Acct:[id number] Age/Sex: 83 / FDate of Service: 06/14/19 Loc: ED Accession Number: [id number] Procedure: XR shoulder LT min 2V Ordering Provider: Melanie Holcomb D.O. PROCEDURE: XR SHOULDER LT MIN 2V INDICATIONS: fall pain TECHNIQUE: 2 views of the shoulder were acquired. COMPARISON: None. FINDINGS: Bones: No fractures or dislocations. No suspicious bony lesions. Visualized ribs appear intact. Soft tissues: No suspicious soft tissue calcifications. IMPRESSION: No acute fracture. No osseous lesion. If clinical suspicion and/or symptoms persist, further assessment with repeat plainfilms, or advanced imaging (e.g., CT, MRI, or bone scan) may be helpful for further assessment. Dictated by: Felipe Ace M.D. on 06/14/2019 at 18:13 Approved by: Felipe Ace M.D. on 06/14/2019 at 18:14 Dejan Angulo L 83 F [address] [address] XRay Report Signed Patient: Dejan Angulo LMR#: [id number] : 4Acct:[id number] Age/Sex: 83 / FDate of Service: 06/14/19 Loc: ED Accession Number: [id number] Procedure: XR pelvis 1-2V Ordering Provider: Melanie Holcomb D.O. PROCEDURE: XR PELVIS 1-2V INDICATIONS: fall pain TECHNIQUE: 1 view of the lower pelvis acquired. COMPARISON: None. FINDINGS: Bones: Patient is status post right hip arthroplasty, with hardware components in expected positions. The hip joint appears congruent. The visualized bony structures appear intact. Soft tissues: Overlying postoperative changes are noted. No suspicious soft tissue densities. IMPRESSION: No acute fracture. No osseous lesion. If clinical suspicion and/or symptoms persist, further assessment with repeat plainfilms, or advanced imaging (e.g., CT, MRI, or bone scan) may be helpful for further assessment. Dictated by: Felipe Ace M.D. on 06/14/2019 at 18:14 Approved by: Felipe Ace M.D. on 06/14/2019 at 18:15 Approved by: Felipe Ace M.D. on 06/14/2019 at 19:20 [facility] Narrative Medical decision making narrative: 83-year-old female with dementia and Parkinson's returns for the 3rd time in the past few days. Over the past week or so she has had a rather precipitous decline with increased falls and confusion. There is no obviously reversible cause noted on today's exam but she is a gross departure from her normal, even from yesterday per the daughter. She fell and laid on the ground for upwards of 4 hours earlier and will require further evaluation and stabilization of her condition before she can safely be sent home. Discharge Plan Departure Patient Disposition: Admitted as Observation Clinical Impression: Failure to thrive Discharge Date/Time: 06/14/19 21:35 Admit Date/Time: 06/14/19 21:28 Admit Provider: Sylvia Cope
--- NOTE | 2019-06-14 18:36 | DI.CT.S_ITS ---
PROCEDURE: CT HEAD/BRAIN WO CON INDICATIONS: mutliple falls, head injury, confusion TECHNIQUE: Noncontrast 4.5 mm thick angled axial sections acquired from the foramen magnum to the vertex, with coronal and sagittal reformats. For radiation dose reduction, the following was used: automated exposure control, adjustment of mA and/or kV according to patient size. COMPARISON: [facility], CT, CT HEAD/BRAIN WO CON, 06/12/2019, 10:46. FINDINGS: Image quality: Excellent. CSF spaces: Basal cisterns are patent. No extra-axial fluid collections. The ventricles are symmetric in size and shape. Brain: No intracranial bleeds or masses. There is cerebral volume loss for age, with resultant ventricular and sulcal prominence. There are periventricular and deep white matter chronic small vessel ischemic changes. There is intracranial internal carotid artery atherosclerosis. Skull and face: Calvarium and visualized facial bones appear intact, without suspicious lesions. Sinuses: There is near-complete opacification of the right maxillary sinus which demonstrates high density material within it, as before. Visualized sinuses and mastoids are otherwise clear. IMPRESSION: 1. No acute intracranial abnormality. 2. Hemorrhagic versus fungal right maxillary sinus disease. Dictated by: Felipe Ace M.D. on 06/14/2019 at 19:19 Approved by: Felipe Ace M.D. on 06/14/2019 at 19:20
[2019-06-14 18:50] LABS: Add Manual Diff / Slide Review NO; Basophils Absolute Auto 0 /uL (0-100); Basophils Percent Auto 0.9 % (0-2); Eosinophils Absolute Auto 0 /uL (0-450); Eosinophils Percent Auto 0.3 % (2-4); Hematocrit 33.2 % (36-46); Hemoglobin 11.3 g/dL (12.0-16.0); Lymphocytes Absolute Auto 1000 /uL (1100-4500); Lymphocytes Percent Auto 23.2 % (25-40); Mean Corpuscular HGB Conc 33.9 % (30-36); Mean Corpuscular Hemoglobin 32.4 PG (26-34); Mean Corpuscular Volume 95.8 fL (80-100); Monocytes Absolute Auto 400 /uL (0-900); Monocytes Percent Auto 10.2 % (3-14); Neutrophils Absolute Auto 2900 /uL (1500-7000); Neutrophils Percent Auto 65.4 % (50-75); Platelet Count 206 X10^3/uL (150-400); Red Blood Cell Count 3.47 X10^6/uL (4.0-5.2); Red Cell Distribution Width 13.2 % (11.6-14.8); White Blood Cell Count 4.4 X10^3/uL (4.5-11.0)
[2019-06-14 19:00] LABS: Blood Urea Nitrogen 21 mg/dL (7-17); Calcium 9.8 mg/dL (8.4-10.2); Carbon Dioxide 25 mmol/L (22-32); Chloride 105 mmol/L (98-107); Creatine Kinase 94 U/L (30-135); Estimated Glomerular Filt Rate 52.8 mL/min (>60); Glucose 96 mg/dL (80-110); HEMOLYSIS < 15 (0-50); Sodium 137 mmol/L (137-145)
[2019-06-14 19:04] VITALS: BP 166/52; PULSE 66; RESP 18; O2SAT 100
[2019-06-14 19:12] LABS: Troponin I < 0.012 ng/mL (0.01-0.034)
[2019-06-14 20:21] VITALS: BP 142/53; PULSE 69; O2SAT 100
[2019-06-14 20:42] LABS: Appearance Urine UA CLEAR; Bilirubin Urine UA NEGATIVE (NEGATIVE); Color Urine UA YELLOW; Glucose Urine UA NEGATIVE (Negative); Ketones Urine UA TRACE (NEGATIVE); Leukocyte Esterase Urine UA NEGATIVE (NEGATIVE); Nitrite Urine UA NEGATIVE (Negative); Occult Blood Urine UA NEGATIVE (Negative); Protein Urine UA NEGATIVE (Negative); Urobilinogen Urine UA 0.2 E.U./dL (0.2)
[2019-06-14 20:48] LABS: Bacteria Urine Occasional (0-1); Culture Indicated Urine Cult Not Indicated; Mucus Urine 2+ (Negative); RBC Urine 0-1/HPF (0-5/HPF); Squamous Epithelial Cell Urine 0-1 /HPF (0-5/HPF); WBC Urine 0-1/HPF (0-5/HPF)
[2019-06-14] MEDS: SODIUM CHLORIDE 0.9% 500 ML 1000 ML IV (21:15)
[2019-06-14 21:34] VITALS: BP 170/92; PULSE 73; RESP 16; O2SAT 100
[2019-06-14 22:13] VITALS: BMI 17.7
--- NOTE | 2019-06-14 22:47 | PC.ADMIT ---
Pt to acute care from ER, transported via stretcher, slider board to bed. Pt alert, oriented to self only. Reports intermittent pain in left shoulder, family member Eric reports old collarbone injury from childhood that still bothers her. Coccyx red, not blanchable. Eric took clothing home to wash. No other belongings present. Oriented pt to room/call light, will need reorientation due to confusion. At times answers questions with word salad. Eric is emergency contact/DPOA. Pt does have a son as next of kin, but he is [place] out of the [place]. Assisted pt to BSC with 2 person assist and pt voided. Gait unsteady and slow. History of parkinsons. Back to bed and turned to right side. Bed alarm on. [email or web address] Admission Note: The patient,Dejan Angulo,83 y/o, was given written information regarding hospital policies, unit procedures and contact persons. Patient's smoking status: Never smoker. Vital Signs - 8 hr 06/14/19 17:22 06/14/19 18:09 06/14/19 19:04 Temperature 98.1 F Pulse Rate 65 65 66 Respiratory Rate 18 18 Blood Pressure 160/63 H Blood Pressure [Left Arm] 173/54 H 166/52 H Pulse Oximetry 99 100 100 06/14/19 20:21 06/14/19 21:34 Temperature Pulse Rate 69 73 Respiratory Rate 16 Blood Pressure 170/92 H Blood Pressure [Left Arm] 142/53 H Pulse Oximetry 100 100
[2019-06-14 23:00] VITALS: BP 140/68; PULSE 66; RESP 14; TEMP 36.6; O2SAT 100
--- NOTE | 2019-06-14 23:30 | PM.HP.1 ---
History of Present Illness History of Present Illness Date Patient Seen: 06/14/19 Time Patient Seen: 21:59 Chief complaint: GLF, weakness Narrative: Patient is unable to provide HPI due to underlying dementia and acute delirium. HPI is provided by patient's sister, Eric Dietz, who is also her DPOA. The patient is an 83-year-old female who presented to the ED for further evaluation after being found down on the floor. This is patient's 3rd fall and 3rd ED evaluation in the past 7 days. Previously seen on 06/10 and 06/12. Each ER visit was preceded by a GLF. Once again, it is suspected that patient had suffered a ground level fall. The event was unwitnessed. Patient was last seen at 1:00 p.m. in the afternoon and discovered at approximately 5:00 p.m., per patient's sister who is providing contents of the HPI. Patient was found to be incontinent of urine. Not known to be on anticoagulation or anti thrombotic therapy. In the past 10 days there has been a marked decline in patient's cognition and mobility. Specifically she is noted to be more confused and delirious. She is observed to be weak and have difficulty with ambulation. She does have some degree of Urinary incontinence at baseline, however this has been significantly worse in the last 1-2 weeks. At baseline patient ambulates independently or with a use of a cane. She does have diminished memory recall. Also known to have difficulty with speech and word finding. Recently, 3 months ago patient was diagnosed with Parkinson's. She was started on Sinemet. One week ago the dose of the Sinemet and has been adjusted (increased). Saturday she was started on lorazepam for anxiety. Family feels that patient's delirium has worsened since addition of lorazepam. PMHx of Fe anemia, Parkinson's, hypothyroidism, MV stenosis ?, osteopenia, DANE, IBS (diarrhea predominant), anxiety ED presentation & work-up Labs, 06/14 @ 1840 WBC 4.4 Hgb 11.3 Plt 206 Na 137 K 4.0 Cl 105 Ca 9.8 Glu 96 CO2 25 BUN 21 Cr 1.0 BUN 53 BUN:Cr 21 Total CK 94 Trop < 0.012 UA. Essentially unremarkable, ketones (trace), mucus 2+. CT HEAD. No acute intracranial abnormality. No intracranial bleeds or masses. Hemorrhagic vs fungal right maxillary sinus disease. XR SHOULDER. No acute fracture or dislocations. No osseous lesion. Visualized ribs appear intact. No suspicious soft tissue calcifications. XR PELVIS. No acute fracture. No osseous lesion. Patient History Family & Social History Social History: household members none Prior Living Arrangements [facility] since May 07, 2019 Tobacco & Substance use: Smoking Status Never smoker alcohol intake never alcohol intake frequency holiday/special occasion Substance Use Type does not use Meds Home Medications and Allergies Home Medications Medication Instructions Recorded Confirmed Type Probiotic 1 cap PO DAILY 09/22/18 06/14/19 History cholecalciferol (vitamin D3) 1,000 unit PO DAILY 09/22/18 06/14/19 History [Vitamin D3] multivitamin 1 tab PO DAILY 09/22/18 06/14/19 History carbidopa 25 mg-levodopa 100 mg 0.5 tab PO DAILY tab 05/05/19 06/12/19 History tablet Anxiety Balance 1 cap PO TIDWM 06/10/19 06/14/19 History Iron Capsule 18 mg PO DAILY 06/10/19 06/12/19 History bismuth subsalicylate 2 tab PO PRN PRN MDD 16 tabs 06/10/19 06/14/19 History [Pepto-Bismol] carbidopa-levodopa 1 tab PO BID 06/10/19 06/12/19 History lorazepam [Ativan] 0.5 mg PO TID PRN #10 tab 06/12/19 06/14/19 Rx carbidopa-levodopa 0.5 tab PO TIDWM 06/14/19 06/14/19 History Allergies Allergy/AdvReac Type Severity Reaction Status Date / Time Penicillins [PENICILLINS] Allergy Intermediate Rash all Verified 06/14/19 17:22 over body wheat Allergy Intermediate Red Verified 06/14/19 17:22 Blotchy spots, mainly on face dairy Allergy Intermediate Red Uncoded 06/14/19 17:22 blotchy skin mainly on face Nuts Allergy Intermediate Red Uncoded 06/14/19 17:22 blotchy spots, mainly on face Review of Systems Review of Systems ROS Unobtainable: unobtainable due to mental status (advanced demential w/ delirium) Exam Vital Signs (past 8 hours): - 06/14/19 17:22 06/14/19 18:09 06/14/19 19:04 Temperature 98.1 F Pulse Rate 65 65 66 Respiratory Rate 18 18 Blood Pressure 160/63 H Blood Pressure [Left Arm] 173/54 H 166/52 H Pulse Oximetry 99 100 100 06/14/19 20:21 06/14/19 21:34 06/14/19 23:00 Temperature 97.8 F Pulse Rate 69 73 66 Respiratory Rate 16 14 Blood Pressure 170/92 H 140/68 Blood Pressure [Left Arm] 142/53 H Pulse Oximetry 100 100 100 Oxygen Delivery Method Room Air Narrative Exam Narrative: Constitutional: NAD, cachectic, GCS 12-13 (confused vs inappropriate or disturbed words / thought pattern; able to localize pain (follows commands intermittently)). Neurologic: Awake. Alert. Oriented to self only. Poor memory recall / deficit. Inability to focus. Thought process is disorganized. Follows simple commands intermittently. Spontaneous movement in upper and lower extremities noted. Psych: Patient is calm. No evidence of agitation. Mildly anxious. No overt emotional lability. No evidence of hallucinations. Head: NC, AT Eyes: PERRL, EOMI, Ears: external ears normal, no otorrhea Nose: external nose normal, no epistaxis Throat: MMM, oropharynx w/o exudate Neck: no masses, lymphadenopathy, or JVD Chest / Respiratory: equal chest rise, unlabored respiratory effort, no dyspnea or tachypnea, diminished breath sounds, on room air Heart / CV: S1S2, no murmur Abdomen / GI: round, NT, ND, + BS, no organomegaly : no suprapubic tenderness Peripheral / Vascular: warm to touch, DP and PT pulses palpable, no edema Musc: Spontaneous movement in both upper and lower extremities Skin: no ecchymosis or suspicious lesions / ulcers Objective Labs Result Diagrams: 06/14/19 18:40 06/14/19 18:40 Labs: Laboratory Results - last 24 hr 06/14/19 06/14/19 06/14/19 18:40 18:40 20:30 WBC 4.4 L RBC 3.47 L Hgb 11.3 L Hct 33.2 L MCV 95.8 MCH 32.4 MCHC 33.9 RDW 13.2 Plt Count 206 Neut % (Auto) 65.4 Lymph % (Auto) 23.2 L [place] % (Auto) 10.2 Eos % (Auto) 0.3 L Baso % (Auto) 0.9 Neut # (Auto) 2900 Lymph # (Auto) 1000 L [place] # (Auto) 400 Eos # (Auto) 0 Baso # (Auto) 0 Sodium 137 Potassium 4.0 Chloride 105 Carbon Dioxide 25 BUN 21 H Creatinine 1.00 Estimated GFR 52.8 L BUN/Creatinine Ratio 21.0 Glucose 96 Calcium 9.8 Total Creatine Kinase 94 CK-MB (CK-2) TNP CK-MB (CK-2) Rel Index TNP Troponin I < 0.012 Urine Color Yellow Urine Appearance Clear Urine pH 6.0 Ur Specific [place] 1.020 Urine Protein Negative Urine Glucose (UA) Negative Urine Ketones Trace H Urine Occult Blood Negative Urine Nitrate Negative Urine Bilirubin Negative Urine Urobilinogen 0.2 Ur Leukocyte Esterase Negative Urine RBC 0-1/hpf Urine WBC 0-1/hpf Ur Squamous Epith Cells 0-1 /hpf Urine Bacteria Occasional (0-1) Urine Mucus 2+ H Ur Culture Indicated? Cult not indicated Assessment & Plan Assessment & Plan narrative: Patient is being admitted for acute delirium, generalized weakness, and failure to thrive Admitted under observation status. Acute delirium superimposed on dementia, present on admission, active No specific known cause of acute delirium is known at this time. There appears to be no evidence of an acute infection. Patient did have an adjustment in the levodopa-carbidopa medication in the past 1-2 weeks. Consider, hypersensitivity to carbidopa-levadopa. - Neuro check's QShift - Mild leukopenia, but no other overt symptoms of infection. Check CRP, PCT, and respiratory viral panel. - CT head negative for acute intracranial pathology - Electrolytes WNL. No overt metabolic abnormalities. Renal function stable. No evidence of dehydration. No hypoglycemia. No hypoxia. 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 - Resume carbidopa-levadopa 25-100, 1/2 tab TID - Avoid benzodiazepines due to risk of falls, confusion, memory impairment, and oversedation - Obtain records from patient's neurologist, Dr. Mejia Physical deconditioning, acute on chronic, present on admission, active - Consult PT/OT - Fall precautions Moderate malnutrition, acute, present on admission, active BMI 17.7, weight loss 6 lbs in 3 weeks (ie > 5% of patient's baseline weight). Diminished appetite. Diminished physical function. - consult ct scan special procedures technologist H/O hypothyroidism, chronic condition, stable - not on thyroid medication, will check TSH Code status discussed with patient's sister. Patient has a post form. She is said to be DNR. Patient's sister, Eric Dietz is her DPOA. Patient's son, is also patient's DPOA; however, he lives in [place]. Patient's son is set to be involved in patient's decision making. VTE prophylaxis with SCDs.
[2019-06-15] VITALS (7 sets, daily range): BP systolic 135–168; BP diastolic 62–77; PULSE 75–97; RESP 18–26; TEMP 36.8–37.2; O2SAT 95–100
[2019-06-15 00:49] LABS: Thyroid Stimulating Hormone 3.53 uIU/mL (0.47-4.68)
[2019-06-15 01:46] LABS: C-Reactive Protein Quant < 0.5 mg/dL (<1.0)
[2019-06-15 01:56] LABS: Procalcitonin < 0.05 ng/mL (<0.5)
[2019-06-15 03:06] LABS: Adenovirus Not Detected (Not Detect); Bordetella pertussis Not Detected (Not Detect); Chlamydophila pneumoniae Not Detected (Not Detect); Coronavirus 229E Not Detected (Not Detect); Coronavirus HKU1 Not Detected (Not Detect); Coronavirus NL 63 Not Detected (Not Detect); Coronavirus OC43 Not Detected (Not Detect); Human Metapneumovirus Not Detected (Not Detect); Human Rhinovirus/Enterovirus Not Detected (Not Detect); Influenza A Not Detected (Not Detect); Influenza B Not Detected (Not Detect); Mycoplasma pneumoniae Not Detected (Not Detect); Parainfluenza Virus 1 Not Detected (Not Detect); Parainfluenza Virus 2 Not Detected (Not Detect); Parainfluenza Virus 3 Not Detected (Not Detect); Parainfluenza Virus 4 Not Detected (Not Detect); Respiratory Syncytial Virus Not Detected (Not Detect)
--- NOTE | 2019-06-15 05:38 | PC.NURSE ---
Patient's communication is mostly word salad and/or garbled although is able to speak clearly occasionally. Breath sounds CTA with RA sat of 99%. HRR. BP elevated at 163/76 and 159/68. Denies nausea when asked. BT present and abdomen is soft; flat. Incontinent of urine. Assisted to reposition although patient intermittently restless and removed covers/SCD's and making attempts to get up out of bed although very weak. Has abrasion on lower lip. Coccyx is lightly pink but blanchable. Skin is generally dry. Denies pain. Wearing bilateral SCD's. Fall risk score is high and bed alarm is activated.
[2019-06-15] MEDS: CARBIDOPA-LEVODOPA 25/100 TABLET 0.5 EACH PO (10:23)
[2019-06-15] MEDS: SODIUM CHLORIDE 0.9% FLUSH 10 ML IV ×2 (10:25→21:05)
--- NOTE | 2019-06-15 11:37 | DIET.PN ---
Dietary Note Assessment: Mrs. Angulo is admitted for GLF and weakness. This is her 3 fall with ED admission in the last 7 days. She has had a moderate decrease in PO's and severe weight loss. She was unable to share any information regarding her appetite or food intake. States she had education and crackers for breakfast. Per report 6lb weight loss in the last 3 weeks (>5% baseline weight). Mrs Angulo resides at [facility]. 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 Interventions: 1. Unable to obtain pt likes/dislikes. Provide ONS Ensure Enlive BID. 2. Follow Up for diet education and to obtain pt likes. Diet Order: General (sensitive to dairy/wheat) EER: 1200 baltazar @ 30 baltazar/kg Pro: 50 g @ 1.3g/kg Monitoring/Evaluations: Wt, PO's, ONS acceptance.
--- NOTE | 2019-06-15 11:55 | PC.NURSE ---
Addendum entered by Sarita Whitmore R.N. 06/15/19 12:11: Requested three weeks previous medication record from [facility]. They are to fax a copy. Will follow up. Original Note: Patient resting in bed. Not oriented to her birthdate, place or situation. Denies pain but would like to go now. Reoriented patient to situation. Doctor in to see patient and would like us to hold her Sinemet. Acknowledged. IV site flushed, patent, clean and intact. Lung sounds clear, patient denies pain or SOB at this time. Bed alarm on. Daughter at bedside at this time.
--- NOTE | 2019-06-15 14:33 | PM.PN.1 ---
Subjective Subjective Date Patient Seen: 06/15/19 Interval history: Dejan Angulo is an 83-year-old female with past medical history significant for iron deficiency anemia, anxiety, newly diagnosed Parkinson's disease with dementia and behavioral disturbance who presented to the ED from [facility] for further evaluation after being found down on the floor. This is patient's 3rd fall and 3rd ED evaluation in the past 7 days. Previously seen on 06/10 and 06/12. Each ER visit was preceded by a GLF. The patient is very confused and is unable to make a coherent sentence/thought process. Discussed patient's care with both the patient's sister in [place] Dietz and her daughter. Per the report, the patient has been declining over the last year and a half. She has likely had some degree of dementia since 2003. Her dementia has been progressively worsening. She was recently diagnosed with Parkinson's disease by her neurologist Dr. Mejia in April but it is felt that she is had Parkinson's for some time. The patient was started on carbidopa/levodopa Carbidopa/levodopa 25mg-100mg dosing per assisted living facility records and symptomology with progressive worsening confusion and unsteadiness over entire course but more so with increased dose of Carbidopa/levodopa: 1.0 tab, 0.5 tab, 0.5 tab 05/04-05/11 Given at home prior to [facility] to [facility] 0.5 tab BID 05/11-05/17 Incorrect dosing at [facility] 0.5 tab TID 05/18-05/24 Dosing corrected 1.0 tab, 1.5 tab, 1.5 tab 05/25 -06/04 Symptoms worsened 1.0 tab, 0.5 tab, 1.0 tab Dose decreased but continued to have confusion and anxiety 0.5 tab, 0.5 tab, 0.5 tab 06/12 and on Discussed case with patient's neurologist, Dr. Mejia, who recommends discontinuing carbidopa/levodopa and waiting for symptoms to improve over next 1-2 days to establish baseline mentation and function. Plan to touch base with neurologist over next 1-2 days with update on patient's status and further recommendation. His office number is . Patient's dementia may be progressively worsening and hallucinations may actually be part of her dementia versus side effect of carbidopa/levodopa. Exam Vital Signs (past 8 hours): - 06/15/19 07:30 06/15/19 11:45 Temperature 99 F 98.9 F Pulse Rate 97 H 75 Respiratory Rate 26 H 22 Blood Pressure 168/77 H 135/69 Pulse Oximetry 96 97 Oxygen Delivery Method Room Air Oxygen Flow Rate 0 Narrative Exam Narrative: General: Thin cachectic elderly female sitting in bed and in no acute distress, moderately confused and does not make a coherent train of thought. HEENT: Normocephalic, atraumatic. External ears without defect. Pupils equal, round, and reactive to light. Anicteric sclerae, moist conjunctivae, and no lid lag. Oropharynx free of erythema and cobble stoning with moist mucosa. Neck: Supple with full range of motion. No jugular venous distension. No lymphadenopathy or thyromegaly. Cardiovascular: Regular rate and rhythm without murmurs, rubs, or gallops appreciated. Pulmonary: Clear to auscultation bilaterally without crackles, wheezes, or rhonchi. Normal respiratory effort with no use of accessory muscles. Abdomen: Soft, bowel sounds present, nontender, nondistended. No hepatosplenomegaly or masses appreciated. Extremities: No clubbing, cyanosis, or edema. Skin: Normal temperature, turgor, and texture; no rash, ulcers, or subcutaneous nodules appreciated. Neurological: Cranial nerves grossly intact. Moderate to severe generalized weakness. Psychiatric: Patient actively hallucinating. Objective Labs Result Diagrams: 06/14/19 18:40 06/14/19 18:40 Labs: Laboratory Results - last 24 hr 06/14/19 06/14/19 06/14/19 18:40 18:40 18:40 WBC 4.4 L RBC 3.47 L Hgb 11.3 L Hct 33.2 L MCV 95.8 MCH 32.4 MCHC 33.9 RDW 13.2 Plt Count 206 Neut % (Auto) 65.4 Lymph % (Auto) 23.2 L [place] % (Auto) 10.2 Eos % (Auto) 0.3 L Baso % (Auto) 0.9 Neut # (Auto) 2900 Lymph # (Auto) 1000 L [place] # (Auto) 400 Eos # (Auto) 0 Baso # (Auto) 0 Sodium 137 Potassium 4.0 Chloride 105 Carbon Dioxide 25 BUN 21 H Creatinine 1.00 Estimated GFR 52.8 L BUN/Creatinine Ratio 21.0 Glucose 96 Calcium 9.8 Total Creatine Kinase 94 CK-MB (CK-2) TNP CK-MB (CK-2) Rel Index TNP Troponin I < 0.012 C-Reactive Protein Procalcitonin < 0.05 TSH Urine Color Urine Appearance Urine pH Ur Specific [place] Urine Protein Urine Glucose (UA) Urine Ketones Urine Occult Blood Urine Nitrate Urine Bilirubin Urine Urobilinogen Ur Leukocyte Esterase Urine RBC Urine WBC Ur Squamous Epith Cells Urine Bacteria Urine Mucus Ur Culture Indicated? Chlamy pneumoniae PCR Adenovirus (PCR) B.parapertussis DNA PCR Coronavirus OC43 (PCR) Coronavirus HKU1 (PCR) Coronavirus 229E (PCR) Coronavirus NL63 (PCR) Human Metapneumovir PCR Influenza Type A (PCR) Influenza Type B (PCR) M. pneumoniae (PCR) Parainfluenza 1 (PCR) Parainfluenza 2 (PCR) Parainfluenza 3 (PCR) Parainfluenza 4 (PCR) RSV (PCR) Entero/Rhino (PCR) 06/14/19 06/14/19 06/14/19 18:40 18:50 20:30 WBC RBC Hgb Hct MCV MCH MCHC RDW Plt Count Neut % (Auto) Lymph % (Auto) [place] % (Auto) Eos % (Auto) Baso % (Auto) Neut # (Auto) Lymph # (Auto) [place] # (Auto) Eos # (Auto) Baso # (Auto) Sodium Potassium Chloride Carbon Dioxide BUN Creatinine Estimated GFR BUN/Creatinine Ratio Glucose Calcium Total Creatine Kinase CK-MB (CK-2) CK-MB (CK-2) Rel Index Troponin I C-Reactive Protein < 0.5 Procalcitonin TSH 3.53 Urine Color Yellow Urine Appearance Clear Urine pH 6.0 Ur Specific [place] 1.020 Urine Protein Negative Urine Glucose (UA) Negative Urine Ketones Trace H Urine Occult Blood Negative Urine Nitrate Negative Urine Bilirubin Negative Urine Urobilinogen 0.2 Ur Leukocyte Esterase Negative Urine RBC 0-1/hpf Urine WBC 0-1/hpf Ur Squamous Epith Cells 0-1 /hpf Urine Bacteria Occasional (0-1) Urine Mucus 2+ H Ur Culture Indicated? Cult not indicated Chlamy pneumoniae PCR Adenovirus (PCR) B.parapertussis DNA PCR Coronavirus OC43 (PCR) Coronavirus HKU1 (PCR) Coronavirus 229E (PCR) Coronavirus NL63 (PCR) Human Metapneumovir PCR Influenza Type A (PCR) Influenza Type B (PCR) M. pneumoniae (PCR) Parainfluenza 1 (PCR) Parainfluenza 2 (PCR) Parainfluenza 3 (PCR) Parainfluenza 4 (PCR) RSV (PCR) Entero/Rhino (PCR) 06/15/19 01:35 WBC RBC Hgb Hct MCV MCH MCHC RDW Plt Count Neut % (Auto) Lymph % (Auto) [place] % (Auto) Eos % (Auto) Baso % (Auto) Neut # (Auto) Lymph # (Auto) [place] # (Auto) Eos # (Auto) Baso # (Auto) Sodium Potassium Chloride Carbon Dioxide BUN Creatinine Estimated GFR BUN/Creatinine Ratio Glucose Calcium Total Creatine Kinase CK-MB (CK-2) CK-MB (CK-2) Rel Index Troponin I C-Reactive Protein Procalcitonin TSH Urine Color Urine Appearance Urine pH Ur Specific [place] Urine Protein Urine Glucose (UA) Urine Ketones Urine Occult Blood Urine Nitrate Urine Bilirubin Urine Urobilinogen Ur Leukocyte Esterase Urine RBC Urine WBC Ur Squamous Epith Cells Urine Bacteria Urine Mucus Ur Culture Indicated? Chlamy pneumoniae PCR Not detected Adenovirus (PCR) Not detected B.parapertussis DNA PCR Not detected Coronavirus OC43 (PCR) Not detected Coronavirus HKU1 (PCR) Not detected Coronavirus 229E (PCR) Not detected Coronavirus NL63 (PCR) Not detected Human Metapneumovir PCR Not detected Influenza Type A (PCR) Not detected Influenza Type B (PCR) Not detected M. pneumoniae (PCR) Not detected Parainfluenza 1 (PCR) Not detected Parainfluenza 2 (PCR) Not detected Parainfluenza 3 (PCR) Not detected Parainfluenza 4 (PCR) Not detected RSV (PCR) Not detected Entero/Rhino (PCR) Not detected Assessment & Plan Assessment & Plan narrative: Dejan Angulo is an 83-year-old female with past medical history significant for iron deficiency anemia, anxiety, newly diagnosed Parkinson's disease with dementia and behavioral disturbance who presented to the ED from [facility] for further evaluation after being found down on the floor. This is patient's 3rd fall and 3rd ED evaluation in the past 7 days. Previously seen on 06/10 and 06/12. Each ER visit was preceded by a GLF. 1. Acute delirium/toxic encephalopathy superimposed on dementia, present on admission, active -Secondary to medications including carbidopa/levodopa which can cause hallucinations, as well as, lorazepam as confusion/hallucinations severely worsened since prescribed 06/12. Also possibly dementia advancing as patient has had longstanding dementia since 2003 per family. -No evidence of an acute infection. Mild leukopenia, procalcitonin negative, respiratory viral PCR negative, urinalysis negative. -Continue neuro check's every shift. -CT brain did not demonstrate any acute intracranial abnormalities. -No metabolic derangement and electrolytes within normal limits. Renal function stable. No evidence of dehydration. No hypoglycemia. No hypoxia. -Discontinued lorazepam indefinitely. -Carbidopa/levodopa 25mg-100mg dosing per assisted living facility records and symptomology with progressive worsening confusion/hallucinations and unsteadiness over entire course but more so with increased dose of Carbidopa/levodopa: 1.0 tab, 0.5 tab, 0.5 tab 05/04-05/11 Given at home prior to [facility] to [facility] 0.5 tab BID 05/11-05/17 Incorrect dosing at [facility] 0.5 tab TID 05/18-05/24 Dosing corrected 1.0 tab, 1.5 tab, 1.5 tab 05/25 -06/04 Worsening confusion/hallucinations 1.0 tab, 0.5 tab, 1.0 tab Dose decreased but continued to have confusion/hallucinations and anxiety 0.5 tab, 0.5 tab, 0.5 tab 06/12 Decreased dose again for continued to have confusion/hallucinations and anxiety -Lorazepam dosin.5 mg TID as needed for anxiety 06/12 Worsening confusion/hallucinations -Discussed case with patient's neurologist, Dr. Mejia, who recommends discontinuing carbidopa/levodopa and waiting for symptoms to improve over next 1-2 days to establish baseline mentation and function. Plan to touch base with neurologist over next 1-2 days with update on patient's status and further recommendation. His office number is . Patient's dementia may be progressively worsening and hallucinations may actually be part of her dementia versus side effect of carbidopa/levodopa. 2. 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 Active. -Implement non-pharmacologic measures including:Re-orient frequently, avoid environmental triggers, anticipate needs, consistent bowel regimen, avoid day-time naps, minimize sleep disturbances. -Avoid benzodiazepines due to risk of falls, confusion, memory impairment, and oversedation. 3. Acute on chronic generalized weakness with physical deconditioning, present on admission. Active. -Ordered physical and occupational therapy evaluation and treatment, pending. -Continue fall precautions. 4. Acute on chronic severe protein calorie malnutrition with failure to thrive, present on admission. Active. -BMI 17.7, weight loss 6 lbs in 3 weeks (ie > 5% of patient's baseline weight). Diminished appetite. Diminished physical function. -Consulted dietitian and we appreciate her time and recommendations. 5. History of hypothyroidism. -Patient is no longer medically treated for hypothyroidism. Possible sick thyroid syndrome? -TSH within normal limits at 3.53. Disposition: Patient remains inpatient and will likely need halfway facility for rehabilitation before placement at long-term memory care facility.
--- NOTE | 2019-06-15 15:07 | CM.DANOTE ---
DCP Assesment: EMR reviewed. Patient is an 83 yr old Female with a History of Parkinson and dementia. PT was admitted to for GLF and weakness. Patient has a history of 3 falls in the last seven days. Met with patient at bed side along with daughter- Lisbet and sister Eric (DPOA) explained CM/RN role. Patient is currently residing at [facility]. Dr. Hollins stated that patient will need increased support at current facility or need SNF to help with rehab once patient is medically stable . PT and OT evaluation was conducted to determine if at discharge patient would be able to return to [facility] or go to SNF. Pending PT and OT needs at time of discharge. [facility] was contacted and will asses patient to determine placement. Insurance : 1st payer: Medicare 2nd payer: [employer]. Discharge plan. discharge plan is to either go to [facility] or return to [facility] once patient is medically stable. location is dependent on patients medical needs which are to be determined. Family reports Patient is currently on the list for [facility] memory care and provided them with information about [facility] memory care as well. D/C plan to be determined. Bernie Beach RN Discharge Planning/Care Management CM Discharge Assessment Start: 06/15/19 15:01 Freq: Status: Active Protocol: Document 06/15/19 15:02 (Rec: 06/15/19 15:06 [id number]) Discharge Planning Assessment Assigned F[employer]ted [employer] Inspector Bernie Beach RN DPOA/Assigned Designee Name Eric Dietz ( Sister) Contact Information [phone] Advance Directives? Yes: POLST History Provided By Family Member,Medical Record Prior Living Arrangements Assisted Living Household Members none Type of transporation used prior to Relies on Others admit Facility Name Admitted From: [facility] Willing to Return to Facility? Yes Independent with ADL's No Is patient alert and oriented? No Needs Assistance With Bathing,Grooming,Meal Prep, Toileting,Managing Medications Caregiver for Another No DME Already Rented / Owned FWW / Walker,Cane Patient/Family Preference Senior Living Facility Discharge Plan Senior Living Facility Referrals Initiated Senior Living Additional Comment [facility] contacted and reviewing pt If patient plan is home with home health No : Has signed face to face form been completed? Contact Name/Phone [facility] - spoke to admissions- February [phone] Has Agency SNF been contacted Yes Whiteboard Updated in Patient Room with Yes name and ext. # of Fretted [employer] Inspector Review Status In Process Next Review Type Continued Stay Review
--- NOTE | 2019-06-15 15:44 | PT.IPTN ---
Physical Therapy Treatment Note M3 PT-IP Subjective Start: 06/15/19 10:38 Freq: NEEDED Status: Active Protocol: Document 06/15/19 15:43 RS (Rec: 06/15/19 15:44 RS [id number]) Subjective Physical Therapy Visit Type Type Administrative Note Notes Attempted in AM and PM, pt currently not really following commands and once she did mobilize with OT, pt immediately goes into extensor synergy pattern. Will hold PT eval until pt is more appropriate to participate.
--- NOTE | 2019-06-15 15:49 | OT.IP.TRT ---
Occupational Therapy Treatment Note M2 OT-IP Current Condition Start: 06/15/19 14:12 Freq: Status: Active Protocol: Document 06/15/19 15:07 [facility] (Rec: 06/15/19 15:49 [facility] [id number]) Occupational Therapy Current Condition Current Condition Evaluation Date 06/15/19 Treatment Diagnosis Acute delirium superimposed on dementia/GLF, weakness Weight Bearing Status Weight Bearing Status Weight Bear as Tolerated M3 OT- IP Subjective and Pain Start: 06/15/19 14:12 Freq: Status: Active Protocol: Document 06/15/19 15:07 [facility] (Rec: 06/15/19 15:49 [facility] [id number]) OT- Subjective Occupational Therapy Visit Type Type Initial Evaluation Visit Start Time 13:35 Visit Stop Time 14:04 Total Visit Minutes 29 Occupational Therapy Visit Comments Patient Comments Pt not able to answer questions when asked. Pt only orientated to name at this time. Pt's sister present for OT eval. OT Pain Assessment Pain When Pain Assessed At Rest Pain Present Pain Present Unable to Respond FLACC Pain Scale Face No particular expression M4 OT- IP ADL's Start: 06/15/19 14:12 Freq: Status: Active Protocol: Document 06/15/19 15:07 [facility] (Rec: 06/15/19 15:49 [facility] [id number]) OT ADL-Toileting General Evaluation Toileting Ability Total Assistance Areas Needing Assistance Manage Clothing,Perform Perineal Hygiene Devices Toileting Assistive Devices Commode Comments OT Toileting Comments MAX A x1 to stand with pt and another person to assist for hygiene. Brief management dependent after transfer back to bed. OT ADL-Bathing Comments OT Bathing Comments sponge bath more appropriate at this time. M5 OT- IP IADL's Start: 06/15/19 14:12 Freq: Status: Active Protocol: Document 06/15/19 15:07 [facility] (Rec: 06/15/19 15:49 [facility] [id number]) OT-Instrumental Activities of Daily Living Home Safety Awareness Awareness of Need for Assistance at Home Decreased Awareness Ability to Problem Solve Emergency Unable to Problem Solve Situations Home Safety Comments Pt not aware to use call light in the room and only orientated to name at this time. Suggested to nursing to do frequent check on the pt. Pt per sister usually trying to get out of bed when she is wet. Medication Management Medication Management Caregiver Administers Money Management Money Management Caregiver Provides Assistance Meal Preparation Meal Preparation Caregiver Provides Assist Meal Preparation Comments Pt walks to her meals at her facility. M6 OT- IP Functional Cognition Start: 06/15/19 14:12 Freq: Status: Active Protocol: Document 06/15/19 15:07 [facility] (Rec: 06/15/19 15:49 [facility] [id number]) Cognitive Factors Limiting Selfcare Function Cognitive Ability Level of Alertness Alert,Confusional State Patient Orientation Name Attention Span Ability Capable of Focused Attention, Unable to Sustain Attention Ability to Follow Commands Able to Follow One Step Commands with Increased Time, Able to Follow One Step Commands with Repetition Memory Description Short Term Impaired,Shelter Impaired,Working Impaired Safety Awareness Underestimates Need for Assistance Cognitive Comments Cognitive Assessment Comments Pt just orientated to name at this time. Pt unable to states needs, pt unaware that she was wet and needing to be changed and pt not aware that she is in the hospital. Pt needing step by step instructions along with tactile cues for transfer with therapist. OT- Vision and Hearing OT- Hearing Assessment OT- Hearing Assessment Hearing Impaired OT- Vision Assessment Visual Acuity Glasses For Reading Vision Assessment Comments Per pt's sister has hearing aids but does not use them. Pt has reading glasses. When asked what time it was pt able to stated 1 after 2, actually time 1404pm. M7 OT- IP Mobility and Balance Start: 06/15/19 14:12 Freq: Status: Active Protocol: Document 06/15/19 15:07 [facility] (Rec: 06/15/19 15:49 [facility] [email or web address]) OT- Bed Mobility Assessment Rolling Type of Rolling Roll to Left Supine to Sit Supine to Sit Assist Maximum Assistance,1 Person Assistance Scooting Scooting to Edge of Bed Maximum Assistance,1 Person Assistance OT-Transfer Assessment Sit to and From Stand Sit to and from Stand Maximum Assistance,1 Person Assistance,2 Person Assistance Transfers Transfer Ability Maximum Assistance,1 Person Assistance,2 Person Assistance Technique Transfer Destination Bed,Bedside Commode Transfer Technique Stand Step Pivot Devices Transfer Assistive Devices None,Gait Belt Comments Mobility Comments When asking pt to get out of bed, pt able to initiate getting her left leg to the edge of the bed along with right leg to the middle of the bed. Pt trying to get trunk upright but unable, and trying to reach her hand out to have therapist assist. Pt needing MAX A to get trunk upright and MODA to help get her legs out and off the edge of the bed. Pt MAX A to sit at edge of bed as leaning into posterior tilt and legs extending out. Therapist having to block her feet to ensure pt from sliding out of the bed.MAX A X 1 to stand and another person to assist for stand pivot to [facility]. Per nursing stated during transfer that noted pt mainly standing on her toes. OT- Gait Assessment Comments Gait Ability Comments Not appropriate for gait at this time. OT- Balance Assessment Sitting Balance and Reactions Static Sitting Balance Ability Fair Standing Balance and Reactions Static Standing Balance Ability Poor Comments Other Balance Tests/Deviations/Treatment Pt sitting at edge of bed poor : - especially when not able to get her feet all the way down to the floor. Pt very fearful of falling and leaning backwards. Pt MERCEDES to close SBA while sitting on the BSC when feet flat on the floor and able to hold to [facility] armrests for balance. M8 OT- IP Objective Assessments Start: 06/15/19 14:12 Freq: Status: Active Protocol: Document 06/15/19 15:07 [facility] (Rec: 06/15/19 15:49 [facility] [id number]) OT Gross Range of Motion Upper Extremity Range of Motion Assessment Within Functional Limits OT Strength Comments Strength Comments BUE RUE4-/5, LUE 4/5 OT- Coordination Assessment Upper Extremity Finger to Nose Test Within Functional Limits M9 OT- IP Assessment and Plan Start: 06/15/19 14:12 Freq: Status: Active Protocol: Document 06/15/19 15:07 [facility] (Rec: 06/15/19 15:49 [facility] [id number]) OT Summary Assessment and Plan Potential Rehabilitation Potential Fair Analytic Complexity at Evaluation Moderate Summary OT Impairments Strength,Balance,Functional Cognition,Functional Mobility, Grooming,Dressing,Toileting, Bathing,Toilet Transfers, Shower Transfers Progress Towards Goals Slow Progress due to Medical Issues,Slow Progress due to Activity Tolerance,Slow Progress due to Cognition Assessment Summary Pt MOD complexity now needing MAX AX2 for all ADL and functional mobility needs. Pt has poor dynamic and static balance. Pt has had 3 falls in the past 7 days. Pt is far from baseline and prior able to walk without any device and able to do all dressing, toileting, and grooming needs independently. At this time recommend skilled rehab prior to going home. Goals Grooming Goal Standby Assistance Dressing Goal Standby Assistance Toileting Goal Standby Assistance Toilet Transfer Goal Minimal Assistance Patient/Caregiver Education Goal Caregiver Independent Assisting Patient Days to Meet Goals 10 Frequency of Treatment Frequency Of Treatment Once a Day Treatment Plan OT Treatment Plan ADL Training,Functional Cognition Training,Functional Mobility,Patient/Family Education,Discharge Planning Other Treatment Recommendations and Next Groming while sitting at edge Treatment Focus of bed MERCEDES. Discharge Recommendations OT Discharge Recommendations SNF Rehab Home Equipment Needs Defer to skilled rehab
[2019-06-16] VITALS (8 sets, daily range): BP systolic 104–141; BP diastolic 50–81; PULSE 80–88; RESP 14–20; TEMP 36.8–37.2; O2SAT 93–97
--- NOTE | 2019-06-16 10:43 | OT.IP.TRT ---
Current Diagnoses Disorientation, unspecified (06/14/19) Occupational Therapy Treatment Note M2 OT-IP Current Condition Start: 06/15/19 14:12 Freq: Status: Active Protocol: Document 06/15/19 15:07 [facility] (Rec: 06/15/19 15:49 [facility] [email or web address]) Occupational Therapy Current Condition Current Condition Evaluation Date 06/15/19 Treatment Diagnosis Acute delirium superimposed on dementia/GLF, weakness Weight Bearing Status Weight Bearing Status Weight Bear as Tolerated M3 OT- IP Subjective and Pain Start: 06/15/19 14:12 Freq: Status: Active Protocol: Document 06/16/19 10:43 [facility] (Rec: 06/16/19 16:02 [facility] [id number]) OT- Subjective Occupational Therapy Visit Type Type Treatment Note Visit Start Time 09:57 Visit Stop Time 10:43 Total Visit Minutes 46 Notes Pt's daughter observing this session. Occupational Therapy Visit Comments Patient Comments pt answering questions with single words, short phrases Patient/Caregiver Goals pt unable to verbalize goals due to confusion OT Pain Assessment Pain When Pain Assessed After Treatment Pain Present Pain Present Pain Reported FLACC Pain Scale Face Occasional grimace/frown Legs Uneasy, restless, tense Activity Squirming,shifting Cry No cry (awake or asleep) Consolability Reassurable with touch FLACC Total 4 Location Lower Back Intensity 4 Scale Used FLACC Description Aching Pain Behaviors Facial Grimacing,Guarding Management Techniques Distraction,Re-positioning M4 OT- IP ADL's Start: 06/15/19 14:12 Freq: Status: Active Protocol: Document 06/16/19 10:43 [facility] (Rec: 06/16/19 16:02 [facility] [id number]) OT LGG-[id number]-Gqrfgul General Evaluation Self-Feeding Ability Total Assistance Comments OT Self-Feeding Comments daughter fed pt this morning OT ADL-Grooming General Evaluation Grooming Ability Minimal Assistance,Moderate Assistance Areas Needing Assistance Retrieving/Set-up of Grooming Items,Combing/Brushing Hair, Face Washing Comments OT Grooming Comments min assist with face washing and mod assist with brushing hair OT ADL-Oral Care General Eval Oral Care Ability Moderate Assistance Areas of Assistance Retrieving/Set-Up of Items Devices Oral Care Devices Toothbrush Comments Oral Care Comments pt needs min assist for thoroughness; daughter to bring in pt's electric toothbrush OT ADL-Dressing General Eval Lower Body Dressing Ability Total Assistance Areas Needing Assistance Socks OT ADL-Toileting General Evaluation Toileting Ability Total Assistance Areas Needing Assistance Manage Clothing,Perform Perineal Hygiene Comments OT Toileting Comments pt has incontinent brief on OT ADL-Bathing Bathing Type Bathing Type Bed Bath General Evaluation Bathing Ability Total Assistance M6 OT- IP Functional Cognition Start: 06/15/19 14:12 Freq: Status: Active Protocol: Document 06/16/19 10:43 [facility] (Rec: 06/16/19 16:02 [facility] [id number]) Cognitive Factors Limiting Selfcare Function Cognitive Ability Level of Alertness Confusional State Patient Orientation Name Attention Span Ability Capable of Focused Attention, Unable to Sustain Attention Ability to Follow Commands Able to Follow One Step Commands with Increased Time, Able to Follow One Step Commands with Repetition Memory Description Immediate Impaired,Short Term Impaired Safety Awareness Decreased Recall of Precautions,Decreased Ability to Apply Precautions, Underestimates Need for Assistance Problem Solving Ability Unable to Identify Errors, Needs Assist to Identify Solutions Executive Function Ability Unable to Filter Distractions, Unable to Make Plans,Unable to Organize Plans,Unable to Remember Details,Unable to Integrate Past Experience With Present Action Abstract Thinking Ability Unable to Use Concepts,Unable to Make Generalizations,Unable to Understand Generalizations ,Unable to Draw Logical Conclusions,Unable to Be Adaptable in Thinking,Unable to Apply Concepts to New Surroundings,Unable to Apply Concepts to New Situations Cognitive Comments Cognitive Assessment Comments Pt oriented to self and recognizes and names daughter, but calls her sister. Pt does follow one step commands and participate in simple self care tasks today after set up . OT- Vision and Hearing OT- Vision Assessment Vision Assessment Comments pt unable to read clock due to confusion M7 OT- IP Mobility and Balance Start: 06/15/19 14:12 Freq: Status: Active Protocol: Document 06/16/19 10:43 [facility] (Rec: 06/16/19 16:02 [facility] [id number]) OT- Bed Mobility Assessment Rolling Type of Rolling Roll to Right,Roll to Left Level of Assistance Maximum Assistance,1 Person Assistance Supine to Sit Supine to Sit Assist Maximum Assistance,1 Person Assistance,Head of Bed Elevated,Bedrails Sit to Supine Sit to Supine Assist Maximum Assistance,2 Person Assistance Scooting Scooting to Edge of Bed Maximum Assistance,1 Person Assistance Scooting Up and Down in Bed Total Assistance,2 Person Assistance OT-Transfer Assessment Sit to and From Stand Sit to and from Stand Maximum Assistance,1 Person Assistance Comments Mobility Comments Pt has strong extensor pattern with posterior lean sitting on edge of bed and very fearful of falling. Pt unable to come to full stand. OT- Gait Assessment Comments Gait Ability Comments pt unable to ambulate at present OT- Balance Assessment Sitting Balance and Reactions Static Sitting Balance Ability Poor Dynamic Sitting Balance Ability Poor Standing Balance and Reactions Static Standing Balance Ability Poor Dynamic Standing Balance Ability Poor M9 OT- IP Assessment and Plan Start: 06/15/19 14:12 Freq: Status: Active Protocol: Document 06/16/19 10:43 [facility] (Rec: 06/16/19 16:02 [facility] [id number]) OT Summary Assessment and Plan Summary OT Impairments Pain,Strength,Balance, Coordination,Functional Cognition,Functional Mobility, Self-Feeding,Grooming,Dressing ,Toileting,Bathing,Toilet Transfers,Shower Transfers Progress Towards Goals Slow Progress due to Activity Tolerance,Slow Progress due to Cognition Assessment Summary Pt oriented to self and recognizes her daughter today. She does follow one step commands with increased time and repetition. Pt verbalizing in short phrases, but conversation still confused/ tangential at times. Pt able to participate in simple grooming tasks today after set up as described above. Pt remains max assist of 1-2 for bed mobility with very poor sitting balance noted. Pt has strong extensor pattern and posterior lean when sitting edge of bed and very fearful of falling. Currently recommend SNF at d/c due to pt's high care needs. Will continue OT services per plan of care. Goals Grooming Goal Standby Assistance Dressing Goal Standby Assistance Toileting Goal Standby Assistance Toilet Transfer Goal Minimal Assistance Patient/Caregiver Education Goal Caregiver Independent Assisting Patient Days to Meet Goals 10 Frequency of Treatment Frequency Of Treatment Once a Day Treatment Plan OT Treatment Plan ADL Training,Functional Cognition Training,Functional Mobility,Patient/Family Education,Discharge Planning Discharge Recommendations OT Discharge Recommendations SNF Rehab Home Equipment Needs Defer to skilled rehab
--- NOTE | 2019-06-16 10:52 | PT.IIE ---
Current Diagnoses Disorientation, unspecified (06/14/19) Medical History (Last Reviewed 06/12/19 @ 13:05 by Jd Coombs DO) H/O: hysterectomy (Acute) Hypothyroidism (Chronic Unknown) Osteopenia (Chronic Unknown) Physical Therapy Inpatient Evaluation/Re-Eval M1 PT/OT-IP Prior Functional Status Start: 06/15/19 14:12 Freq: NEEDED Status: Active Protocol: Document 06/16/19 10:52 AB (Rec: 06/16/19 12:55 AB [email or web address]) Medical Review Prior Functional Status Medical History Reviewed Yes Communication pt does not verbalize much but able to answer with one word when asked but not consistent. Mobility and Gait per daughter: pt is modified independent with all mobilities and ambulation using a SPC on and off depending if pt remembers to use it or not. Activities of Daily Living and IADL's daughter stated that pt is modified independent with all mobilities but has a caregiver that comes in to assist her when needed and has somebody that assists her with her showers. Prior Functional Level (Other details) per daughter: pt has 3 falls for the last week Social History Household Members none Living Arrangements Assisted Living Number of Stairs To Enter/Railing? pt lives at [facility] Environment High Toilet,Walk in Shower Home Equipment Straight Cane,Grab Bars In Shower M2 PT-IP Current Condition Start: 06/15/19 10:38 Freq: NEEDED Status: Active Protocol: Document 06/16/19 10:52 AB (Rec: 06/16/19 12:55 AB [email or web address]) Physical Therapy Current Condition Current Condition Evaluation Date 06/16/19 Treatment Diagnosis GLF; parkinson's disease; difficulty in walking Onset Date 06/14/19 Precautions Other Precautions falls M3 PT-IP Subjective Start: 06/15/19 10:38 Freq: NEEDED Status: Active Protocol: Document 06/16/19 10:52 AB (Rec: 06/16/19 12:55 AB [email or web address]) Subjective Physical Therapy Visit Type Type Initial Evaluation Visit Start Time 10:52 Visit Stop Time 11:17 Total Visit Minutes 25 Number of [employer] OPERATOR Visits 0 Physical Therapy Visit Comments Patient Comments pt agreed to get out of bed. daughter in room with pt. M4 PT-IP Mobility and Gait Start: 06/15/19 10:38 Freq: NEEDED Status: Active Protocol: Document 06/16/19 10:52 AB (Rec: 06/16/19 12:55 AB [email or web address]) PT-Bed Mobility Assessment Supine to Sit Supine to Sit Total Assistance,1 Person Assistance Scooting Scooting to Edge of Bed Maximum Assistance PT-Transfer Assessment Sit to and From Stand Sit to and from Stand Maximum Assistance,1 Person Assistance,2 Person Assistance ,Use of Upper Extremities Equipment Transfer Assistive Device Gait Belt,Front Wheeled Walker Orthotic/Prosthetic Devices or Brace: No Transfers Transfer Destination Chair Transfer Technique Stand Step Pivot Transfer Ability Level of Assist Maximum Assistance,1 Person Assistance,2 Person Assistance ,Use of Upper Extremities Comments Mobility Comments pt completed supine to sit total A x 1 and max cues. pt with increase posterior leaning and extensor tone/ guarding requiring assist and max cues to keep trunk forward . pt completed sit to stand max A x 1-2 and max cues and completed stand step transfer using FWW max A x 1-2 and max cues bed to chair. pt agreed to do some ambulation and completed ~ 5 ft using FWW max A x 1-2 and max cues. pt positioned on chair. call light and table placed within reach. chair alarm on. left pt with daughter in room. Gait Assessment Gait Gait Assistance Required: Maximum Assistance,1 Person Assist,2 Person Assist Distance (Feet) 5 Able to Maintain Weight Bearing Status Yes During Gait Assistive Devices Assistive Device Gait Belt,Front Wheeled Walker Orthotic/Prosthetic Devices or Brace: No Gait Deviations General Gait Pattern Decreased Stride Length, Decreased Feet Clearance,Step- to Gait Factors Limiting Gait Function Factors Limiting Gait Function Abnormal Tonal Influences, Decreased Activity Tolerance, Decreased Strength,Difficulty Following Directions, Incoordination,Limited Range of Motion,Poor Balance,Poor Safety Awareness Comments Gait Comments pt with increase posterior trunk leaning and rigidity affecting mobility. PT-Balance Assessment Sitting Balance and Reactions Static Sitting Balance Ability Fair Dynamic Sitting Balance Ability Poor Standing Balance and Reactions Static Standing Balance Ability Poor Dynamic Standing Balance Ability Poor Device Used FWw M5 PT-IP Objective Assessments Start: 06/15/19 10:38 Freq: NEEDED Status: Active Protocol: Document 06/16/19 10:52 AB (Rec: 06/16/19 12:55 AB [email or web address]) Orientation Orientation/Cognition Level of Alertness Alert Orientation Name Safety Awareness Decreased Safety Awareness Gross Range of Motion Lower Extremity ROM Assessment Within Functional Limits Impairments increase extensor tone noted Strength Lower Extremity Strength Assessment Bilaterally Impaired Hip 3+/5 Knee 3+/5 Muscle Tone Muscle Tone WNL No Muscle Tone Location Bilateral Lower Extremity Type of Tone Rigidity,Extensor Severity of Tone Moderate M6 PT-IP Treatment Start: 06/15/19 10:38 Freq: NEEDED Status: Active Protocol: Document 06/16/19 10:52 AB (Rec: 06/16/19 12:55 AB [email or web address]) Physical Therapy Treatment Exercises Exercises Heel Slides Education Education Provided Safety M7 PT-IP Assessment and Plan Start: 06/15/19 10:38 Freq: NEEDED Status: Active Protocol: Document 06/16/19 10:52 AB (Rec: 06/16/19 12:55 AB [email or web address]) PT Summary Assessment and Plan Potential Rehabilitation Potential Fair Status of Condition at Evaluation Evolving Summary Impairments Pain,ROM,Strength,Balance, Coordination,Sensation,Tone, Cognition,Bed Mobility, Transfers,Gait,Activity Tolerance Assessment Summary pt requiring max A x 1-2 with transfers and total A with bed mobility. pt with increase rigidity/extensor tone affecting mobility and level of assistance. pt will require SNF rehab to improve mobility. Goals Bed Mobility Goal Contact Guard Assistance Transfer Goal Contact Guard Assistance,Front Wheeled Walker Gait Goal Contact Guard Assistance,Front Wheel Walker Gait Distance 100 Days to Meet Goals 10 Frequency of Treatment Frequency Of Treatment Once a Day Treatment Plan Physical Therapy Treatment Plan Bed Mobility Training,Transfer Training,Gait Training, Therapeutic Exercise,Balance Retraining,Discharge Planning, Hot or Cold Pack,Neuromuscular Re-ed,Coordination Retraining ,Manual Therapy Other Recommendations and Next Treatment transfers, sitting/standing Focus balance/tolerance, ambulation Recommendations To Nursing Amount of Assist Needed 2 Person Assist Discharge Recommendations PT Discharge Recommendations SNF Rehab
--- NOTE | 2019-06-16 10:53 | PM.PN.1 ---
Subjective Subjective Date Patient Seen: 06/16/19 Interval history: The patient is an 83-year-old female with a history of dementia with a relatively new diagnosis of Parkinson's disease who had been slowly titrated on her carbidopa levodopa over the summer. The patient presented to the hospital with increasing confusion, visual hallucinations, agitation. There was some concern that the carbidopa levodopa may have contributed to her symptomatology. The patient has since been taken off those medications. And overnight she has had some improvement in that she is more alert and responsive. She is able to recognize her daughter but does appear to continue to be confused. I discussed her care with Dr. Mejia. He concurs with discontinuation of the levodopa. It is felt that this may not be an allergy but rather Timothy is a dental with other underlying conditions. The patient was able to eat most of her meals today. She will be working with physical therapy and occupational therapy. We will continue to hold the levodopa and observe her continued improvement. Exam Vital Signs (past 8 hours): - 06/16/19 06:00 06/16/19 07:50 Temperature 98.3 F Pulse Rate 86 Respiratory Rate 20 Blood Pressure 134/77 Pulse Oximetry 97 97 Oxygen Delivery Method Room Air Oxygen Flow Rate 0 Narrative Exam Narrative: Elderly female lying in bed confused but awake and alert Lungs: Clear to auscultation Cardiac exam: Regular rate and rhythm normal S1-S2 with a 2/6 systolic ejection murmur Abdomen: Soft nontender nondistended Extremities: No edema Neuro exam: Patient does have bilateral rigidity. She is confused. She is awake, she does respond appropriately, however she appears to be having conversation which is an appropriate. She does not answer questions directly. Her daughter is at the bedside and reports that her mom is able to recognize her today which is different from yesterday. Objective Labs Result Diagrams: 06/14/19 18:40 06/14/19 18:40 Assessment & Plan Assessment & Plan narrative: 1. Acute metabolic encephalopathy, etiology unclear, perhaps a combination of medications and her underlying dementia. At this time will continue to hold her levodopa at the request of her neurologist. 2. Acute delirium, improving. Will defer lorazepam despite history of anxiety. It appears at the lorazepam may have made her somewhat worse. 3. Anxiety, will continue to observe hold on benzodiazepines at this time 4. Generalized weakness, will continue physical therapy and occupational therapy. The patient was a maximum 2 person assist yesterday. Hopefully with time and therapy she will improved. She may require skilled care at discharge versus returning to her assisted living facility. 5. Severe protein calorie malnutrition, patient's BMI is less than 18 kilograms/meter squared. She was able to eat most of her meals today but remains malnourished
[2019-06-16] MEDS: SODIUM CHLORIDE 0.9% FLUSH 10 ML IV ×2 (12:28→21:09)
--- NOTE | 2019-06-16 13:51 | PC.NURSE ---
Pt. continues to be confused with altered LOC. Therapy with both PT and OT today. PT successful in getting patient to stand, transfer to chair, and walk a few steps with assistance and FWW. Pt. oriented to name and , when asked age, pt. replied 37, and confused daughter (present) with sister (not present). Patient very cooperative and pleasant, daughter reports improvement from yesterday.
[2019-06-16] MEDS: ACETAMINOPHEN 325 MG TABLET 975 MG PO (19:42)
[2019-06-17 01:00] VITALS: BP 129/51; PULSE 62; RESP 20; TEMP 36.3; O2SAT 97
[2019-06-17 03:26] VITALS: O2SAT 97
[2019-06-17 06:00] VITALS: BP 114/58; PULSE 69; RESP 17; TEMP 36.8; O2SAT 98
[2019-06-17] MEDS: ENOXAPARIN 30 MG/0.3 ML SYRINGE SUBCUT (08:18)
[2019-06-17 09:00] VITALS: O2SAT 96
--- NOTE | 2019-06-17 09:28 | OT.IP.TRT ---
Current Diagnoses Disorientation, unspecified (06/14/19) Occupational Therapy Treatment Note M2 OT-IP Current Condition Start: 06/15/19 14:12 Freq: Status: Active Protocol: Document 06/15/19 15:07 CCC (Rec: 06/15/19 15:49 CCC [email or web address]) Occupational Therapy Current Condition Current Condition Evaluation Date 06/15/19 Treatment Diagnosis Acute delirium superimposed on dementia/GLF, weakness Weight Bearing Status Weight Bearing Status Weight Bear as Tolerated M3 OT- IP Subjective and Pain Start: 06/15/19 14:12 Freq: Status: Active Protocol: Document 06/17/19 09:28 PJM (Rec: 06/17/19 15:07 PJM [email or web address]) OT- Subjective Occupational Therapy Visit Type Type Treatment Note Visit Start Time 09:45 Visit Stop Time 09:28 Total Visit Minutes 43 Notes Pt awake and lert in bed with breakfast tray in room when therapist arrived. Pt agreeable to tx. Occupational Therapy Visit Comments Patient Comments What do I do now? Patient/Caregiver Goals pt unable to verbalize goal due to confusion OT Pain Assessment Pain When Pain Assessed After Treatment Pain Present Pain Present Denied Pain M4 OT- IP ADL's Start: 06/15/19 14:12 Freq: Status: Active Protocol: Document 06/17/19 09:28 PJM (Rec: 06/17/19 15:07 PJM [email or web address]) OT [id number] General Evaluation Self-Feeding Ability Standby Assistance Areas Needing Assistance Cutting Food,Opening Containers Comments OT Self-Feeding Comments Pt needs complete meal tray setup, removal of distracting items from tray and TV off during meal to focus attention on task. Pt needs mod verbal cues to problem solve utensil use and whether to eat items with her fingers (kevin) or use utensil (scrambled eggs and potatoes). Once utensil placed in pt's hand, she was SBA. No signs or symptoms of aspiration noted. OT ADL-Grooming General Evaluation Grooming Ability Standby Assistance,Moderate Assistance Areas Needing Assistance Combing/Brushing Hair,Face Washing Comments OT Grooming Comments Improved thoroughness of face washing noted today. Pt asking for assist to brush back of head today. OT ADL-Oral Care General Eval Oral Care Ability Standby Assistance Areas of Assistance Brushing Teeth Devices Oral Care Devices Electric Toothbrush Comments Oral Care Comments Mod verbal cues to turn her own electric toothbrush on/off . OT ADL-Toileting General Evaluation Toileting Ability Standby Assistance Areas Needing Assistance Perform Perineal Hygiene Devices Toileting Assistive Devices Commode Comments OT Toileting Comments after urination on BSC, lowered commode height due to pt's height M6 OT- IP Functional Cognition Start: 06/15/19 14:12 Freq: Status: Active Protocol: Document 06/17/19 09:28 PJM (Rec: 06/17/19 15:07 PJM [email or web address]) Cognitive Factors Limiting Selfcare Function Cognitive Ability Level of Alertness Alert Patient Orientation Name,Place Attention Span Ability Capable of Focused Attention, Capable of Sustained Attention Ability to Follow Commands Able to Follow One Step Commands with Increased Time Memory Description Short Term Impaired Safety Awareness Decreased Recall of Precautions,Underestimates Need for Assistance Problem Solving Ability Unable to Identify Errors, Needs Assist to Identify Solutions Cognitive Comments Cognitive Assessment Comments Pt more alert with brighter affect today, and faster speed of processing noted. She was joking at end of session. Pt less fearful of falling today. OT- Vision and Hearing OT- Vision Assessment Vision Assessment Comments pt still confused about hand placement on clock M7 OT- IP Mobility and Balance Start: 06/15/19 14:12 Freq: Status: Active Protocol: Document 06/17/19 09:28 PJ (Rec: 06/17/19 15:07 PJ [email or web address]) OT- Bed Mobility Assessment Rolling Type of Rolling Roll to Left Level of Assistance Moderate Assistance,1 Person Assistance,Bedrails Supine to Sit Supine to Sit Assist Minimal Assistance,1 Person Assistance,Head of Bed Elevated,Bedrails Scooting Scooting to Edge of Bed Maximum Assistance,1 Person Assistance OT-Transfer Assessment Sit to and From Stand Sit to and from Stand Moderate Assistance,1 Person Assistance Transfers Transfer Ability Moderate Assistance,1 Person Assistance Technique Transfer Destination Bedside Commode,Chair Transfer Technique Stand Step Pivot Devices Transfer Assistive Devices Gait Belt Comments Mobility Comments Much improved functional mobility today with pt taking 3-4 small steps from commode to chair with mod assist. Pt still leans backwards in standing with poor weight shift noted. OT- Balance Assessment Sitting Balance and Reactions Static Sitting Balance Ability Fair Standing Balance and Reactions Static Standing Balance Ability Poor Dynamic Standing Balance Ability Poor Comments Other Balance Tests/Deviations/Treatment Much improved sitting balance : on edge of bed today with pt needing min to CGA only and not leaning backwards. No extensor pattern noted today in sitting. M9 OT- IP Assessment and Plan Start: 06/15/19 14:12 Freq: Status: Active Protocol: Document 06/17/19 09:28 TRISHA (Rec: 06/17/19 15:07 PJM [email or web address]) OT Summary Assessment and Plan Potential Rehabilitation Potential Good Summary OT Impairments Strength,Balance,Functional Cognition,Functional Mobility, Self-Feeding,Grooming,Dressing ,Toileting,Bathing,Toilet Transfers,Shower Transfers Progress Towards Goals Progressing Toward Goals Assessment Summary Pt much improved today in bed mobility, sitting balance, transfers and self feeding as described above. She is more alert and now able to state place (hospital). She is less apraxic during functional tasks with faster speed of processing and brighter affect noted. Good effort and participation in all tasks. Recommend SNF at d/c for further rehab services with goal of returning to [facility] if progress permits. Goals Grooming Goal Standby Assistance Dressing Goal Standby Assistance Toileting Goal Standby Assistance Toilet Transfer Goal Minimal Assistance Patient/Caregiver Education Goal Caregiver Independent Assisting Patient Days to Meet Goals 9 Frequency of Treatment Frequency Of Treatment Once a Day Treatment Plan OT Treatment Plan ADL Training,Functional Cognition Training,Functional Mobility,Patient/Family Education,Discharge Planning Discharge Recommendations OT Discharge Recommendations SNF Rehab Home Equipment Needs Defer to skilled rehab pending progress
--- NOTE | 2019-06-17 10:05 | PT.IPTN ---
Current Diagnoses Disorientation, unspecified (06/14/19) Physical Therapy Treatment Note M2 PT-IP Current Condition Start: 06/15/19 10:38 Freq: NEEDED Status: Active Protocol: Document 06/16/19 10:52 AB (Rec: 06/16/19 12:55 AB [email or web address]) Physical Therapy Current Condition Current Condition Evaluation Date 06/16/19 Treatment Diagnosis GLF; parkinson's disease; difficulty in walking Onset Date 06/14/19 Precautions Other Precautions falls M3 PT-IP Subjective Start: 06/15/19 10:38 Freq: NEEDED Status: Active Protocol: Document 06/17/19 10:05 AB (Rec: 06/17/19 10:41 AB [id number]) Subjective Physical Therapy Visit Type Type Treatment Note Visit Start Time 10:05 Visit Stop Time 10:28 Total Visit Minutes 23 Number of SPORTSPERSONS Visits 0 Physical Therapy Visit Comments Patient Comments pt continues to have confusion but able to answer questions M4 PT-IP Mobility and Gait Start: 06/15/19 10:38 Freq: NEEDED Status: Active Protocol: Document 06/17/19 10:05 AB (Rec: 06/17/19 10:41 AB [id number]) PT-Transfer Assessment Sit to and From Stand Sit to and from Stand Maximum Assistance,1 Person Assistance,Use of Upper Extremities Equipment Transfer Assistive Device Gait Belt,Front Wheeled Walker Orthotic/Prosthetic Devices or Brace: No Gait Assessment Gait Gait Assistance Required: Maximum Assistance,1 Person Assist Distance (Feet) 35 Able to Maintain Weight Bearing Status Yes During Gait Assistive Devices Assistive Device Gait Belt,Front Wheeled Walker Orthotic/Prosthetic Devices or Brace: No Gait Deviations General Gait Pattern Decreased Stride Length, Decreased Feet Clearance, Narrow Based Gait Factors Limiting Gait Function Factors Limiting Gait Function Abnormal Tonal Influences, Decreased Activity Tolerance, Decreased Strength,Difficulty Following Directions,Limited Range of Motion,Poor Balance, Poor Safety Awareness Comments Gait Comments pt sitting on chair asleep. pt's daughter Lisbet present. pt woke up and agreed to get up/ pt completed sit to stand max A and max cues. required repeated cues. pt continues to have increase posterior trunk leaning and rigidity but lesser than yesterday's. pt completed ambulation 20+35 ft using FWW max A and max cues with chair follow. pt. can be resistive and wants to sit down but with redirection, able to finish task. positioned pt in the chair. call light and table placed within reach. left pt with daughter. M5 PT-IP Objective Assessments Start: 06/15/19 10:38 Freq: NEEDED Status: Active Protocol: Document 06/16/19 10:52 AB (Rec: 06/16/19 12:55 AB [email or web address]) Orientation Orientation/Cognition Level of Alertness Alert Orientation Name Safety Awareness Decreased Safety Awareness Gross Range of Motion Lower Extremity ROM Assessment Within Functional Limits Impairments increase extensor tone noted Strength Lower Extremity Strength Assessment Bilaterally Impaired Hip 3+/5 Knee 3+/5 Muscle Tone Muscle Tone WNL No Muscle Tone Location Bilateral Lower Extremity Type of Tone Rigidity,Extensor Severity of Tone Moderate M6 PT-IP Treatment Start: 06/15/19 10:38 Freq: NEEDED Status: Active Protocol: Document 06/17/19 10:05 AB (Rec: 06/17/19 10:41 AB [id number]) Physical Therapy Treatment Education Education Provided Safety M7 PT-IP Assessment and Plan Start: 06/15/19 10:38 Freq: NEEDED Status: Active Protocol: Document 06/17/19 10:05 AB (Rec: 06/17/19 10:41 AB [id number]) PT Summary Assessment and Plan Potential Rehabilitation Potential Good Summary Impairments Pain,ROM,Strength,Balance, Coordination,Sensation,Tone, Cognition,Bed Mobility, Transfers,Gait,Activity Tolerance Progress Towards Goals Slow Progress due to Medical Issues Assessment Summary pt is progressing slowly and able to ambulate up to 35 ft today using FWW max A and max cues. pt continues to have posterior trunk lean and rigidity but lesser today compared to yesterdays. pt will require SNF rehab to improve strength and mobility. Goals Bed Mobility Goal Contact Guard Assistance Transfer Goal Contact Guard Assistance,Front Wheeled Walker Gait Goal Contact Guard Assistance,Front Wheel Walker Gait Distance 100 Days to Meet Goals 10 Frequency of Treatment Frequency Of Treatment Once a Day Treatment Plan Physical Therapy Treatment Plan Bed Mobility Training,Transfer Training,Gait Training, Therapeutic Exercise,Balance Retraining,Discharge Planning, Hot or Cold Pack,Neuromuscular Re-ed,Coordination Retraining ,Manual Therapy Other Recommendations and Next Treatment transfers, sitting/standing Focus balance/tolerance, ambulation Recommendations To Nursing Amount of Assist Needed 2 Person Assist Discharge Recommendations PT Discharge Recommendations SNF Rehab
--- NOTE | 2019-06-17 11:39 | DIET.PN ---
Dietary Progress Note Assessment: Mrs. 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 Interventions: Continue enlive bid to help meet EERs (80% pro, 60% kcal) Diet Order: General (sensitive to dairy/wheat) EER: 1200 baltazar @ 30 baltazar/kg Pro: 50 g @ 1.3g/kg Monitoring/Evaluations: Wt, PO's, ONS acceptance.
--- NOTE | 2019-06-17 11:57 | PM.DS.1 ---
History of Present Illness History of Present Illness Date Patient Seen: 06/17/19 Chief complaint: GLF, weakness Narrative: The patient is an 83-year-old female who presented to the ED for further evaluation after being found down on the floor. This is patient's 3rd fall and 3rd ED evaluation in the past 7 days. Previously seen on 06/10 and 06/12. Each ER visit was preceded by a GLF. Once again, it is suspected that patient had suffered a ground level fall. The event was unwitnessed. Patient was last seen at 1:00 p.m. in the afternoon and discovered at approximately 5:00 p.m., per patient's sister who is providing contents of the HPI. Patient was found to be incontinent of urine. Not known to be on anticoagulation or anti thrombotic therapy. In the past 10 days there has been a marked decline in patient's cognition and mobility. Specifically she is noted to be more confused and delirious. She is observed to be weak and have difficulty with ambulation. She does have some degree of Urinary incontinence at baseline, however this has been significantly worse in the last 1-2 weeks. At baseline patient ambulates independently or with a use of a cane. She does have diminished memory recall. Also known to have difficulty with speech and word finding. Recently, 3 months ago patient was diagnosed with Parkinson's. She was started on Sinemet. One week ago the dose of the Sinemet and has been adjusted (increased). Saturday she was started on lorazepam for anxiety. Family feels that patient's delirium has worsened since addition of lorazepam. PMHx of Fe anemia, Parkinson's, hypothyroidism, MV stenosis ?, osteopenia, DANE, IBS (diarrhea predominant), anxiety Discharge Providers Provider Date of admission: 06/14/19 21:28 Discharge Date: 06/17/19 Primary care physician: Sasha Mesa PA-C Consults: 06/14/19 22:24 Consult to Dietitian, Adult Routine Comment: Reason For Exam: loss of weight increasing, 6lbs this month Consult to Plant Maintenance Engineer Routine Comment: post d/c resources; info on hospice / refer 06/15/19 01:40 Consult to Occupational Therapy Evaluate & Treat Comment: Decreased ability to engage in ADLs Physician Instructions: Evaluate and treat Consult to Physical Therapy Evaluate & Treat Comment: Debility, deconditioning, frequent falls Physician Instructions: Evaluate and Treat 06/15/19 04:48 Consult to Discharge Planning Routine Comment: family wants to know if can go back to [facility] 06/15/19 04:49 Consult to Hospice Referral Routine Comment: Discharge provider: Mayte Man MD Summary Hospital Course Discharge Diagnosis: 1. Acute metabolic encephalopathy, multifactorial, likely secondary to medications now resolved 2. Dementia 3. Parkinson's disease 4. Frequent falls 5. Iron deficiency anemia 6. Severe protein calorie malnutrition 7. Hypothyroidism 8. Obstructive sleep apnea 9. Irritable bowel syndrome 10. Anxiety 11. Osteopenia 12. Mitral valve stenosis Hospital Course: Patient was admitted to the hospital after her 3rd ground level fall. She was found to be confused and acutely delirious. Her Sinemet was held. The patient improved over the next several days with improvement of her cognition, ability to communicate, and ability to participate with PT and OT. She did have a head CT on admission which was negative. She had no evidence of infection. Her care was discussed with her neurologist Dr. Mejia who concurred with the plan to discontinue her levodopa at this time the patient improved significantly. She was felt to be appropriate for discharge to correction for ongoing physical therapy and occupational therapy to allow her to return back to [facility]. The patient was deemed appropriate for discharge and arrangements were made for her to be transferred to [facility]. Status at Discharge Cognitive/behavioral status at discharge: at baseline, confused Functional status at discharge: uses cane/walker Overall status at discharge: patient is not back to baseline Time Spent with Patient Time spent: Less than 30 minutes Exam Vital Signs (past 8 hours): - 06/17/19 06:00 06/17/19 09:00 Temperature 98.2 F Pulse Rate 69 Respiratory Rate 17 Blood Pressure 114/58 L Pulse Oximetry 98 96 Oxygen Delivery Method Room Air Oxygen Flow Rate 0 Narrative Exam Narrative: Pleasant female sitting in a chair in no acute distress Lungs: Clear to auscultation Cardiac exam: Regular rate and rhythm normal S1-S2 with a 2/6 systolic ejection Abdomen: Soft nontender nondistended Extremities: No edema Objective Labs Result Diagrams: 06/14/19 18:40 06/14/19 18:40 Discharge Plan Discharge Plan Patient Disposition: SNF Transfer to: [facility] Consult as needed: Dental, Hearing, Mental health, Podiatry and Vision Discharge Med Rec/Prescriptions Prescriptions: New sennosides [senna] 8.6 mg Tablet 8.6 mg PO BID 30 Days Qty: 60 RF: 0 acetaminophen 325 mg Tablet 975 mg PO Q8H PRN (Reason: Pain, Mild (1-3)) 5 Days RF: 0 Continued multivitamin Tablet 1 tab PO DAILY RF: 0 cholecalciferol (vitamin D3) [Vitamin D3] 1,000 unit Capsule 1,000 unit PO DAILY RF: 0 Probiotic 1 cap PO DAILY RF: 0 Anxiety Balance 1 cap PO TIDWM RF: 0 bismuth subsalicylate [Pepto-Bismol] 262 mg Tablet,Chewable 2 tab PO PRN MDD 16 tabs PRN (Reason: Diarrhea) RF: 0 Iron Capsule 28 mg 18 mg PO DAILY RF: 0 Discontinued carbidopa-levodopa 25-100 mg tablet 0.5 tab PO DAILY RF: 0 carbidopa-levodopa 25-100 mg Tablet 1 tab PO BID RF: 0 lorazepam [Ativan] 1 mg tablet 0.5 mg PO TID PRN (Reason: anxiety) Qty: 10 RF: 0 carbidopa-levodopa 25-100 mg tablet 0.5 tab PO TIDWM RF: 0 Follow up/Referrals: Sasha Mesa PA-C [Primary Care Provider] - Discharge Health Status Brief summary of current health status: Please see dictated note Provider Discharge Instructions Diet: Diet as Tolerated Liquid consistency: Normal/Thin Food texture: Regular Diet comment: observation/assist with meals Oxygen: room air Skin/Wound/Dressing Care Report to your healthcare provider any signs of infection, such as:: chills, fever Special [facility] Reason for rehabilitation: Recovery r/t decondition Rehab type: Physical therapy and Occupational therapy Discharge Data Primary Care Provider: Sasha Mesa Discharges patient from system. Discharge Date/Time: 06/17/19 15:00
[2019-06-17 12:00] VITALS: BP 118/56; PULSE 74; RESP 13; TEMP 37.1; O2SAT 97
[2019-06-17] MEDS: SENNOSIDES 8.6 MG TABLET PO (12:15)
[2019-06-17] MEDS: POLYETHYLENE GLYCOL 3350 17 GM POWD.PACK PO (12:15)
[2019-06-17] MEDS: SODIUM CHLORIDE 0.9% FLUSH 10 ML IV (12:15)
[2019-06-17] MEDS: DOCUSATE 250 MG CAPSULE PO (12:15)
--- NOTE | 2019-06-17 13:57 | PC.NURSE ---
1355 Called in report to Mar at [facility]. Pt to transfer over at approx 1445 today. Family aware/updated.
--- NOTE | 2019-06-17 14:53 | CM.DPNOTE ---
DC Note: Dr Man would like pt to DC to SNF today if there is one to accept pt. Placed call to February at [facility], she expected to be able to accept pt after Mouna completed a bedside assessment this afternoon. Transport arranged for tentative p/u 1430, RN and pt's family made aware. Later learned that pt was accepted, DC order completed and signed med list, DC summary and PASRR faxed to [facility]. P: DC to [facility] via w/c today. MGEHANA Gross
--- NOTE | 2019-06-17 15:23 | CM.DPC ---
DCP Cont: Faxed signed meds, PASRR and discharge summary to [facility] at fax # [phone]. Fax confirmation scanned in. Ekaterina Lopez, Abhi Merchandise Supervisor
== END 2019-06-17 15:00 | DRG 91 ==
LOC: ED 18:06 → AC 06-15 09:06
PROVIDERS: Admitting Provider Nurse Practitioner Gerontology; Emergency Provider Emergency Medicine; PCP Physician Assistant; Visit Provider Nurse Practitioner Gerontology
DX: G92 Toxic encephalopathy (principal); E43 Unspecified severe protein-calorie malnutrition; F02.81 Dementia in other diseases classified elsewhere, unspecified severity, with behavioral disturbance; Z68.1 Body mass index [BMI] 19.9 or less, adult; F05 Delirium due to known physiological condition; F03.90 Unspecified dementia, unspecified severity, without behavioral disturbance, psychotic disturbance, mood disturbance, and anxiety; G20 Parkinson's disease; T42.8X5A Adverse effect of antiparkinsonism drugs and other central muscle-tone depressants, initial encounter; F41.9 Anxiety disorder, unspecified; I34.0 Nonrheumatic mitral (valve) insufficiency; W18.30XA Fall on same level, unspecified, initial encounter; Z91.81 History of falling
CPT/HCPCS: 36415; 70450; 72170; 73030; 80048; 80320; 81001; 81003; 82140; 82550; 84145; 84443; 84484; 85025; 86140; 87633; 97116; 97162; 97165; 97530; 97535; 99283; 99284; J1650

== ENCOUNTER → 2019-10-16 09:58 | Outpatient (ROUT) | payer MEDICARE, OTHER, SELFPAY ==
[2019-10-16 10:27] LABS: Add Manual Diff / Slide Review NO; Basophils Absolute Auto 0 /uL (0-100); Basophils Percent Auto 0.8 % (0-2); Eosinophils Absolute Auto 100 /uL (0-450); Eosinophils Percent Auto 1.6 % (2-4); Hematocrit 34.9 % (36-46); Hemoglobin 11.9 g/dL (12.0-16.0); Lymphocytes Absolute Auto 1400 /uL (1100-4500); Lymphocytes Percent Auto 30.6 % (25-40); Mean Corpuscular Hemoglobin 33.1 PG (26-34); Mean Corpuscular Volume 97.3 fL (80-100); Monocytes Absolute Auto 400 /uL (0-900); Monocytes Percent Auto 9.7 % (3-14); Neutrophils Absolute Auto 2600 /uL (1500-7000); Neutrophils Percent Auto 57.3 % (50-75); Platelet Count 243 X10^3/uL (150-400); Red Blood Cell Count 3.59 X10^6/uL (4.0-5.2); White Blood Cell Count 4.5 X10^3/uL (4.5-11.0)
[2019-10-16 10:49] LABS: Alanine Aminotransferase 18 IU/L (<35); Albumin 4.2 g/dL (3.5-5.0); Albumin Globulin Ratio 0.8 (1.0-2.8); Alkaline Phosphatase 62 U/L (38-126); Aspartate Aminotransferase 28 IU/L (14-36); BUN Creatinine Ratio 18.3 (6-22); Bilirubin Total 0.4 mg/dL (0.2-1.3); Blood Urea Nitrogen 22 mg/dL (7-17); Calcium 10.2 mg/dL (8.4-10.2); Carbon Dioxide 27 mmol/L (22-32); Chloride 105 mmol/L (98-107); Estimated Glomerular Filt Rate 42.7 mL/min (>60); Globulin 5.1 g/dL (1.7-4.1); Glucose 95 mg/dL (80-110); HEMOLYSIS < 15 (0-50); Potassium 4.3 mmol/L (3.4-5.1); Sodium 143 mmol/L (137-145); Total Protein 9.3 g/dL (6.3-8.2)
[2019-10-16 11:28] LABS: Thyroid Stimulating Hormone 3.74 uIU/mL (0.47-4.68)
[2019-10-16 11:37] LABS: Vitamin B12 647 pg/mL (239-931)
== END ==
PROVIDERS: PCP Physician Assistant; Visit Provider Nurse Practitioner Family
DX: F03.90 Unspecified dementia, unspecified severity, without behavioral disturbance, psychotic disturbance, mood disturbance, and anxiety (principal); L65.9 Nonscarring hair loss, unspecified
CPT/HCPCS: 36415; 80053; 82607; 84443; 85025

== ENCOUNTER 2019-12-05 06:15 | Emergency (ER) | payer MEDICARE, OTHER, SELFPAY ==
[2019-12-05 06:18] VITALS: BP 132/59; PULSE 79; RESP 18; TEMP 36.6; O2SAT 97
--- NOTE | 2019-12-05 06:31 | DI.RAD.S_ITS ---
PROCEDURE: XR CHEST 1V INDICATIONS: unwitnessed fall with dementia, head and neck injury TECHNIQUE: One view of the chest was acquired. COMPARISON: None. FINDINGS: Surgical changes and devices: Electronic atelectasis seen overlying the heart. Metallic densities are evident overlying the left axilla. Lungs and pleura: Lungs are clear. No pleural effusions or pneumothorax. Mediastinum: Mediastinal contours appear normal. Heart size is normal. There is aortic atherosclerosis. Bones and chest wall: No suspicious bony lesions. Overlying soft tissues appear unremarkable. IMPRESSION: No acute cardiopulmonary process is evident. Dictated by: Jerod Goetz M.D. on 12/05/2019 at 8:07 Approved by: Jerod Goetz M.D. on 12/05/2019 at 8:08
--- NOTE | 2019-12-05 06:31 | DI.CT.S_ITS ---
PROCEDURE: CT HEAD/BRAIN WO CON INDICATIONS: unwitnessed fall with bruises and abrasions to face TECHNIQUE: Noncontrast 4.5 mm thick angled axial sections acquired from the foramen magnum to the vertex, with coronal and sagittal reformats. For radiation dose reduction, the following was used: automated exposure control, adjustment of mA and/or kV according to patient size. COMPARISON: [facility], CT, CT HEAD/BRAIN WO CON, 06/14/2019, 18:43. FINDINGS: Image quality: Excellent. CSF spaces: Basal cisterns are patent. No extra-axial fluid collections. Ventricles are mildly prominent. There is corresponding parenchymal volume loss. Brain: No midline shift. No intracranial masses or hemorrhage. Christine-white matter interface is normal. Areas of decreased density are seen within the periventricular white matter of the supratentorial brain. Skull and face: Calvarium and visualized facial bones are intact, without suspicious lesions. Mucosal thickening is present involving the bilateral maxillary sinuses. Bony wall thickening of the right maxillary sinus suggests chronic right maxillary sinusitis. Sinuses: Visualized sinuses and mastoids are clear. IMPRESSION: 1. No acute intracranial hemorrhage. 2. Mild chronic small vessel ischemic changes and probable volume loss. 3. Chronic sinus disease. Note: The preliminary report provided by [facility] is concordant with the final report. Dictated by: Jerod Goetz M.D. on 12/05/2019 at 8:00 Approved by: Jerod Goetz M.D. on 12/05/2019 at 8:02
--- NOTE | 2019-12-05 06:31 | DI.CT.S_ITS ---
PROCEDURE: CT CERVICAL SPINE WO CON INDICATIONS: unwitnessed fall no neck tenderness or deformity TECHNIQUE: Noncontrast 3 mm thick sections acquired from the skull base to the T4 level. Sagittal and coronal reformats were then constructed. For radiation dose reduction, the following was used: automated exposure control, adjustment of mA and/or kV according to patient size. COMPARISON: None. FINDINGS: Image quality: Diagnostic. Bones: The craniocervical and atlantoaxial joints are well-maintained. The odontoid is intact. The vertebral body heights and prevertebral soft tissues are within normal limits throughout the cervical spine without evidence to suggest acute compression fracture. No other fractures are evident within the cervical spine. The bone mineralization is within normal limits. Moderate multilevel degenerative changes of the cervical spine are identified but there is a disc disc osteophyte complexes, and facet arthrosis. These findings are most pronounced at the levels of C4-5 and C5-6. Soft tissues: No prevertebral soft tissue swelling. Incidental note is made of mild groundglass attenuation within the bilateral upper lobes. Mucosal thickening involving the maxillary sinuses is present, but not adequately characterized. Imaged portions of the mediastinum are unremarkable. Otherwise, the remainder of the imaged soft tissues of the neck are within normal limits. IMPRESSION: 1. No displaced cervical fractures. 2. Moderate degenerative changes of the cervical spine. 3. Mild groundglass attenuation within the bilateral upper lobes is likely related to pulmonary expiration. An atypical infection cannot be completely excluded. Please correlate clinically. Note: The preliminary report provided by [facility] is concordant with the final report. Dictated by: Jerod Goetz M.D. on 12/05/2019 at 7:56 Approved by: Jerod Goetz M.D. on 12/05/2019 at 7:59
--- NOTE | 2019-12-05 06:33 | DI.RAD.S_ITS ---
PROCEDURE: XR PELVIS 1-2V INDICATIONS: unwitnessed fall, found on the floor. TECHNIQUE: 1 view(s) of the pelvis acquired. COMPARISON: [facility], CR, XR PELVIS 1-2V, 06/14/2019, 17:59. FINDINGS: Bones: No displaced pelvic fractures are identified. Please note that evaluation for subtle pelvic fractures is suboptimal on a single frontal view, however. Also, in the superior margins of the bilateral iliac crests have not been included on this study. 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 No periprosthetic fractures are appreciated. Moderate degenerative changes of the left hip and sacroiliac joints are present. Soft tissues: Visualized bowel gas pattern is normal. Atherosclerosis is evident involving the bilateral proximal thighs. No suspicious soft tissue calcifications. IMPRESSION: No displaced pelvic fractures. Dictated by: Jerod Goetz M.D. on 12/05/2019 at 8:09 Approved by: Jerod Goetz M.D. on 12/05/2019 at 8:11
--- NOTE | 2019-12-05 06:33 | DI.RAD.S_ITS ---
PROCEDURE: XR ELBOW LT 2V INDICATIONS: unwitnessed fall, complains of left arm elbow pain TECHNIQUE: 2 views of the elbow were acquired. COMPARISON: None. FINDINGS: Bones: No displaced fractures or dislocations are appreciated. No suspicious osseous lesions are identified. Soft tissues: No obvious elbow joint effusion. No suspicious soft tissue calcifications. IMPRESSION: No displaced elbow fractures. If there is high clinical concern for an acute fracture, please consider either followup imaging or CT. Dictated by: Jerod Goetz M.D. on 12/05/2019 at 8:02 Approved by: Jerod Goetz M.D. on 12/05/2019 at 8:05
--- NOTE | 2019-12-05 06:33 | DI.RAD.S_ITS ---
PROCEDURE: XR ELBOW RT 2V INDICATIONS: unwitnessed fall complains of right elbow pain TECHNIQUE: 2 views of the elbow were acquired. COMPARISON: None. FINDINGS: Bones: No displaced fractures or dislocations. No suspicious bony lesions. Soft tissues: No definite elbow joint effusion. No suspicious soft tissue calcifications. IMPRESSION: No displaced right elbow fractures. If there is high clinical concern for an acute fracture, please consider repeat x-rays or CT for further evaluation. Dictated by: Jerod Goetz M.D. on 12/05/2019 at 8:05 Approved by: Jerod Goetz M.D. on 12/05/2019 at 8:06
--- NOTE | 2019-12-05 06:46 | ED.FALL ---
HPI - Fall <Guzman Thompson MD - Last Filed: 12/05/19 07:05> General Chief Complaint: Fall Stated Complaint: GLF Time Seen by Provider: 12/05/19 06:30 Source: EMS Mode of arrival: EMS History of Present Illness HPI Narrative: CC: The patient is an 84-year-old female with a history of dementia that is a do not resuscitate, do not intubate, comfort measures only that was transferred to the emergency department from the dementia unit in the detention/assisted living across the street from the hospital. The patient had an unwitnessed fall and was found on the floor with injuries to her face. The patient is not on any blood thinners. There is no additional history available. The patient is confusing cannot tell us what happened. Related Data Home Medications Medication Instructions Recorded Confirmed Probiotic 1 cap PO DAILY 09/22/18 06/14/19 Anxiety Balance 1 cap PO TIDWM 06/10/19 06/14/19 Iron Capsule 18 mg PO DAILY 06/10/19 06/15/19 bismuth subsalicylate 2 tab PO PRN PRN MDD 16 tabs 06/10/19 06/14/19 [Pepto-Bismol] Previous Rx's Medication Instructions Recorded ferrous sulfate 325 mg (65 mg 325 mg PO DAILY #90 tab 07/22/19 iron) tablet cholecalciferol (vitamin D3) 25 1,000 unit PO DAILY #90 cap 08/03/19 mcg (1,000 unit) capsule multivitamin 1 tab PO DAILY #90 tab 08/03/19 Allergies Allergy/AdvReac Type Severity Reaction Status Date / Time Penicillins [PENICILLINS] Allergy Intermediate Rash all Verified 06/14/19 17:22 over body wheat Allergy Intermediate Red Verified 06/14/19 17:22 Blotchy spots, mainly on face dairy Allergy Intermediate Red Uncoded 06/14/19 17:22 blotchy skin mainly on face Nuts Allergy Intermediate Red Uncoded 06/14/19 17:22 blotchy spots, mainly on face Review of Systems <Guzman Thompson MD - Last Filed: 12/05/19 07:05> Review of Systems Narrative: The patient's review of systems are unobtainable at this time because of her dementia and that she had experienced an unwitnessed fall. Patient History <Guzman Thompson MD - Last Filed: 12/05/19 07:05> Medical History Hypothyroidism (Chronic Unknown) Osteopenia (Chronic Unknown) Surgical History H/O: hysterectomy (Acute) Social History household members: none Smoking Status: Never smoker second hand exposure: Yes (My used to smoke for 10 years, but then he quit in 1963) alcohol intake: never substance use type: does not use Smoking Status: Never smoker alcohol intake frequency: holidays/special occasions only Substance Use Type: does not use Exam <Guzman Thompson MD - Last Filed: 12/05/19 07:05> Narrative Exam Narrative: PHYSICAL EXAM: CONSTITUTIONAL: The patient is in no acute distress. She is arousable and appears to be awake periodically with her eyes open. Most the time she keeps her eyes closed. She is oriented to place but not to time. She does not appear to be in any acute distress at this time and is just very quiet and keeps her eyes closed. HEAD: Her head is grossly atraumatic however her upper and lower eyelids bilaterally are mildly swollen without bruising. She has abrasions over her left cheek and chin and petechiae on bruising over her right cheek. EENT: PERRL, FROM of eyes, no discharge,. No drainage from the ears, Tympanic membranes intact without evidence of hemotympanum. The external auditory canals are partially occluded with cerumen. No epistaxis or nasal drainage The patient is uncooperative and does not open her mouth. Her lips and tongue appear to be moist in normally hydrated.. NECK: Her neck appears to be supple. There is no gross jugular venous distention appreciated. Trachea is midline without any stridor. There were no palpable lymph nodes or masses appreciated. SPINE: No gross tenderness to palpation over the cervical spine. THORAX: No deformity, retractions, chest wall tenderness,. LUNGS: Clear with symmetrical breath sounds without respiratory distress HEART: Normal heart tones, regular rhythm and rate without murmur. ABDOMEN: Soft, non-tender, normal bowel sounds without guarding, rebound, rigidity or palpable mass . Rocking her pelvis with palpation side to side did not mimic any significant pain or discomfort. EXTREMITIES: The patient complains of pain in both arms. Palpation of the right arm reveals that she has tenderness and discomfort in the right elbow as I tried to flex and extend the elbow. However palpation along the humerus and out of the radius and ulna of the right arm does not elicit any pain or discomfort. Capillary refill is symmetrical as is her radial pulse. Palpation of the patient's distal humerus and elbow on the left causes pain and discomfort. Otherwise there is no other deformity appreciated. Radial pulse on the left is 1+.. SKIN: Examination of the skin revealed no other abrasions petechia or purpura NEURO: The patient is arousable opens her eyes when requested. She really does not follow any verbal commands. There is no focal facial asymmetry. The injury and abrasions of the face appear to be symmetrical. cranial nerves II-XII are symmetrical. She moves all 4 extremities. Initial Vital Signs Initial Vital Signs: Vital Signs Temperature 97.9 F 12/05/19 06:18 Pulse Rate 79 12/05/19 06:18 Respiratory Rate 18 12/05/19 06:18 Blood Pressure 132/59 L 12/05/19 06:18 Pulse Oximetry 97 12/05/19 06:18 <Samuel Coates DO - Last Filed: 12/05/19 09:21> Initial Vital Signs Initial Vital Signs: Vital Signs Temperature 97.9 F 12/05/19 06:18 Pulse Rate 79 12/05/19 06:18 Respiratory Rate 18 12/05/19 06:18 Blood Pressure 132/59 L 12/05/19 06:18 Pulse Oximetry 97 12/05/19 06:18 Course <Guzman Thompson MD - Last Filed: 12/05/19 07:05> Course Course Narrative: 0658: This CTs of her head and neck and x-rays of her chest and pelvis have been ordered to rule out any significant injury. No other workup has been initiated. We will check a blood sugar on the patient. Report will be given to Dr. Coates to check on the results. The patient is DNR/DNI comfort measures only. Orders Ordered: ED Orders 12/05/19 06:31 CT cervical spine wo con Stat CT head/brain wo con Stat XR chest 1V Stat 12/05/19 06:33 XR elbow LT 2V Stat XR elbow RT 2V Stat XR pelvis 1-2V Stat Vital Signs Vital signs: Vital Signs - 8 hr 12/05/19 06:18 12/05/19 09:01 Temperature 97.9 F Pulse Rate 79 67 Respiratory Rate 18 15 Blood Pressure 132/59 L Blood Pressure [Left Arm] 134/69 Pulse Oximetry 97 98 <Samuel Coates DO - Last Filed: 12/05/19 09:21> Course Course Narrative: Patient received in sign-out from Dr. Hoyt. I performed an independent history and physical exam. She suffers dementia and is a poor historian and contributes little. Images are somewhat delayed in their return but immediately upon receipt of C-spine imaging her C-collar is removed. Orders Ordered: ED Orders 12/05/19 06:31 CT cervical spine wo con Stat CT head/brain wo con Stat XR chest 1V Stat 12/05/19 06:33 XR elbow LT 2V Stat XR elbow RT 2V Stat XR pelvis 1-2V Stat Vital Signs Vital signs: Vital Signs - 8 hr 12/05/19 06:18 12/05/19 09:01 Temperature 97.9 F Pulse Rate 79 67 Respiratory Rate 18 15 Blood Pressure 132/59 L Blood Pressure [Left Arm] 134/69 Pulse Oximetry 97 98 MDM - Fall <Guzman Thompson MD - Last Filed: 12/05/19 07:05> Lab Data Labs: Point of Care Testing Glucose POC 135 <Samuel Coates DO - Last Filed: 12/05/19 09:21> Lab Data Labs: Point of Care Testing Glucose POC [address] scan - head: Radiologist's Impression: HEAD: NAP CSPINE: NAP Elbow: [address] [address] XRay Report Signed Patient: Dejan Angulo LMR#: [id number] : 4Acct:[id number] Age/Sex: 84 / FDate of Service: 12/05/19 Loc: ED Accession Number: [id number] Procedure: XR elbow LT 2V Ordering Provider: Guzman Thompson MD PROCEDURE: XR ELBOW LT 2V INDICATIONS: unwitnessed fall, complains of left arm elbow pain TECHNIQUE: 2 views of the elbow were acquired. COMPARISON: None. FINDINGS: Bones: No displaced fractures or dislocations are appreciated. No suspicious osseous lesions are identified. Soft tissues: No obvious elbow joint effusion. No suspicious soft tissue calcifications. IMPRESSION: No displaced elbow fractures. If there is high clinical concern for an acute fracture, please consider either followup imaging or CT. Dictated by: Jerod Goetz M.D. on 12/05/2019 at 8:02 Approved by: Jerod Goetz M.D. on 12/05/2019 at 8:05 Chart [facility] Diagn[facility] DATE TYPE STATUS AUTHOR Hx 12/05/19 06:33 12/05/19 06:33 BishnuJerod 12/05/19 06:33 BishnuJerod 12/05/19 06:31 BishnuJerod 12/05/19 06:31 12/05/19 06:31 Jerod Goetz 06/14/19 18:36 Ace,Muneer 06/14/19 17:18 Ace,Muneer 06/14/19 17:18 Ace,Muneer 06/12/19 10:41 Shayy Carbajal 06/10/19 17:33 Shayy Carbajal 12/11/18 12:41 Camilo Barros 10/21/18 10:22 Cas Morillo 07/10/18 13:00 Dejan Angulo 84, F109/22/1934 [facility] [place] [facility], Main ED R10 Fall Search Chart No Data to Display NF - Not included in interaction checking Rash all over body Red Blotchy spots, mainly on face Red blotchy skin mainly on face Red blotchy spots, mainly on face ONSET Today 09:01 Dejan Angulo 84 F [address] [address] XRay Report Signed Patient: Dejan Angulo LMR#: [id number] : 1935cct:[id number] Age/Sex: 84 / FDate of Service: 12/05/19 Loc: ED Accession Number: [id number] Procedure: XR elbow RT 2V Ordering Provider: Guzman Thompson MD PROCEDURE: XR ELBOW RT 2V INDICATIONS: unwitnessed fall complains of right elbow pain TECHNIQUE: 2 views of the elbow were acquired. COMPARISON: None. FINDINGS: Bones: No displaced fractures or dislocations. No suspicious bony lesions. Soft tissues: No definite elbow joint effusion. No suspicious soft tissue calcifications. IMPRESSION: No displaced right elbow fractures. If there is high clinical concern for an acute fracture, please consider repeat x-rays or CT for further evaluation. Dictated by: Jerod Goetz M.D. on 12/05/2019 at 8:05 Approved by: Jerod Goetz M.D. on 12/05/2019 at 8:06 Dejan Angulo 84 F [address] [address] XRay Report Signed Patient: Dejan Angulo LMR#: [id number] : [id number]:[id number] Age/Sex: 84 / FDate of Service: 12/05/19 Loc: ED Accession Number: [id number] Procedure: XR pelvis 1-2V Ordering Provider: Guzman Thompson MD PROCEDURE: XR PELVIS 1-2V INDICATIONS: unwitnessed fall, found on the floor. TECHNIQUE: 1 view(s) of the pelvis acquired. COMPARISON: [facility], , XR PELVIS 1-2V, 06/14/2019, 17:59. FINDINGS: Bones: No displaced pelvic fractures are identified. Please note that evaluation for subtle pelvic fractures is suboptimal on a single frontal view, however. Also, in the superior margins of the bilateral iliac crests have not been included on this study. 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 No periprosthetic fractures are appreciated. Moderate degenerative changes of the left hip and sacroiliac joints are present. Soft tissues: Visualized bowel gas pattern is normal. Atherosclerosis is evident involving the bilateral proximal thighs. No suspicious soft tissue calcifications. IMPRESSION: No displaced pelvic fractures. Dictated by: Jerod Goetz M.D. on 12/05/2019 at 8:09 Approved by: Jerod Goetz M.D. on 12/05/2019 at 8:11 Dejan Angulo 84 F [address] [address] XRay Report Signed Patient: KevDejan LMR#: [id number] : 1935cct:[id number] Age/Sex: 84 / FDate of Service: 12/05/19 Loc: ED Accession Number: [id number] Procedure: XR chest 1V Ordering Provider: Guzman Thompson MD PROCEDURE: XR CHEST 1V INDICATIONS: unwitnessed fall with dementia, head and neck injury TECHNIQUE: One view of the chest was acquired. COMPARISON: None. FINDINGS: Surgical changes and devices: Electronic atelectasis seen overlying the heart. Metallic densities are evident overlying the left axilla. Lungs and pleura: Lungs are clear. No pleural effusions or pneumothorax. Mediastinum: Mediastinal contours appear normal. Heart size is normal. There is aortic atherosclerosis. Bones and chest wall: No suspicious bony lesions. Overlying soft tissues appear unremarkable. IMPRESSION: No acute cardiopulmonary process is evident. Dictated by: Jerod Goetz M.D. on 12/05/2019 at 8:07 Approved by: Jerod Goetz M.D. on 12/05/2019 at 8:08 Discharge Plan Departure Patient Disposition: Home Clinical Impression: Fall Qualifiers: Encounter type: initial encounter Qualified Code(s): W19.XXXA - Unspecified fall, initial encounter Injury of head and neck Qualifiers: Encounter type: initial encounter Qualified Code(s): S09.90XA - Unspecified injury of head, initial encounter Abrasion of face Qualifiers: Encounter type: initial encounter Qualified Code(s): S00.81XA - Abrasion of other part of head, initial encounter Dementia Qualifiers: Dementia type: unspecified type Dementia behavioral disturbance: without behavioral disturbance Qualified Code(s): F03.90 - Unspecified dementia without behavioral disturbance Activity Restrictions/Additional Instructions: *You have been diagnosed with [ fall with facial abrasions ] *What to do: *Continue nora medications as directed *Follow up with your primary care provider in 2-3 days, call for an appointment. Let them know you were seen in the Emergency Department and that we ask that you be seen in follow up *Return to ER if you should have any new, worsening or concerning symptoms Prescriptions: No Action ferrous sulfate [Iron (ferrous sulfate)] 325 mg (65 mg iron) tablet 325 mg PO DAILY Qty: 90 RF: 0 cholecalciferol (vitamin D3) [Vitamin D3] 1,000 unit capsule 1,000 unit PO DAILY Qty: 90 RF: 0 multivitamin Tablet 1 tab PO DAILY Qty: 90 RF: 0 Probiotic 1 cap PO DAILY RF: 0 Anxiety Balance 1 cap PO TIDWM RF: 0 bismuth subsalicylate [Pepto-Bismol] 262 mg Tablet,Chewable 2 tab PO PRN MDD 16 tabs PRN (Reason: Diarrhea) RF: 0 Iron Capsule 28 mg 18 mg PO DAILY RF: 0 Referrals: Sasha Mesa PA-C [Primary Care Provider] - ED Sign-out <Guzman Thompson MD - Last Filed: 12/05/19 07:05> Cosign ED Attending Mami Attestation: I was immediately available in the department for consultation. This documentation has been reviewed and I agree with assessment and plan. Supervised by Guzman Thompson MD
--- NOTE | 2019-12-05 08:59 | PC.NURSE ---
this time, noted facial redness, pt able to move all extremities, skin warm dry and pink.
[2019-12-05 09:01] VITALS: BP 134/69; PULSE 67; RESP 15; O2SAT 98
[2019-12-05 09:40] VITALS: BP 134/63; PULSE 87; RESP 12; TEMP 36.1
--- NOTE | 2019-12-05 09:51 | PC.NURSE ---
report called to [facility], spoke with Nancy. transport eta at 10am.
--- NOTE | 2019-12-05 10:49 | PC.NURSE ---
assist from stretcher to wheelchair, tolerated well.
== END 2019-12-05 10:52 | disposition home or self-care (01) ==
PROVIDERS: Emergency Provider Emergency Medicine; PCP Physician Assistant
DX: S09.90XA Unspecified injury of head, initial encounter (principal); S00.212A Abrasion of left eyelid and periocular area, initial encounter; S00.211A Abrasion of right eyelid and periocular area, initial encounter; S00.81XA Abrasion of other part of head, initial encounter; M25.522 Pain in left elbow; M25.521 Pain in right elbow; F03.90 Unspecified dementia, unspecified severity, without behavioral disturbance, psychotic disturbance, mood disturbance, and anxiety; W18.30XA Fall on same level, unspecified, initial encounter
CPT/HCPCS: 70450; 71045; 72125; 72170; 73070; 82962; 99284; 99285

== ENCOUNTER → 2020-01-27 07:04 | Outpatient (ROUT) | payer MEDICARE, OTHER, SELFPAY ==
[2020-01-27 08:27] LABS: BUN Creatinine Ratio 18.6 (6-22); Blood Urea Nitrogen 19 mg/dL (7-17); Calcium 9.7 mg/dL (8.4-10.2); Carbon Dioxide 27 mmol/L (22-32); Chloride 107 mmol/L (98-107); Estimated Glomerular Filt Rate 51.5 mL/min (>60); Glucose 94 mg/dL (80-110); HEMOLYSIS < 15 (0-50); Potassium 4.3 mmol/L (3.4-5.1); Sodium 139 mmol/L (137-145)
== END ==
PROVIDERS: PCP Physician Assistant; Visit Provider Nurse Practitioner Family
DX: Z51.81 Encounter for therapeutic drug level monitoring (principal)
CPT/HCPCS: 36415; 80048

== ENCOUNTER → 2020-04-20 07:28 | Outpatient (ROUT) | payer MEDICARE, OTHER, SELFPAY ==
[2020-04-20 08:20] LABS: Add Manual Diff / Slide Review NO; Basophils Absolute Auto 0 /uL (0-100); Basophils Percent Auto 0.7 % (0-2); Eosinophils Absolute Auto 100 /uL (0-450); Eosinophils Percent Auto 2.3 % (2-4); Hematocrit 31.7 % (36-46); Hemoglobin 10.9 g/dL (12.0-16.0); Lymphocytes Absolute Auto 1800 /uL (1100-4500); Lymphocytes Percent Auto 41.9 % (25-40); Mean Corpuscular HGB Conc 34.3 % (30-36); Mean Corpuscular Hemoglobin 33.1 PG (26-34); Mean Corpuscular Volume 96.5 fL (80-100); Monocytes Absolute Auto 400 /uL (0-900); Monocytes Percent Auto 8.8 % (3-14); Neutrophils Absolute Auto 1900 /uL (1500-7000); Neutrophils Percent Auto 46.3 % (50-75); Platelet Count 245 X10^3/uL (150-400); Red Blood Cell Count 3.29 X10^6/uL (4.0-5.2); Red Cell Distribution Width 13.6 % (11.6-14.8); White Blood Cell Count 4.2 X10^3/uL (4.5-11.0)
[2020-04-20 08:33] LABS: BUN Creatinine Ratio 24.5 (6-22); Blood Urea Nitrogen 23 mg/dL (7-17); Calcium 9.6 mg/dL (8.4-10.2); Carbon Dioxide 25 mmol/L (22-32); Chloride 105 mmol/L (98-107); Estimated Glomerular Filt Rate 56.6 mL/min (>60); Glucose 87 mg/dL (80-110); HEMOLYSIS < 15 (0-50); Potassium 3.9 mmol/L (3.4-5.1); Sodium 136 mmol/L (137-145)
== END ==
PROVIDERS: PCP Physician Assistant; Visit Provider Nurse Practitioner Family
DX: R53.83 Other fatigue (principal)
CPT/HCPCS: 36415; 80048; 85025

== ENCOUNTER → 2020-05-20 08:17 | Outpatient (ROUT) | payer MEDICARE, OTHER, SELFPAY ==
[2020-05-20 09:01] LABS: HEMOLYSIS < 15 (0-50); Iron 53 ug/dL (37-170)
[2020-05-20 09:12] LABS: Percent Iron Saturation 23 % (15-50); Total Iron Binding Capacity 234 ug/dL (265-497); Transferrin 162 mg/dL (206-381)
== END ==
PROVIDERS: PCP Physician Assistant; Visit Provider Nurse Practitioner Family
DX: D64.9 Anemia, unspecified (principal)
CPT/HCPCS: 36415; 83540; 83550